=== PATIENT | male | born 1935 | race Asian ===

== ENCOUNTER 2024-03-24 20:09 | Observation (INO) | payer OTHER, SELFPAY ==
[2024-03-24 16:37] VITALS: BP 123/67
[2024-03-24 17:06] LABS: % Basophils 0.1 % (0-2); % Eosinophils 0.3 % (0-6); % Immature Granulocytes 0.8 % (0-0.5); % Lymphocytes 5.4 % (20.5-51.1); % Monocytes 6.2 % (1.7-9.3); % Neutrophils 87.2 % (42.2-75.2); Absolute Immature Granulocytes 0.1 10^3/uL (0-0.05); Absolute Lymphocytes 0.4 10^3/uL (1.2-3.4); Absolute Monocytes 0.5 10^3/uL (0.1-0.6); Absolute Neutrophils 6.8 10^3/uL (1.4-6.5); Hematocrit 37.2 % (39.0-52.0); Hemoglobin 13.1 g/dL (13.0-18.0); Mean Corp Hgb Conc. 35.2 g/dL (33.0-37.0); Mean Corpuscular Hgb 30.1 pg (27.0-31.0); Mean Corpuscular Volume 85.5 fL (80.0-94.0); Mean Platelet Volume 9.2 fL (7.4-10.4); Nucleated Red Blood Cells % 0 % (-); Platelet Count 148 10^3/uL (130-400); Red Blood Cell Count 4.35 10^6/uL (4.70-6.10); Red Cell Dist. Width 12.6 % (11.5-14.5); White Blood Cell Count 7.7 10^3/uL (4.8-10.8)
[2024-03-24 17:09] LABS: ALT (SGPT) 25 U/L (0-50); AST (SGOT) 23 U/L (17-59); Albumin 4.2 g/dl (3.5-5.0); Alkaline Phosphatase 121 U/L (38-126); Blood Urea Nitrogen 16 mg/dl (9-20); Calcium 8.8 mg/dl (8.4-10.2); Chloride 95 mmol/L (98-107); Glucose 224 mg/dl (70-99); Potassium 4.7 mmol/L (3.5-5.1); Sodium 133 mmol/L (135-145); Total Bilirubin 1.7 mg/dl (0.2-1.3); eGFR > 60.00
[2024-03-24 17:26] LABS: Carbon Dioxide 26 mmol/L (22-30)
[2024-03-24 18:22] VITALS: BP 137/53
[2024-03-24 18:49] LABS: COVID-19 Antigen Positive (Negative)
[2024-03-24 19:00] VITALS: BP 128/66
--- NOTE | 2024-03-24 19:10 | ED.GENMED ---
History of Present Illness
General
Chief Complaint: Weakness
Source: patient and family
Exam Limitations: none
Time Seen by Provider: 03/24/24 19:03
History of Present Illness
History of Present Illness:
See MDM
Past History
Past History
ED Past Medical History: NIDDM, Psychiatric (dementia) and Other (cirrhosis, ?hepatitis)
ED Past Surgical History: Other (liver transplant)
Patient has exhibited threatening behavior?: No
PSI?: No
Social History
Tobacco: Non-smoker
Alcohol: Former
Drug: None
Personal: Single
Living: with family
Employment: Retired
Phy Exam
Physical Exam
Physical Exam:
See MDM
Course
Orders/Labs/Results
Orders:
Orders
03/24/24 16:45
Complete Blood Count/With Diff Urgent
Comprehensive Metabolic Panel Urgent
03/24/24 18:28
COVID-19 Antigen Urgent
Source: Nasal Swab
Influenza A+B Rapid Molecular Urgent
SAMEERA Source: Nasal Swab
Specimen Description:
03/24/24 19:10
0.9% Sodium Chloride 1000 ml [Nss] 1,000 ml IV BOLUS
Abnormal Lab Results
03/24/24 03/24/24
16:45 18:28
RBC 4.35 L 10^6/uL
(4.70-6.10)
Hct 37.2 L %
(39.0-52.0)
Abs Immat Gran (auto) 0.1 H 10^3/uL
(0-0.05)
Absolute Neuts (auto) 6.8 H 10^3/uL
(1.4-6.5)
Absolute Lymphs (auto) 0.4 L 10^3/uL
(1.2-3.4)
Immature Gran % 0.8 H %
(0-0.5)
Neutrophils % 87.2 H %
(42.2-75.2)
Lymphocytes % 5.4 L %
(20.5-51.1)
Sodium 133 L mmol/L
(135-145)
Chloride 95 L mmol/L
(98-107)
Glucose 224 H mg/dl
(70-99)
Total Bilirubin 1.7 H mg/dl
(0.2-1.3)
SARS-CoV-2 Antigen Positive A
(Negative)
03/24/24 16:45
03/24/24 16:45
Vital Signs
Initial and Last Documented VS:
Initial Vital Signs
Temp Pulse Resp BP Pulse Ox
98.8 F 93 16 123/67 94
03/24/24 16:37 03/24/24 16:37 03/24/24 16:37 03/24/24 16:37 03/24/24 16:37
Last Documented Vital Signs
Temp Pulse Resp BP Pulse Ox
98.8 F 93 16 123/67 94
03/24/24 16:37 03/24/24 16:37 03/24/24 16:37 03/24/24 16:37 03/24/24 16:37
MDM/Problems Addressed
Differential Diagnosis Includes:
HPI and MDM Narrative:
88-year-old male presenting with generalized weakness and fatigue. This has been ongoing for the past several days. Family concerned because he has been so weak that he is not eating and drinking. They did test yesterday but was negative. On
arrival, patient is generally fatigued. He is unable to even sit himself up for lung exam. He is clinically dry. Will give IV fluids. Patient found to be COVID-positive. He is afebrile and not requiring supplemental oxygen. Lungs otherwise
clear. Will admit based on the fact that he is unable to perform ADLs
Physical exam
General: Weak and frail
HEENT: protecting airway. Dry mucous membranes
Neck: supple
CV: No evidence of cyanosis. Regular rate and
Resp: No accessory muscle use. Lungs clear
Abd: Non-distended
Extremities: No deformities
Neuro: alert
Psych: Flat affect
Skin: Intact
Problems Addressed including Acute and Chronic Conditions affecting care:
1. COVID-positive
Acuity: acute
Prognosis: stable
Details: Patient not requiring supplemental oxygen. Lungs clear
2. Generalized weakness
Acuity: acute
Prognosis: unstable
Details: Likely in the setting of COVID and decreased p.o. intake. Will give IV fluids
3. Hyperglycemia
Acuity: acute
Prognosis: stable
Details: Likely in setting of concurrent infectious etiology. Will give IV fluids. No evidence of DKA
Updates
Given that patient is profoundly weak and unable to perform activities of daily living, will admit
Differential Diagnosis (but not limited to): Pneumonia, COVID, influenza, dehydration, UTI
Testing considered: Chest x-ray lungs clear
Drug therapy (if applicable): OTC meds, please see d/c instruction regarding Rx drugs
Amount and/or Complexity of Data Reviewed
Clinical info obtained from: Patient. Son indicates decreased p.o. intake
External data reviewed: N/A
Labs I independently reviewed (but not limited to): White blood cell count normal, hyperglycemia
Radiology: N/A
Pulse Ox: not hypoxic
EKG independently reviewed: N/A
Cmm Operator: Sinus rhythm
Critical Care: N/A
Risk of Complication:
Social Determinants of health: Good social support
Discussed with other providers: Hospitalist
Escalation of Care includes Admit/Obs: Given profound weakness and the inability to perform ADLs, will admit
Occasional wrong word or 'sound a like' substitutions may have occurred due to the inherent limitations of voice recognition software. Read the chart carefully and recognize, using context, where substitutions have occurred.
*Critical Care Note
Total Time (30-74mins, 75-104mins- exclusive of procedures): Not Applicable
ED Attending Note
-
Portions of this chart may have been created with voice recognition software.� Occasional wrong word or��sound alike� substitutions may have occurred due to the inherent limitations of voice recognition software.
Discharge Plan
Departure
Patient Disposition: Admit
Date of Disposition: 03/24/24
Time of Disposition: 19:19
Admit to: Med/Surg
Presentation/result/management discussed w/ accepting MD/DO: Hospitalist
Discharge Problem:
COVID, Acute dehydration, Weakness
Prescriptions:
No Action
donepezil 10 mg tablet
10 mg PO HS
tamsulosin 0.4 mg capsule
0.4 mg PO BID
tacrolimus 1 mg Capsule
1 mg PO DAILY
Vemlidy 25 mg tablet
25 mg PO DAILY
escitalopram oxalate 5 mg tablet
5 mg PO DAILY
metformin 500 mg Tablet
500 mg PO BID@0800,1700 Qty: 60 0RF
oseltamivir 30 mg Capsule
30 mg PO BID 10 Days Qty: 20 0RF
Rx Instructions:
immunocompromised patient, 10 day course
Referrals:
Bunny Landeros MD [Family Provider] -
Interventions
Interventions:
*Risk Screen - Suicide Last Done: 03/24/24 18:24
*General Assessment Last Done: 03/24/24 18:24
*Neglect/Abuse Screening Last Done: 03/24/24 18:24
ED- Fall Risk Assessment Last Done: 03/24/24 18:24
*ED COVID-19 Vaccine History Last Done: 03/24/24 18:24
ED- Cardiac Assessment Last Done: 03/24/24 18:24
ED- Neurological Assessment Last Done: 03/24/24 18:24
ED- Pulmonary Assessment Last Done: 03/24/24 18:24
Discharge Date and Time
Print Language: SAMI
--- NOTE | 2024-03-24 19:17 | HPS.HSE ---
Family Physician
-
Family Physician: Bunny Landeros
Chief Complaint
-
For cough and weakness
History of Present Illness
88-year-old male who has a past medical history of liver transplantation patient previously been in usual state of health. He is generally active and communicative. Apparently started having nonproductive cough without fevers or chills over the
last 2 to 3 days. Yesterday was tested for COVID at home which was negative. However this morning the patient became very weak. He was unable to tolerate any p.o. He was not sitting up to even try to eat. He was having no nausea or vomiting.
There was no diarrhea. He denies any abdominal pain. He had no chest pain. There was no palpitations lightheadedness or dizziness. Patient has not had anything to eat all day today.
In the emergency department he was afebrile blood pressure was 128/66 pulse 93 and was at 94% on room air. CBC was unremarkable. Chemistries were notable for a sodium of 133 but otherwise unremarkable. T. bili was slightly elevated at 1.7 but
LFTs were otherwise within normal limits. He is COVID test was positive.
Medical History
Past Medical History
Past Medical History: Reports Dementia
Additional Past Medical History:
BPH
Past Surgical History: Reports Other (Liver Transplant)
Social History
Tobacco: Non-smoker
Alcohol: None
Drug: None
Personal:
Living: With Family
Employment: Retired
Family History
Family History: Not pertinent
Allergies / Home Medications
Allergies reflects when Allergies were last updated in [facility].
Home Medications with original date entered in [facility]
Allergy/Medication List:
Allergies
Allergy/AdvReac Type Severity Reaction Status Date / Time
No Known Allergies Allergy Verified 11/30/22 22:55
Home Medications
donepezil 10 mg tablet 10 mg PO HS Neurological Condition 11/26/22
tacrolimus 1 mg capsule, immediate-release 1 mg PO DAILY Autoimmune Disorder 11/26/22
tamsulosin 0.4 mg capsule 0.4 mg PO BID Urinary Issue 11/26/22
tenofovir alafenamide 25 mg tablet (Vemlidy) 25 mg PO DAILY Infection 11/26/22
escitalopram oxalate 5 mg tablet 5 mg PO DAILY Mental Health/Anxiety 06/24/23
fexofenadine 180 mg tablet 180 mg PO QPM Allergies 03/24/24
loperamide 2 mg tablet (Anti-Diarrheal (loperamide)) 2 mg PO DAILY diarrhea 03/24/24
Review of Systems
-
History Source: Patient and Family
Constitutional: Reports Fatigue
EENT: Reports No Symptoms
Respiratory: Reports Cough
Cardiac: Reports No Symptoms
Abdomen/GI: Reports No Symptoms
: Reports No Symptoms
Musculoskeletal: Reports No Symptoms
Skin: Reports No Symptoms
Neurological: Reports No Symptoms
Endocrine: Reports No Symptoms
Hematologic/Lymphatic: Reports No Symptoms
Psych: Reports No Symptoms
Physical Exam
Vital Signs
Vital Signs
Temp Pulse Resp BP Pulse Ox
98.8 F 93 16 128/66 94
03/24/24 16:37 03/24/24 16:37 03/24/24 16:37 03/24/24 19:00 03/24/24 19:00
Physical Exam
General: No Apparent Distress and Poor Appetite
HEENT: NormoCephalic, Anicteric, PERRLA and Other (dry mucus membranes)
Respiratory: Clear
Cardiac: S1/S2 and Regular Rhythm
Breast: Deferred by me
GI: Soft, Non Tender, Non Distended and Normal Bowel Sounds
Rectal: Deferred by Provider
Genito-urinary: Deferred by me
Musculoskeletal: No Clubbing, No Cyanosis and No Edema
Skin: Warm
Neuro: AO x 3
Hematologic/Lymphatic: No Lymphadenopathy
Psych: Calm
Laboratory Results
-
03/24/24 16:45
03/24/24 16:45
Laboratory Results
Total Bilirubin 1.7 mg/dl (0.2-1.3) H 03/24/24 16:45
AST 23 U/L (17-59) 03/24/24 16:45
ALT 25 U/L (0-50) 03/24/24 16:45
Alkaline Phosphatase 121 U/L (38-126) 03/24/24 16:45
Data Reviewed
-
Lab Data: Labs Reviewed by me
Old Records: Reviewed
Impression/Plan
-
IMPRESSION:
88-year-old male with past medical history significant for liver transplantation on immunosuppressants who presents to the emergency department with cough fatigue and weakness and inability to tolerate p.o. Unable to go home due to weakness. Found
to have COVID in the emergency department. Labs otherwise unremarkable.
PLAN:
COVID 19 infection - Patient with weakness and fatigue and poor po intake from COVID 19. High risk patient due to transplant and immunosuppression. No oxygen requirements.
- admit to observation
- start paxlovid
- supportive care with antitussives
- iv fluids NS at 100ml/hr after initial 1 L bolus
- advance diet
- PT eval
Liver Tx
- continue tacrolimus 1mg daily
- continue Vemlidy 25mg po daiy
BPH
- tamsulosin 0.8 hs
DVT PPX - lovenox sq
Full Code
[2024-03-24] MEDS: NSS 1000 IV ×2 (19:28→21:47)
[2024-03-24 20:00] VITALS: BP 126/67
[2024-03-24 20:55] VITALS: BP 123/74; BMI 22.5
[2024-03-24] MEDS: LOVENOX 40 MG SC (21:32)
[2024-03-24] MEDS: MUCINEX PO (22:13)
[2024-03-24 23:20] VITALS: BP 120/74
[2024-03-24] MEDS: PAXLOVID 150-100 MG DOSE PACK 1 DOSE PO (23:59)
[2024-03-25 07:00] VITALS: BP 135/71
[2024-03-25] MEDS: MUCINEX 600 MG PO ×2 (08:38→20:42)
[2024-03-25] MEDS: LEXAPRO 5 MG PO (08:38)
[2024-03-25] MEDS: PAXLOVID 150-100 MG DOSE PACK 1 DOSE PO ×2 (08:38→20:42)
[2024-03-25] MEDS: PROGRAF 1 MG PO (08:38)
[2024-03-25] MEDS: NON-FORMULARY ITEM 25 MG PO (08:39)
[2024-03-25] MEDS: NSS 1000 IV ×2 (08:50→17:33)
[2024-03-25 09:05] LABS: Blood Urea Nitrogen 15 mg/dl (9-20); Calcium 8.1 mg/dl (8.4-10.2); Carbon Dioxide 29 mmol/L (22-30); Chloride 97 mmol/L (98-107); Estimated Creatinine Clearance 43 ml/min; Glucose 176 mg/dl (70-99); Potassium 4.2 mmol/L (3.5-5.1); Sodium 133 mmol/L (135-145); eGFR > 60.00
--- NOTE | 2024-03-25 10:46 | W.PN.HOSP.TC ---
Today's Communication/Plan
-
PT eval
monitor po intake
Ivf in the interim
paxlovid
Assessment / Plan
Assessment / Plan
IMPRESSION:
88-year-old male with past medical history significant for liver transplantation on immunosuppressants who presents to the emergency department with cough fatigue and weakness and inability to tolerate p.o. Unable to go home due to weakness. Found
to have COVID in the emergency department. Labs otherwise unremarkable.
PLAN:
COVID 19 infection - Patient with weakness and fatigue and poor po intake from COVID 19. High risk patient due to transplant and immunosuppression.
- remains on room air for now.
- started paxlovid -complete 5d course.
- supportive care with antitussives
- iv fluids NS for now. DC if tolerating diet.
- advance diet
- PT eval
Liver Tx
- continue tacrolimus 1mg daily
- continue Vemlidy 25mg po daiy
BPH
- tamsulosin 0.8 hs
DVT PPX - lovenox sq
Full Code
Anticipated Discharge: 24 - 48 hours
Subjective/Interval History
-
Date of Service: March 25, 2024
no overnight events
remains on air
no complaints
Objective Data
-
Labs:
Laboratory Results
03/25/24
07:59
Sodium 133 L
Potassium 4.2
Chloride 97 L
Carbon Dioxide 29
BUN 15
Creatinine 1.0
Glucose 176 H
Calcium 8.1 L
Vital Signs:
Vital Signs
Temp Pulse Resp BP Pulse Ox
99 F 72 16 135/71 92
03/25/24 07:00 03/25/24 07:00 03/25/24 07:00 03/25/24 07:00 03/25/24 07:00
I&O
03/24/24 03/25/24 03/26/24
06:59 06:59 06:59
Intake Total 1099 / 1099
Balance 1099
Physical Exam
-
General: No Apparent Distress
HEENT: Normocephalic and Atraumatic
Respiratory: Clear to Auscultation; Negative Wheezes or Rales
Cardiac: Regular Rhythm and S1/S2
GI: Soft, Nontender, Nondistended and Normal Bowel Sounds
Musculoskeletal: No Edema
Neuro: Awake and AO x 3
Psych: Calm
--- NOTE | 2024-03-25 10:51 | CM ---
Addendum entered by Pat Olson, RN 03/25/24 14:39:
CM consult received for VN/homecare. Referral sent for VN via [facility].
Original Note:
Reviewed the chart notes and spoke with the patient's son via telephone due to patient being Covid + with documented dementia. The patient is being admitted under observational status. The [facility] letter was explained to the son and a copy given to
the patient's RN to place in room for further review if needed. The patient's son had no questions with regards to the letter.
The patient resides with his son in a two story home with four steps to enter. The patient is independent with ADLs. No DME/VN/SNF per son. The patient's pharmacy of choice is the [facility]. CM continues to be available to
patient/family and is monitoring medical plan for needs at discharge.
Plan: Discharge plans will depend on the patient's progress. POX current 92% RA.
[2024-03-25 15:00] VITALS: BP 118/70
[2024-03-25] MEDS: CLARITIN 10 MG PO (17:30)
[2024-03-25] MEDS: ARICEPT 10 MG PO (17:30)
[2024-03-25] MEDS: LOVENOX 40 MG SC (20:41)
[2024-03-25 23:16] VITALS: BP 127/77
[2024-03-26] MEDS: NSS 1000 IV (02:16)
[2024-03-26 07:40] VITALS: BP 116/59
[2024-03-26] MEDS: PAXLOVID 150-100 MG DOSE PACK 1 DOSE PO (08:23)
[2024-03-26] MEDS: PROGRAF 1 MG PO (08:23)
[2024-03-26] MEDS: NON-FORMULARY ITEM 25 MG PO (08:23)
[2024-03-26] MEDS: MUCINEX 600 MG PO (08:23)
[2024-03-26] MEDS: LEXAPRO 5 MG PO (08:23)
--- NOTE | 2024-03-26 11:05 | W.PN.HOSP.TC ---
Today's Communication/Plan
-
cont paxlovid
dc home
Assessment / Plan
Assessment / Plan
IMPRESSION:
88-year-old male with past medical history significant for liver transplantation on immunosuppressants who presents to the emergency department with cough fatigue and weakness and inability to tolerate p.o. Unable to go home due to weakness. Found
to have COVID in the emergency department. Labs otherwise unremarkable.
PLAN:
COVID 19 infection - Patient with weakness and fatigue and poor po intake from COVID 19. High risk patient due to transplant and immunosuppression.
- remains on room air for now.
- started paxlovid -complete 5d course. Hold flomax while paxlovid
- supportive care with antitussives
- DC IVF. tolerating diet.
- advance diet
- PT eval
Liver Tx
- continue tacrolimus 1mg daily
- continue Vemlidy 25mg po daiy
BPH
-Hold flomax while paxlovid
DVT PPX - lovenox sq
Full Code
PT/OT-home VN
More than 30 minutes spent in discharge including
Final examination of the patient
Summarizing hospital stay
Instructions for continuing care to all relevant caregivers
Preparation of discharge records, prescriptions, and referral forms
Total time spent (in minutes): 45
update son over the phone. agreed for dc
Anticipated Discharge: Today
Subjective/Interval History
-
Date of Service: March 26, 2024
Tolerating diet
sitting in bed
on room air
feeling alot better
Objective Data
-
Vital Signs:
Vital Signs
Temp Pulse Resp BP Pulse Ox
97.6 F 66 18 116/59 97
03/26/24 07:40 03/26/24 07:40 03/26/24 07:40 03/26/24 07:40 03/26/24 07:40
I&O
03/25/24 03/26/24 03/27/24
06:59 06:59 06:59
Intake Total 1099 / 3119
Balance 1099 / 3119
Physical Exam
-
General: No Apparent Distress and Other (sitting in chair)
HEENT: Normocephalic and Atraumatic
Respiratory: Clear to Auscultation; Negative Wheezes or Rales
Cardiac: Regular Rhythm and S1/S2
GI: Soft, Nontender, Nondistended and Normal Bowel Sounds
Musculoskeletal: No Edema
Neuro: Awake and AO x 3
Psych: Calm
--- NOTE | 2024-03-26 11:15 | W.DCSUMMARY ---
Discharge Summary
Discharge Data
Date of Admission: 03/24/24
Date of Discharge: 03/26/24
-
Pending Results: No
Hospital Course
88-year-old male with past medical history significant for liver transplantation on immunosuppressants who presents to the emergency department with cough fatigue and weakness and inability to tolerate p.o. patient was found to be COVID-positive.
Patient was stable on room air. Patient was started on Paxlovid. Patient was started on IV fluid resuscitation. Flomax was held while on Paxlovid. Patient diet slowly improved. IV fluid was discontinued. Patient was evaluated by physical
therapy and recommended home VN. Patient remained stable on room air and patient was ambulating in room without any difficulty. Patient stated he was feeling better. Patient be discharged home with VN. Patient son was updated on day of
discharge and agree with discharge planning home.
Discharge Plan
-
Patient Disposition: Home with Home Care
Discharge Diagnosis/Procedures: Acute COVID-19 infection
Condition: Fair
Diet: As tolerated
Activity: With assistance and As tolerated
Driving Restrictions: No driving
Other Services: VN
Activity Restrictions/Additional Instructions:
Hold Tamsulosin ( flomax) while on Paxlovid
Referrals:
Bunny Landeros MD [Family Provider] - in less than 1 week
Prescriptions:
New
Paxlovid 150-100 mg tablets,dose pack
See Rx Instructions .ROUTE .COMPLEX Qty: 20 0RF
Rx Instructions:
orally per package directions. Take for additional 6 dose.
Continued
donepezil 10 mg tablet
10 mg PO QPM
tacrolimus 1 mg Capsule
1 mg PO DAILY
Vemlidy 25 mg tablet
25 mg PO DAILY
escitalopram oxalate 5 mg tablet
5 mg PO DAILY
loperamide [Anti-Diarrheal (loperamide)] 2 mg Tablet
2 mg PO DAILY
fexofenadine 180 mg Tablet
180 mg PO QPM
Held
tamsulosin 0.4 mg capsule
0.8 mg PO QPM
Hold Instructions: Resume on 03/30/24. Hold while on Paxlovid
Discharge Orders:
Discharge Patient (As Directed); Ordered 03/26/24
Ordered By: Gen Villaseñor
Discharge Date and Time
Discharge Date/Time: 03/26/24 14:27
Print Language: NIUEAN
--- NOTE | 2024-03-26 12:43 | CM ---
Reviewed the chart notes. Patient for discharge to home today with VN services. CM continues to be available to patient/family and is monitoring medical plan for needs at discharge.
Plan: Discharge to home with VN. Son will provide transportation home.
[2024-03-26 13:40] VITALS: BP 127/67
== END 2024-03-26 14:27 | disposition home health service (06) ==
LOC: 2 NORTH 20:09
PROVIDERS: Emergency Medicine; Physician Assistant; ADMITTING PHYSICIAN Internal Medicine; ATTENDING PHYSICIAN Hospitalist; EMERGENCY PHYSICIAN Student in an Organized Health Care Education/Training Program; FAMILY PHYSICIAN Family Medicine
DX: U07.1 COVID-19 (principal); R53.1 Weakness; Z94.4 Liver transplant status; E11.65 Type 2 diabetes mellitus with hyperglycemia; R53.83 Other fatigue; E86.0 Dehydration; D84.821 Immunodeficiency due to drugs; R05.9 Cough, unspecified; F03.90 Unspecified dementia, unspecified severity, without behavioral disturbance, psychotic disturbance, mood disturbance, and anxiety; N40.0 Benign prostatic hyperplasia without lower urinary tract symptoms; Z79.621 Long term (current) use of calcineurin inhibitor; Z79.624 Long term (current) use of inhibitors of nucleotide synthesis
CPT/HCPCS: 80048; 80053; 83735; 85025; 87502; 87811; 96360; 97162; 99284; G0378

== ENCOUNTER 2024-04-01 06:27 | Inpatient (IN) | payer OTHER, SELFPAY ==
[2024-03-31 20:56] VITALS: BP 137/68
[2024-03-31 21:08] LABS: % Basophils 0.1 % (0-2); % Eosinophils 0.4 % (0-6); % Immature Granulocytes 1.5 % (0-0.5); % Lymphocytes 5.5 % (20.5-51.1); % Monocytes 7.3 % (1.7-9.3); % Neutrophils 85.2 % (42.2-75.2); Absolute Immature Granulocytes 0.1 10^3/uL (0-0.05); Absolute Lymphocytes 0.4 10^3/uL (1.2-3.4); Absolute Monocytes 0.5 10^3/uL (0.1-0.6); Absolute Neutrophils 6.2 10^3/uL (1.4-6.5); Hematocrit 35.8 % (39.0-52.0); Hemoglobin 12.7 g/dL (13.0-18.0); Mean Corp Hgb Conc. 35.5 g/dL (33.0-37.0); Mean Corpuscular Hgb 29.8 pg (27.0-31.0); Mean Platelet Volume 9.4 fL (7.4-10.4); Nucleated Red Blood Cells % 0 % (-); Platelet Count 180 10^3/uL (130-400); Red Blood Cell Count 4.26 10^6/uL (4.70-6.10); Red Cell Dist. Width 12.7 % (11.5-14.5); White Blood Cell Count 7.3 10^3/uL (4.8-10.8)
[2024-03-31 21:22] LABS: ALT (SGPT) 39 U/L (0-50); AST (SGOT) 45 U/L (17-59); Albumin 3.9 g/dl (3.5-5.0); Alkaline Phosphatase 117 U/L (38-126); Blood Urea Nitrogen 21 mg/dl (9-20); Carbon Dioxide 28 mmol/L (22-30); Chloride 101 mmol/L (98-107); Glucose 290 mg/dl (70-99); Potassium 4.5 mmol/L (3.5-5.1); Sodium 139 mmol/L (135-145); Total Bilirubin 0.5 mg/dl (0.2-1.3); Total Protein 6.6 g/dl (6.3-8.2)
[2024-03-31 22:51] VITALS: BP 123/68
[2024-04-01] VITALS (12 sets, daily range): BP systolic 103–143; BP diastolic 64–83; PULSE 71–85; O2SAT 95; BMI 23.6; BMI 22.9
[2024-04-01] MEDS: NSS 1000 IV ×3 (01:17→17:49)
--- NOTE | 2024-04-01 02:04 | ED.GENMED ---
History of Present Illness
General
Chief Complaint: Generalized Pain
Time Seen by Provider: 04/01/24 00:36
History of Present Illness
History of Present Illness:
88-year-old male with history of liver transplant 10 years ago, dementia presenting to the emergency department for increased confusion. Patient arrives with son and [id number] who note that today patient seem very out of it, has been staring
into space, less responsive and has not been eating or drinking. He was recently mated to the hospital on 03/24 for COVID-19. He was discharged on 03/26. He finished his Paxlovid yesterday. He has still been having cough. Upon discharge from the
hospital, she notes that he was feeling better, however had an acute change today. Patient himself is a limited historian, however denies difficulty breathing, chest pain, abdominal pain. Family denies any known history of urinary tract
infections. No report of any fevers. No additional history obtained at this time.
Past History
Past History
ED Past Medical History: NIDDM, Psychiatric (dementia) and Other (cirrhosis, ?hepatitis)
ED Past Surgical History: Other (liver transplant)
Patient has exhibited threatening behavior?: No
PSI?: No
Social History
Tobacco: Non-smoker
Alcohol: Former
Drug: None
Personal: Single
Living: with family
Employment: Retired
Phy Exam
Physical Exam
Physical Exam:
General: Well-appearing, no clinical signs of dehydration, nontoxic and in no acute distress
HEENT: protecting airway
Neck: appears supple
CV: Normal heart rate, regular rhythm
Resp: No accessory muscle use, no increased work of breathing, scant rhonchi to the bases.
Abd: Soft and non-distended, no tenderness to palpation
Extremities: No deformities, no swelling, no erythema
Neuro: alert, no focal neurologic deficit -disoriented to place, chronic
: deferred
Rectal: deferred
Psych: Normal affect
Skin: Intact
Course
Orders/Labs/Results
Orders:
Orders
03/31/24 20:59
Complete Blood Count/With Diff Urgent
Comprehensive Metabolic Panel Urgent
03/31/24 22:46
CR Chest - 2 Views Urgent
Comment:
Reason For Exam: generalized weakness, recent covid infection
04/01/24 00:58
0.9% Sodium Chloride 1000 ml [Nss] 1,000 ml IV BOLUS
04/01/24 00:59
CT Head W/o Iv Contrast Urgent
Comment:
Reason For Exam: change in mental status
04/01/24 02:13
COVID-19 Antigen Urgent
Source: Nasal Swab
04/01/24 02:28
Urinalysis Reflex To Culture Urgent
Date Specimen was Collected: 04/01/24
Time Specimen was Collected: 02:22
Urine Microscopic Reflex Cult Urgent
Urine Culture Urgent
SAMEERA Source: U
Specimen Description:
Date Specimen was Collected: 04/01/24
Time Specimen was Collected: 02:22
Abnormal Lab Results
03/31/24 04/01/24
20:59 02:28
RBC 4.26 L 10^6/uL
(4.70-6.10)
Hgb 12.7 L g/dL
(13.0-18.0)
Hct 35.8 L %
(39.0-52.0)
Abs Immat Gran (auto) 0.1 H 10^3/uL
(0-0.05)
Absolute Lymphs (auto) 0.4 L 10^3/uL
(1.2-3.4)
Immature Gran % 1.5 H %
(0-0.5)
Neutrophils % 85.2 H %
(42.2-75.2)
Lymphocytes % 5.5 L %
(20.5-51.1)
BUN 21 H mg/dl
(9-20)
Creatinine 1.6 H mg/dL
(0.7-1.3)
Glucose 290 H mg/dl
(70-99)
Urine Bacteria (Reflex) Moderate A
(Negative)
Urine Glucose 3+ A
(Negative)
Urine Albumin (Reflex) 1+ A
(Neg - Trace)
03/31/24 20:59
03/31/24 20:59
Vital Signs
Initial and Last Documented VS:
Initial Vital Signs
Temp Pulse Resp BP Pulse Ox
98.1 F 75 16 137/68 95
03/31/24 20:56 03/31/24 20:56 03/31/24 20:56 03/31/24 20:56 03/31/24 20:56
Last Documented Vital Signs
Temp Pulse Resp BP Pulse Ox
98.1 F 75 20 134/80 92
03/31/24 20:56 04/01/24 04:00 04/01/24 04:00 04/01/24 04:00 04/01/24 04:00
MDM/Problems Addressed
MDM/Problems Addressed:
88-year-old male with history of dementia and liver transplant 10 years ago presenting to the emergency department for increased confusion and fatigue. Vital signs are normal.
On exam, patient is well-appearing, no acute distress. Does appear slightly fatigued, however no increased respiratory effort, overall nontoxic. Benign cardiac, pulmonary, abdominal exam. Patient disoriented, however reported to be chronic.
Otherwise no focal neurologic deficits. Labs obtained upon patient's arrival, do show elevated creatinine, consistent with dehydration. Could be contributing to patient's symptoms. Will IV fluids. Will repeat chest x-ray imaging to evaluate for
for superimposed pneumonia. Will check urinalysis to evaluate for possible UTI. Given age and change in mental status, will also obtain CT brain imaging. Will also recheck COVID, assess if patient is still positive
04:30 -CT brain without acute intracranial abnormality. Urine without evidence of infection, however does show bacteria. Will send urine culture. COVID is now negative. Given patient's change in mental status, not eating or drinking with
evidence of dehydration, will admit for continued monitoring and IV fluids.
*Critical Care Note
Total Time (30-74mins, 75-104mins- exclusive of procedures): Not Applicable
ED Attending Note
-
Portions of this chart may have been created with voice recognition software.� Occasional wrong word or��sound alike� substitutions may have occurred due to the inherent limitations of voice recognition software.
Discharge Plan
Departure
Prescriptions:
No Action
donepezil 10 mg tablet
10 mg PO QPM
tamsulosin 0.4 mg capsule
0.8 mg PO QPM
tacrolimus 1 mg Capsule
1 mg PO DAILY
Vemlidy 25 mg tablet
25 mg PO DAILY
escitalopram oxalate 5 mg tablet
5 mg PO DAILY
loperamide [Anti-Diarrheal (loperamide)] 2 mg Tablet
2 mg PO DAILY
fexofenadine 180 mg Tablet
180 mg PO QPM
Paxlovid 150-100 mg tablets,dose pack
See Rx Instructions .ROUTE .COMPLEX Qty: 20 0RF
Rx Instructions:
orally per package directions. Take for additional 6 dose.
Referrals:
Bunny Landeros MD [Family Provider] -
Interventions
Interventions:
*Risk Screen - Suicide Last Done: 04/01/24 00:12
*General Assessment Last Done: 04/01/24 01:18
*Neglect/Abuse Screening Last Done: 04/01/24 00:12
*ED COVID-19 Vaccine History Last Done: 04/01/24 01:18
Discharge Date and Time
Print Language: GERMAN
[2024-04-01 02:33] LABS: COVID-19 Antigen Negative (Negative)
[2024-04-01 02:37] LABS: Urine Albumin 1+ (Neg - Trace); Urine Bilirubin Negative (Negative); Urine Character Clear (Clear); Urine Color Yellow; Urine Glucose 3+ (Negative); Urine Ketone Negative (Negative); Urine Leukocyte Negative (Negative); Urine Nitrite Negative (Negative); Urine Occult Blood Negative (Negative); Urine Urobilinogen Negative (Neg - 1+)
[2024-04-01 02:59] LABS: Urine Amorphous Seen; Urine Hyaline Cast >15 /LPF (0-2); Urine Mucus Many
[2024-04-01 03:00] LABS: Urine Bacteria Moderate (Negative); Urine Red Blood Cell 0-2 /HPF (0-2)
--- NOTE | 2024-04-01 06:14 | HPS.HSE ---
Family Physician
-
Family Physician: Bunny Landeors
Chief Complaint
-
Weakness
History of Present Illness
Patient is an 88y M with PMH significant for cirrhosis s/p liver transplant, prostate cancer, dementia and recent admission for COVID-19 infection who presents to ED for evaluation of increased confusion and weakness. History obtained primarily
from the family / ED staff. Patient was admitted here 03/24 - 03/26 with weakness and COVID-19 positivity. He was started on Paxlovid and discharged to home in improved condition.
Family states that he has gradually declined since that time with increased weakness, confusion, poor appetite, etc.
In the ED, patient is resting comfortably. He offers no complaints.
Medical History
Past Medical History
Past Medical History: Reports Other
Additional Past Medical History:
Cirrhosis / Hep B
Prostate Cancer s/p XRT
Senile Dementia
Past Surgical History: Reports Other
Additional Past Surgical History:
Liver Transplant
Social History
Tobacco: Non-smoker
Alcohol: None
Drug: None
Living: With Family
Family History
Family History: Not pertinent
Allergies / Home Medications
Allergies reflects when Allergies were last updated in [facility].
Home Medications with original date entered in [facility]
Allergy/Medication List:
Allergies
Allergy/AdvReac Type Severity Reaction Status Date / Time
No Known Allergies Allergy Verified 11/30/22 22:55
Home Medications
donepezil 10 mg tablet 10 mg PO QPM Neurological Condition 11/26/22
tacrolimus 1 mg capsule, immediate-release 1 mg PO DAILY Autoimmune Disorder 11/26/22
tamsulosin 0.4 mg capsule 0.8 mg PO QPM Urinary Issue 11/26/22
tenofovir alafenamide 25 mg tablet (Vemlidy) 25 mg PO DAILY Infection 11/26/22
escitalopram oxalate 5 mg tablet 5 mg PO DAILY Mental Health/Anxiety 06/24/23
fexofenadine 180 mg tablet 180 mg PO QPM Allergies 03/24/24
loperamide 2 mg tablet (Anti-Diarrheal (loperamide)) 2 mg PO DAILY diarrhea 03/24/24
nirmatrelvir 150 mg-ritonavir 100 mg tablets in a dose pack (Paxlovid) See Rx Instructions PO .COMPLEX #20 ea 03/26/24
Review of Systems
-
History Source: Patient and Family
A 12 point ROS was completed and negative except as noted: Yes
Constitutional: Reports Fatigue; Denies Fever or Chills
EENT: Denies Sore Throat
Respiratory: Reports Cough; Denies Trouble Breathing
Cardiac: Denies Chest Pain or Palpitations
Abdomen/GI: Reports Anorexia; Denies Abdominal Pain, Nausea, Vomiting or Diarrhea
: Denies Dysuria, Frequency or Flank Pain
Neurological: Reports Weakness; Denies Dizzy or Headache
Physical Exam
Vital Signs
Vital Signs
Temp Pulse Resp BP Pulse Ox
98.1 F 70 22 137/74 94
03/31/24 20:56 04/01/24 06:00 04/01/24 06:00 04/01/24 06:00 04/01/24 06:00
Physical Exam
General: Other (88y M in no acute distress.)
HEENT: Moist mucous membranes
Respiratory: Clear; No Wheezes, Rales or Rhonchi
Cardiac: S1/S2 and Regular Rhythm; No Murmur
GI: Soft, Non Tender, Non Distended and Normal Bowel Sounds
Musculoskeletal: No Clubbing, No Cyanosis and No Edema
Neuro: Awake and Alert
Laboratory Results
-
03/31/24 20:59
03/31/24 20:59
Laboratory Results
Total Bilirubin 0.5 mg/dl (0.2-1.3) 03/31/24 20:59
AST 45 U/L (17-59) 03/31/24 20:59
ALT 39 U/L (0-50) 03/31/24 20:59
Alkaline Phosphatase 117 U/L (38-126) 03/31/24 20:59
Impression/Plan
-
A/P: Patient is an 88y M with PMH significant for dementia, liver transplant and recent COVID-19 infection who returns to ED for evaluation of weakness, confusion and decreased appetite.
BRIT
- Admit for further evaluation and treatment.
- SCr = 1.6 compared to known baseline of 1.0.
- Suspect combination of med effect (Paxlovid + tacrolimus and Vemlidy), decreased PO intake, etc.
- Patient has completed Paxlovid.
- Will hold Vemlidy acutely and resume once renal function is improving.
- IVFs overnight and follow for return to baseline renal function.
Generalized Weakness
- Likely secondary to the above + recent COVID-19 illness.
- PT / OT evaluations.
- Address BRIT as noted above.
- Follow for gradual clinical improvement.
History of Cirrhosis s/p Liver Transplant
History of Hepatitis B
- Stable. Continue tacrolimus.
- Resume Vemlidy once renal function is improving / trending towards baseline.
DM-II
- Patient not on any medications at this time.
- Follow glucose and cover with SSI as needed.
- Update A1C.
History of Prostate Cancer s/p XRT
- Stable. Tamsulosin on hold for recent Paxlovid course.
- Resume upon discharge.
- Bladder scan protocol.
Senile Dementia
- Acute confusion at home today likely secondary to acute infection.
- Risk for acute delirium / agitation during hospital stay.
- Follow for any changes.
DVT Prophylaxis: Subcut Heparin
Code Status: Full
[2024-04-01] MEDS: HEPARIN 5000 UNITS SC ×2 (10:11→21:06)
[2024-04-01] MEDS: LEXAPRO 5 MG PO (10:11)
[2024-04-01] MEDS: PROGRAF 1 MG PO (10:12)
[2024-04-01 10:49] LABS: Glucose - Point of Care 184 mg/dl (70-99)
[2024-04-01] MEDS: NOVOLOG FLEXPEN-LOW RESISTANCE 1 UNITS SC ×2 (11:00→13:52)
[2024-04-01 11:25] LABS: Blood Urea Nitrogen 18 mg/dl (9-20); Calcium 8.5 mg/dl (8.4-10.2); Carbon Dioxide 28 mmol/L (22-30); Chloride 105 mmol/L (98-107); Estimated Creatinine Clearance 33 ml/min; Glucose 194 mg/dl (70-99); Sodium 141 mmol/L (135-145)
[2024-04-01 12:11] LABS: Glucose - Point of Care 197 mg/dl (70-99)
[2024-04-01] MEDS: NOVOLOG FLEXPEN-LOW RESISTANCE SC (17:47)
[2024-04-01] MEDS: ARICEPT 10 MG PO (17:49)
[2024-04-01 17:53] LABS: Glucose - Point of Care 123 mg/dl (70-99)
[2024-04-01 21:29] LABS: Glucose - Point of Care 139 mg/dl (70-99)
[2024-04-02] MEDS: NSS 1000 IV (03:49)
[2024-04-02 05:37] LABS: Hematocrit 30.8 % (39.0-52.0); Hemoglobin 11.1 g/dL (13.0-18.0); Mean Corpuscular Hgb 31.1 pg (27.0-31.0); Mean Corpuscular Volume 86.3 fL (80.0-94.0); Mean Platelet Volume 9.5 fL (7.4-10.4); Platelet Count 170 10^3/uL (130-400); Red Blood Cell Count 3.57 10^6/uL (4.70-6.10); Red Cell Dist. Width 12.4 % (11.5-14.5); White Blood Cell Count 3.4 10^3/uL (4.8-10.8)
[2024-04-02 06:01] LABS: ALT (SGPT) 23 U/L (0-50); AST (SGOT) 19 U/L (17-59); Albumin 2.9 g/dl (3.5-5.0); Alkaline Phosphatase 83 U/L (38-126); Blood Urea Nitrogen 16 mg/dl (9-20); Carbon Dioxide 26 mmol/L (22-30); Chloride 107 mmol/L (98-107); Estimated Creatinine Clearance 36 ml/min; Glucose 164 mg/dl (70-99); Sodium 142 mmol/L (135-145); Total Bilirubin 0.3 mg/dl (0.2-1.3); Total Protein 5.5 g/dl (6.3-8.2); eGFR 58.89
[2024-04-02 07:58] LABS: Glucose - Point of Care 152 mg/dl (70-99)
[2024-04-02 08:28] VITALS: BP 145/73
--- NOTE | 2024-04-02 08:30 | W.PN.HOSP.TC ---
Today's Communication/Plan
-
Plan is to find a bed for the patient in the rehab and then discharge
Assessment / Plan
Assessment / Plan
Impression
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
presented with decreased appetite and increased confusion.
Assessment
#1 acute kidney injury secondary to tacrolimus/Vemlidy?
#2. Newly diagnosed diabetes mellitus
#3. Senile dementia
#4. Liver transplant
#6. Prostate cancer
Plan
1. Acute kidney injury secondary to tacrolimus/Vemlidy?
Patient has been taking immunosuppressants post liver transplant
Presented with increased confusion and decreased appetite
I recently took Paxlovid for COVID treatment, Paxlovid can increase tacrolimus levels that can cause acute kidney injury
Serum creatinine 1.6 at the time of admission on March 31
Patient regimen 1.2 today on April 02, 2024
Check tacrolimus level in blood
Hold IV fluids
Monitor RFT's
Manage accordingly
2. Newly diagnosed diabetes mellitus?
Patient has been having increased blood sugar levels since admission on March 31, 2024
No past medical history of diabetes available
HbA1c 8.7
Observe glucose levels
Give insulin according to sliding scale
#3. Senile dementia
Continue donepezil
Acute confusion episode in the emergency on March 31, 2024 that could be secondary to COVID that is post-COVID encephalopathy
#4. Liver transplant secondary to liver cirrhosis
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
Patient currently is on immunosuppressants including tacrolimus and tenofovir
Once patient's acute kidney injury resolves tenofovir can also be continued
#6. Prostate cancer
treated with radiation therapy
Takes tamsulosin which is currently on hold due to Paxlovid
Bladder scan pending
Can continue tamsulosin once acute kidney injury resolves
No SNF utilization history; Home Health services with [facility] in the past
Will need ambulance transportation
Patient has dementia; ambulated 3-4 steps with RW and assist of 1; PT recommended SNF vs. Home PT; family unable to care for patient in the home and agreeable to SNF; options for facilities identified; preferences are [facility], [facility] and
[facility]; referrals sent via [facility]
CODE STATUS
Full code
DVT prophylaxis
Heparin
Anticipated Discharge: 24 - 48 hours
Subjective/Interval History
-
Date of Service: April 02, 2024
Patient is an 86-year-old male with senile dementia, history of liver transplant for liver cirrhosis and prostate cancer treated with radiation therapy.
He is unable to provide his history but is able to communicate when asked about any discomfort or issues which she denies. Patient was recently admitted from 24 March to 26 March with COVID-19 and completed Paxlovid course on March 31,
2023
He knows his name but is unable to communicate information about when and how he was brought to the hospital
Objective Data
-
Labs:
Laboratory Results
04/02/24
05:13
WBC 3.4 L
Hgb 11.1 L
Hct 30.8 L
Plt Count 170
Sodium 142
Potassium 4.0
Chloride 107
Carbon Dioxide 26
BUN 16
Creatinine 1.2
Glucose 164 H
Calcium 8.0 L
Total Bilirubin 0.3
AST 19
ALT 23
Alkaline Phosphatase 83
Vital Signs:
Vital Signs
Temp Pulse Resp BP Pulse Ox
97.7 F 68 18 145/73 96
04/02/24 08:28 04/02/24 08:28 04/02/24 08:28 04/02/24 08:28 04/02/24 08:28
I&O
04/01/24 04/02/24 04/03/24
06:59 06:59 06:59
Intake Total 1529
Balance 1529
Review of Systems
-
All other systems: Reviewed and negative
Physical Exam
-
General: Well Developed, Well Nourished and Conversant (Can describe any discomfort but does not remember details about his admission or his medical history)
HEENT: Normocephalic and Atraumatic
Respiratory: Clear to Auscultation
Cardiac: Regular Rhythm and S1/S2
GI: Soft, Nontender, Nondistended and Normal Bowel Sounds
Genito-urinary: No Costovertebral Tender
Musculoskeletal: No Clubbing, No Cyanosis and No Edema
Skin: Warm and Dry
Neuro: Awake, No Motor Deficits, No Sensory Deficits and Other (Patient has confused appearance due to his dementia Provides history about active symptoms but cannot provide any information about his medical profile Did not know when and how he was
brought to the hospital)
Hematologic / Lymphatic: No Lymphadenopathy
Psych: Calm
[2024-04-02] MEDS: PROGRAF 1 MG PO (10:27)
[2024-04-02] MEDS: HEPARIN 5000 UNITS SC ×2 (10:29→21:04)
[2024-04-02] MEDS: LEXAPRO 5 MG PO (10:29)
[2024-04-02] MEDS: NOVOLOG FLEXPEN-LOW RESISTANCE 300 UNITS SC (10:30)
--- NOTE | 2024-04-02 10:46 | CM ---
Initial assessment completed with patient's son and [id number] via phone
Pharmacy verified: [facility] [address], [place], [place]
Patient lives with son, [id number] and granddaughter; 3 story home; 5 steps to enter; 12 steps to his bedroom and bathroom; home has powder room on 1st floor
PLOF: per family, patient was independent with ambulation, stairs, and ADLs
No SNF utilization history; Home Health services with [facility] in the past
Will need ambulance transportation
Patient has dementia; ambulated 3-4 steps with RW and assist of 1; PT recommended SNF vs. Home PT; family unable to care for patient in the home and agreeable to SNF; options for facilities identified; preferences are [facility], [facility] and
[facility]; referrals sent via [facility]
Plan: discharge to SNF pending bed availability and approval of insurance Authorization
[2024-04-02 12:12] LABS: Glucose - Point of Care 184 mg/dl (70-99)
[2024-04-02 12:46] VITALS: BP 141/80; PULSE 82; O2SAT 95
[2024-04-02 12:58] LABS: Glycohemoglobin (HgbA1c) 8.7 % (4.0-5.6)
[2024-04-02] MEDS: NOVOLOG FLEXPEN-LOW RESISTANCE 1 UNITS SC (13:07)
--- NOTE | 2024-04-02 13:47 | W.PN.UPDATE ---
Update Note
Progress Note Update
I saw and evaluated the patient. I reviewed the resident�s note and agree with findings and plan as documented in the resident�s note.
Patient is an 88y M with PMH significant for dementia, liver transplant and recent COVID-19 infection who returns to ED for evaluation of weakness, confusion and decreased appetite.
BRIT - Improved
-Possible prerenal in nature
-Paxlovid can also increase tacrolimus level, level check sent and pending
-Got IVF, hold for now
-continue monitoring cr
Generalized Weakness
- Likely secondary to the above + recent COVID-19 illness.
- PT / OT evaluated and recommended snf vs home, family prefers home
History of Cirrhosis s/p Liver Transplant
History of Hepatitis B
- Stable. Continue tacrolimus.
- Safe to resume tenofovir as well.
DM-II
- Patient not on any medications at this time.
- Follow glucose and cover with SSI as needed.
- Update A1C - pending today
History of Prostate Cancer s/p XRT
- Stable. Tamsulosin on hold for recent Paxlovid course.
- Bladder scan protocol.
Senile Dementia
- Acute confusion at home possible with post-covid changes.
- Risk for acute delirium / agitation during hospital stay.
- Follow for any changes.
DVT Prophylaxis: Subcu Heparin
Code Status: Full
Discussed with patient son over the phone
[2024-04-02 15:59] VITALS: BP 142/68
[2024-04-02 17:16] LABS: Glucose - Point of Care 140 mg/dl (70-99)
[2024-04-02] MEDS: NOVOLOG FLEXPEN-LOW RESISTANCE SC (17:28)
[2024-04-02] MEDS: ARICEPT 10 MG PO (19:30)
[2024-04-02 22:01] LABS: Glucose - Point of Care 153 mg/dl (70-99)
[2024-04-02 23:00] VITALS: BP 153/81
[2024-04-03 05:32] LABS: % Basophils 0.3 % (0-2); % Eosinophils 1.6 % (0-6); % Immature Granulocytes 3.5 % (0-0.5); % Lymphocytes 17.3 % (20.5-51.1); % Monocytes 9.2 % (1.7-9.3); % Neutrophils 68.1 % (42.2-75.2); Absolute Eosinophils 0.1 10^3/uL (0-0.7); Absolute Immature Granulocytes 0.1 10^3/uL (0-0.05); Absolute Lymphocytes 0.6 10^3/uL (1.2-3.4); Absolute Monocytes 0.3 10^3/uL (0.1-0.6); Absolute Neutrophils 2.5 10^3/uL (1.4-6.5); Hematocrit 31.4 % (39.0-52.0); Hemoglobin 11.3 g/dL (13.0-18.0); Mean Corpuscular Hgb 30.8 pg (27.0-31.0); Mean Corpuscular Volume 85.6 fL (80.0-94.0); Mean Platelet Volume 9.1 fL (7.4-10.4); Nucleated Red Blood Cells % 0 % (-); Platelet Count 190 10^3/uL (130-400); Red Blood Cell Count 3.67 10^6/uL (4.70-6.10); Red Cell Dist. Width 12.3 % (11.5-14.5); White Blood Cell Count 3.7 10^3/uL (4.8-10.8)
[2024-04-03 05:56] LABS: ALT (SGPT) 22 U/L (0-50); AST (SGOT) 20 U/L (17-59); Albumin 3.2 g/dl (3.5-5.0); Alkaline Phosphatase 80 U/L (38-126); Blood Urea Nitrogen 19 mg/dl (9-20); Calcium 8.6 mg/dl (8.4-10.2); Carbon Dioxide 27 mmol/L (22-30); Chloride 105 mmol/L (98-107); Estimated Creatinine Clearance 33 ml/min; Glucose 153 mg/dl (70-99); Magnesium 1.4 mg/dl (1.6-2.3); Potassium 3.6 mmol/L (3.5-5.1); Sodium 141 mmol/L (135-145); Total Bilirubin 0.4 mg/dl (0.2-1.3); Total Protein 5.9 g/dl (6.3-8.2)
[2024-04-03 07:18] VITALS: BP 150/79
--- NOTE | 2024-04-03 07:32 | W.PN.HOSP.TC ---
Addendum entered and electronically signed by Alan Howe MD 04/03/24 17:22:
I personally performed a history and physical exam of the patient and discussed management with the resident. I reviewed the resident's note and agree with the documented findings and plan of care HPI/CC except changes in my documentation.
88-year-old male admitted with mental status change
CVS: S1-S2 normal
Chest: CTA B/L
Abdomen: Soft, NT / Bowel sounds present
Extremities: No edema, normal pulses
PURCHASING ADMINISTRATOR: Non focal exam
# Acute kidney injury
Unclear if tacrolimus toxicity from recent Paxlovid use. Tacrolimus level pending
Could be post-COVID confusion also or poor oral intake or diarrhea
Creatinine back to baseline
Hold further IV fluids
# Diarrhea- Check Stool Studies
# Recent COVID-19 infection status post Paxlovid
# New diagnosis diabetes mellitus- Hemoglobin A1c 8.7 . will start Prandin.
# Hypomagnesemia-replace magnesium
# Status post liver transplant-on tacrolimus/Vemlidy-LFTs are stable, restart Vemlidy
# Dementia-continue Aricept
# History of prostate cancer treated with radiation therapy-Continue Flomax
# Depression-continue Lexapro
# Ambulatory dysfunction-PT OT. Family requesting rehab
# CODE STATUS-full code
# DVT prophylaxis-subcutaneous heparin
Used language line nurse charge rn and also added patient's son and spoke to him from the room.
Discussed with case management
Original Note:
Today's Communication/Plan
-
Discuss with briefcase sewer about bed availability at a SNF
stool studies
consult gastroenterology for diarrhea
restart tenofovir
add ripaglinide for blood sugar control
plan discharge
update the family
Assessment / Plan
Assessment / Plan
Impression
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
presented with decreased appetite and increased confusion.Patient is on tacrolimus for his liver transplant. Paxlovid can increase levels of tacrolimus causing acute kidney injury
Assessment
#1 acute kidney injury secondary to tacrolimus/Vemlidy?
#2. Newly diagnosed diabetes mellitus
#3. Senile dementia
#4. Liver transplant
#6. Prostate cancer
Plan
1. Acute kidney injury secondary to tacrolimus/Vemlidy?
Patient has been taking immunosuppressants tacrolimus and vemlidy post liver transplant
He recently took Paxlovid for COVID treatment, Paxlovid can increase tacrolimus levels that can cause acute kidney injury
Presented with increased confusion and decreased appetite
Tenofovir and paxlovid held and iv fluids given
Check tacrolimus level in blood
Serum creatinine improving
Hold IV fluids
Monitor RFT's
Manage accordingly
2. Newly diagnosed diabetes mellitus?
Patient has been having increased blood sugar levels since admission on March 31, 2024
No past medical history of diabetes available
HbA1c 8.7
Observe glucose levels
Give insulin according to sliding scale
Metformin 500mg twice daily
#3. Senile dementia
Continue donepezil
Acute confusion episode in the emergency on March 31, 2024 that could be secondary to COVID that is post-COVID encephalopathy
#4. Liver transplant secondary to liver cirrhosis
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
Patient currently is on immunosuppressants including tacrolimus and tenofovir
Once patient's acute kidney injury resolves tenofovir can also be continued
#6. Prostate cancer
treated with radiation therapy
Takes tamsulosin which is currently on hold due to Paxlovid
Bladder scan pending
Can continue tamsulosin once acute kidney injury resolves
Case management consult appreciated
No SNF utilization history; Home Health services with [facility] the past
Will need ambulance transportation
Patient has dementia; ambulated 3-4 steps with RW and assist of 1; PT recommended SNF vs. Home PT; family unable to care for patient in the home and agreeable to SNF; options for facilities identified; preferences are [facility], [facility] and
[facility]; referrals sent via [facility]
CODE STATUS
Full code
DVT prophylaxis
Heparin
Anticipated Discharge: 24 - 48 hours
Subjective/Interval History
-
Date of Service: April 03, 2024
Patient says he feels well and does not feel any pain . one diarrhea episode
Objective Data
-
Labs:
Laboratory Results
04/03/24
05:05
WBC 3.7 L
Hgb 11.3 L
Hct 31.4 L
Plt Count 190
Sodium 141
Potassium 3.6
Chloride 105
Carbon Dioxide 27
BUN 19
Creatinine 1.3
Glucose 153 H
Calcium 8.6
Total Bilirubin 0.4
AST 20
ALT 22
Alkaline Phosphatase 80
Vital Signs:
Vital Signs
Temp Pulse Resp BP Pulse Ox
98.1 F 70 17 150/79 96
04/03/24 07:18 04/03/24 07:18 04/03/24 07:18 04/03/24 07:18 04/03/24 07:18
I&O
04/02/24 04/03/24 04/04/24
06:59 06:59 06:59
Intake Total 1530 / 1530 1080 / 1080
Balance 1530 / 1530 1080 / 1080
Review of Systems
-
All other systems: Reviewed and negative
Physical Exam
-
General: Well Developed, Well Nourished and Conversant
HEENT: Normocephalic and Atraumatic
Respiratory: Clear to Auscultation
Cardiac: Regular Rhythm and S1/S2
GI: Soft, Nontender and Normal Bowel Sounds
Genito-urinary: No Costovertebral Tender
Musculoskeletal: No Clubbing, No Cyanosis and No Edema
Skin: Warm
Neuro: Awake, Alert and Oriented
Hematologic / Lymphatic: No Lymphadenopathy
Psych: Calm
[2024-04-03 07:46] LABS: Glucose - Point of Care 153 mg/dl (70-99)
[2024-04-03 09:05] VITALS: BP 139/83; PULSE 67; O2SAT 98
[2024-04-03] MEDS: HEPARIN 5000 UNITS SC ×2 (09:17→19:59)
[2024-04-03] MEDS: NOVOLOG FLEXPEN-LOW RESISTANCE 1 UNITS SC ×2 (09:17→18:02)
[2024-04-03] MEDS: LEXAPRO 5 MG PO (09:18)
[2024-04-03] MEDS: PROGRAF 1 MG PO (09:18)
[2024-04-03 12:08] LABS: Glucose - Point of Care 148 mg/dl (70-99)
[2024-04-03] MEDS: NOVOLOG FLEXPEN-LOW RESISTANCE SC (12:24)
[2024-04-03] MEDS: MAGNESIUM SULFATE 50 IV (12:59)
[2024-04-03 15:18] VITALS: BP 144/74
[2024-04-03 15:52] LABS: Ammonia 9 umol/L (9-30)
--- NOTE | 2024-04-03 16:11 | CON.GI ---
Addendum entered and electronically signed by Lesli Barbour DO 04/03/24 17:38:
Patient seen and examined independently of MARY. I agree with her note with my additions below
Patient is an 88-year-old male with history of hep B cirrhosis on tenofovir followed at [facility] with OLT 20 years ago on chronic immunosuppression with tacrolimus. Also recent COVID infection status post Paxlovid who came to the emergency room for
confusion and weakness on 04/01/2024 patient had some mild acute kidney injury with a creatinine of 1.6 that improved to 1.3 with IV fluids. His glucose was 290. Normal liver enzymes. He has chronic loose stools and takes loperamide once daily.
The loperamide was stopped prior to the last admission. He also had increased diarrhea with the Paxlovid which is common.
Currently, he is feeling well. He has no complaints and was walking the halls.
-Restart immunosuppression
-Restart tenofovir
-Restart his home 1 Imodium daily which he has been on chronically
-Renal function improving which likely caused some confusion especially in an 88-year-old
-GI will sign off. Please call if we can help with anything
Original Note:
Consultation
-
Date/Time Consultation Requested: 04/03/24 1500
Date/Time Consultation Performed: 04/03/24 1600
Requesting Provider: shanae Hogue MD
Performing Provider: MARY Baez, Lesli Barbour DO
Reason for Consultation: BRIT. confusion
Medical History
Chief Complaint / HPI
History of Present Illness:
Pt is a 88yo with hx hep B cirrhosis (on Vemidy) follow at [facility] with liver transplant 20 years with chronic immunosuppression, NIDDM per family slow increased FBS with PCP follow, prostate CA with prior XRT, dementia, recent covid infection s/p
paxlovid presents to ER for confusion and weakness. On admission noted with ammonia 9, creat 1.6 with improvement to 1.3, glucose 290, and normal LFT's.
In review with family pt with recent covid. He initially did well on return home but then noted with increased weakness with difficult walking last Wednesday. He does admits to some looser stool but very mild and per family had been on Loperamide
that was stopped on admission. He otherwise denies dysphagia, GERD, abdominal pain, constipation or rectal bleeding.
Past Medical History
Past Medical History: Cancer (prostate CA s/p XRT), NIDDM, Psychiatric (dementia ) and Other (cirrhosis, hep B, recent covid infection)
Social History
Tobacco: Non-Smoker
Alcohol: Occasional
Drug: None
Living: With Family
Employment: Retired
Family History
Family History: Other (no family hx hep B, no family hx colon CA or polyps)
Allergies / Home Medications
Allergy/AdvReac Type Severity Reaction Status Date / Time
No Known Allergies Allergy Verified 11/30/22 22:55
�Medication �Instructions �Recorded
donepezil 10 mg tablet 10 mg PO QPM Neurological Condition 11/26/22
tacrolimus 1 mg capsule, 1 mg PO DAILY Autoimmune Disorder 11/26/22
immediate-release
tamsulosin 0.4 mg capsule 0.8 mg PO QPM Urinary Issue 11/26/22
tenofovir alafenamide 25 mg tablet 25 mg PO DAILY Infection 11/26/22
(Vemlidy)
escitalopram oxalate 5 mg tablet 5 mg PO DAILY Mental Health/Anxiety 06/24/23
fexofenadine 180 mg tablet 180 mg PO QPM Allergies 03/24/24
loperamide 2 mg tablet 2 mg PO DAILY diarrhea 03/24/24
(Anti-Diarrheal (loperamide))
Review of Systems
-
History Source: Patient
Constitutional: Reports Fatigue
EENT: Reports No Symptoms
Respiratory: Reports No Symptoms
Cardiac: Reports No Symptoms
Abdomen/GI: Reports Diarrhea (mild loose stool)
: Reports No Symptoms
Musculoskeletal: Reports No Symptoms
Skin: Reports No Symptoms
Neurological: Reports Other (forgetfulness )
Endocrine: Reports No Symptoms
Hematologic/Lymphatic: Reports No Symptoms
Vital Signs
Temp Pulse Resp BP Pulse Ox
98.2 F 72 18 144/74 96
04/03/24 15:18 04/03/24 15:18 04/03/24 15:18 04/03/24 15:18 04/03/24 15:18
Physical Exam
Exam
General: Well Developed, Well Nourished and No Apparent Distress
HEENT: Normocephalic and Anicteric
Respiratory: Clear
Cardiac: Regular Rhythm
GI: Soft, Non Tender and Non Distended
Musculoskeletal: No Clubbing and No Cyanosis
Skin: Warm and Dry
Neuro: Awake, Alert and Other (forget at time per retail bakery manager)
Psych: Calm
Results
WBC 3.7 10^3/uL (4.8-10.8) L 04/03/24 05:05
Hgb 11.3 g/dL (13.0-18.0) L 04/03/24 05:05
Hct 31.4 % (39.0-52.0) L 04/03/24 05:05
MCV 85.6 fL (80.0-94.0) 04/03/24 05:05
Plt Count 190 10^3/uL (130-400) 04/03/24 05:05
Absolute Neuts (auto) 2.5 10^3/uL (1.4-6.5) 04/03/24 05:05
Sodium 141 mmol/L (135-145) 04/03/24 05:05
Potassium 3.6 mmol/L (3.5-5.1) 04/03/24 05:05
Chloride 105 mmol/L (98-107) 04/03/24 05:05
Carbon Dioxide 27 mmol/L (22-30) 04/03/24 05:05
BUN 19 mg/dl (9-20) 04/03/24 05:05
Creatinine 1.3 mg/dL (0.7-1.3) 04/03/24 05:05
Calcium 8.6 mg/dl (8.4-10.2) 04/03/24 05:05
Total Bilirubin 0.4 mg/dl (0.2-1.3) 04/03/24 05:05
AST 20 U/L (17-59) 04/03/24 05:05
ALT 22 U/L (0-50) 04/03/24 05:05
Alkaline Phosphatase 80 U/L (38-126) 04/03/24 05:05
Diagnostic Image Results:
11/2022 US abdomen
Limited exam. Patient was confused and unable to fully cooperate with the exam.
Hepatomegaly, increased echogenicity consistent with fatty change.
Portal and hepatic vessels were visualized and patent. Hepatic artery resistivity index 0.76. Patent.
Prior GI Procedures:
EGD: ? in past
Colonoscopy: in past did not recall details
Assessment / Plan
-
Pt is a 88yo with hx hep B cirrhosis (on Vemidy) follow at [facility] with liver transplant 20 years with chronic immunosuppression, NIDDM per family slow increased FBS with PCP follow, prostate CA with prior XRT, dementia, recent covid infection s/p
paxlovid presents to ER for confusion and weakness. On admission noted with ammonia 9, creat 1.6 with improvement to 1.3, glucose 290, and normal LFT's. He was noted with some looser stool but not diarrhea per pt and staff.
-weakness on admission now improving
-BRIT
-looser stool - chronic per family on daily Loperamide
-hx liver transplant with chronic immunosuppression at [facility] 20 + years ago follows with OP hepatology
-hep B on chronic Vemlidy
-NIDDM- per family grandual onset followed by PCP
-prostate CA
-dementia
Plan:
In review with family pt doing better today ? residual covid infection for weakness vs other
BRIT now improved
pt family report some noted pre DM followed by PCP
would resume Vemlidy-- reviewed with nursing staff for pharmacy verification
cont tacrolimus -- level pending
pt with hx chronic loose stool controlled with Loperamide daily -- will restart today
reviewed with nursing to monitor for any recurrent loose stool if noted check stool studies
appreciate social work input as family asking about discharge and SNF
will need follow up with PCP for DM, and anabaptism for terminal press operator liver follow up
all questions answered call back if we can be of assistance
use of language line for assist with language barrier
-
-
Thank you for consultation and allowing me to participate in the patient's care. Please call the global transportation manager GI physician during the after hours with any questions or concerns.
[2024-04-03 16:49] LABS: Glucose - Point of Care 198 mg/dl (70-99)
[2024-04-03] MEDS: IMODIUM 2 MG PO (18:02)
[2024-04-03] MEDS: PRANDIN 0.5 MG PO (18:03)
[2024-04-03] MEDS: ARICEPT 10 MG PO (18:03)
[2024-04-03] MEDS: NON-FORMULARY ITEM 25 MG PO (19:59)
[2024-04-03 21:27] LABS: Glucose - Point of Care 210 mg/dl (70-99)
[2024-04-03 23:40] VITALS: BP 149/83
[2024-04-04 06:22] LABS: % Basophils 0.5 % (0-2); % Eosinophils 2.4 % (0-6); % Immature Granulocytes 3.4 % (0-0.5); % Lymphocytes 14.5 % (20.5-51.1); % Monocytes 8.7 % (1.7-9.3); % Neutrophils 70.5 % (42.2-75.2); Absolute Eosinophils 0.1 10^3/uL (0-0.7); Absolute Immature Granulocytes 0.1 10^3/uL (0-0.05); Absolute Lymphocytes 0.6 10^3/uL (1.2-3.4); Absolute Monocytes 0.4 10^3/uL (0.1-0.6); Absolute Neutrophils 2.9 10^3/uL (1.4-6.5); Hematocrit 31.6 % (39.0-52.0); Hemoglobin 11.6 g/dL (13.0-18.0); Mean Corp Hgb Conc. 36.7 g/dL (33.0-37.0); Mean Corpuscular Hgb 29.9 pg (27.0-31.0); Mean Corpuscular Volume 81.4 fL (80.0-94.0); Mean Platelet Volume 8.9 fL (7.4-10.4); Nucleated Red Blood Cells % 0 % (-); Platelet Count 207 10^3/uL (130-400); Red Blood Cell Count 3.88 10^6/uL (4.70-6.10); Red Cell Dist. Width 12.3 % (11.5-14.5); White Blood Cell Count 4.1 10^3/uL (4.8-10.8)
[2024-04-04 06:50] LABS: Blood Urea Nitrogen 26 mg/dl (9-20); Calcium 8.6 mg/dl (8.4-10.2); Carbon Dioxide 28 mmol/L (22-30); Chloride 101 mmol/L (98-107); Estimated Creatinine Clearance 33 ml/min; Glucose 159 mg/dl (70-99); Magnesium 1.8 mg/dl (1.6-2.3); Potassium 3.9 mmol/L (3.5-5.1); Sodium 137 mmol/L (135-145)
--- NOTE | 2024-04-04 07:15 | W.DCSUMMARY ---
Documented by User: Leyla Callahan MD, Resident 04/05/24 09:03
Discharge Summary
Discharge Data
Date of Admission: 04/01/24
Date of Discharge: 04/05/24
-
Pending Results: No
Hospital Course
Discharging Physician : Dr Alan Howe Dr, Leyla Callahan
Disposition : senior care facility
Primary care physician : Dr. Bunny Landeros
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
Hospital Course :
Patient recently discharged from [facility] [place] after being managed for COVID-19 with Paxlovid, on 26 March 2024. He was given a 5-day course of Paxlovid for home.
Patient presented to the emergency on April 01, 2024 with acute onset of confusion, weakness and decreased appetite. Patient was unable to provide his history but he was able to communicate any active symptoms. He reported no headache, chest
pain, abdominal pain, vomiting,, diarrhea shortness of breath or any other symptoms.
He was unaware of his arrival in the hospital, when and how he was brought to the hospital. His examination was unremarkable.
Problem#1.BRIT
He had an acute kidney injury most likely secondary to Paxlovid increasing tacrolimus levels in blood . Paxlovid and tenofovir were discontinued, fluids were given and patient gradually improved his creatinine levels.
Problem#2 Most likely Post Covid encephalopathy
Patient has intact short-term memory now so the most likely post COVID encephalopathy has resolved ,as metabolic causes were ruled out based on hospital workup.started on tenofovir.
Problem#3Diabetes mellitus
Patient had consistently high blood sugar levels during his hospital stay but he takes no medications for diabetes. His HbA1c was 8.7 and was given insulin on sliding scale.Patient started on low dose repaglinide to help control blood sugar levels
at home.
Dementia and home care
The long-term memory loss is due to dementia for which he takes donepezil.
He lives with his son, [id number] and grandchild in a 3 story house. PT OT evaluations were done, who suggested home health services with a visiting nurse. Family confirmed that the patient is back to baseline health status and they are ok
with a visiting nurse.
The patient was evaluated for an episode of diarrhea by gastroenterology. As per recommendations of gastroenterology patient can take daily loperamide for chronic diarrhea and he can be re
Important imaging findings :
CT scan head findings:
Mild to moderate age-related parenchymal atrophy. No intra- or extra-axial mass, hemorrhage, or fluid collection. Mild subcortical, deep, and periventricular white matter low-attenuation, compatible with changes of chronic small vessel ischemic
disease. Mild mucosal thickening of the paranasal sinuses. The mastoid air cells are clear.No acute intracranial abnormality.
CHEST X-RAY IMPRESSION:
Subtle increased interstitial markings within the perihilar region of both lungs, linear densities within the left lower lung. This is likely residual scarring from previous pneumonia. Improvement in inflation of both lungs since most recent
radiograph
Discharge Plan
-
Patient Disposition: Home (Routine Discharge)
Discharge Diagnosis/Procedures: Post COVID 19 encephalopathy, BRIT from volume depletion and drug interaction paxlovid with tacrolimus, Diabetes Mellitus
Condition: Fair
Diet: Diabetic, Carb Controlled
Activity: As tolerated and With Walker
Driving Restrictions: As prior to admission
Other Services: VN and PT
Activity Restrictions/Additional Instructions:
Results of tacrolimus level pending at discharge. Follow-up with your primary physician to obtain it from [facility].
Referrals:
Bunny Landeros MD [Family Provider] - in one week
Prescriptions:
New
amlodipine 5 mg Tablet
5 mg PO DAILY Qty: 30 0RF
repaglinide 0.5 mg Tablet
0.5 mg PO MEALS Qty: 90 0RF
Continued
donepezil 10 mg tablet
10 mg PO QPM
tamsulosin 0.4 mg capsule
0.8 mg PO QPM
tacrolimus 1 mg Capsule
1 mg PO DAILY
escitalopram oxalate 5 mg tablet
5 mg PO DAILY
loperamide [Anti-Diarrheal (loperamide)] 2 mg Tablet
2 mg PO DAILY
fexofenadine 180 mg Tablet
180 mg PO QPM
Vemlidy 25 mg tablet
25 mg PO DAILY Qty: 0 0RF
Discontinued
Paxlovid 150-100 mg tablets,dose pack
See Rx Instructions .ROUTE .COMPLEX Qty: 20 0RF
Rx Instructions:
orally per package directions. Take for additional 6 dose.
Discharge Orders:
Discharge Patient (As Directed); Ordered 04/04/24
Ordered By: Leyla Callahan
Discharge Date and Time
Discharge Date/Time: 04/04/24 16:49
Print Language: NEPALI

Documented by User: Alan Howe MD 04/06/24 16:45
Discharge Summary
Discharge Data
Date of Admission: 04/01/24
Date of Discharge: 04/06/24
Discharge Plan
-
Patient Disposition: Home (Routine Discharge)
Discharge Diagnosis/Procedures: Post COVID 19 encephalopathy, BRIT from volume depletion and drug interaction paxlovid with tacrolimus, Diabetes Mellitus
Condition: Fair
Diet: Diabetic, Carb Controlled
Activity: As tolerated and With Walker
Driving Restrictions: As prior to admission
Other Services: VN and PT
Activity Restrictions/Additional Instructions:
Results of tacrolimus level pending at discharge. Follow-up with your primary physician to obtain it from [facility].
Referrals:
Bunny Landeros MD [Family Provider] - in one week
Prescriptions:
New
amlodipine 5 mg Tablet
5 mg PO DAILY Qty: 30 0RF
repaglinide 0.5 mg Tablet
0.5 mg PO MEALS Qty: 90 0RF
Continued
donepezil 10 mg tablet
10 mg PO QPM
tamsulosin 0.4 mg capsule
0.8 mg PO QPM
tacrolimus 1 mg Capsule
1 mg PO DAILY
escitalopram oxalate 5 mg tablet
5 mg PO DAILY
loperamide [Anti-Diarrheal (loperamide)] 2 mg Tablet
2 mg PO DAILY
fexofenadine 180 mg Tablet
180 mg PO QPM
Vemlidy 25 mg tablet
25 mg PO DAILY Qty: 0 0RF
Discontinued
Paxlovid 150-100 mg tablets,dose pack
See Rx Instructions .ROUTE .COMPLEX Qty: 20 0RF
Rx Instructions:
orally per package directions. Take for additional 6 dose.
Discharge Orders:
Discharge Patient (As Directed); Ordered 04/04/24
Ordered By: Leyla Callahan
Discharge Date and Time
Discharge Date/Time: 04/04/24 16:49
Print Language: NEPALI
[2024-04-04 07:32] VITALS: BP 151/87
[2024-04-04 08:22] LABS: Glucose - Point of Care 150 mg/dl (70-99)
[2024-04-04] MEDS: IMODIUM 2 MG PO (08:55)
[2024-04-04] MEDS: HEPARIN 5000 UNITS SC (08:55)
[2024-04-04] MEDS: PRANDIN 0.5 MG PO ×2 (08:55→13:03)
[2024-04-04] MEDS: LEXAPRO 5 MG PO (08:56)
[2024-04-04] MEDS: NON-FORMULARY ITEM 25 MG PO (08:56)
[2024-04-04] MEDS: PROGRAF 1 MG PO (08:56)
[2024-04-04] MEDS: NOVOLOG FLEXPEN-LOW RESISTANCE 1 UNITS SC (08:56)
[2024-04-04 10:01] VITALS: BMI 22.9
[2024-04-04] MEDS: NORVASC 5 MG PO (10:34)
[2024-04-04 10:38] VITALS: BP 145/73; PULSE 65; O2SAT 97
[2024-04-04 12:09] LABS: Glucose - Point of Care 234 mg/dl (70-99)
[2024-04-04] MEDS: NOVOLOG FLEXPEN-LOW RESISTANCE 2 UNITS SC (13:03)
--- NOTE | 2024-04-04 14:41 | W.PN.UPDATE ---
Update Note
Progress Note Update
I personally performed a history and physical exam of the patient and discussed management with the resident. I reviewed the resident's note and agree with the documented findings and plan of care HPI/CC except changes in my documentation.
88-year-old male admitted with mental status change. Patient at baseline
CVS: S1-S2 normal
Chest: CTA B/L
Abdomen: Soft, NT / Bowel sounds present
Extremities: No edema,
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
# Acute kidney injury
Unclear if tacrolimus toxicity from recent Paxlovid use. Tacrolimus level pending
Could be post-COVID confusion also or poor oral intake or diarrhea
Creatinine back to baseline
# Diarrhea-is chronic and no studies needed per GI. Patient was started on loperamide and has not had any further diarrhea.
# Recent COVID-19 infection status post Paxlovid
# New diagnosis diabetes mellitus- Hemoglobin A1c 8.7 . Prandin started.
# Hypomagnesemia-replaced magnesium
# Status post liver transplant-on tacrolimus/Vemlidy-LFTs are stable, continue Vemlidy
# Dementia-continue Aricept
# History of prostate cancer treated with radiation therapy-Continue Flomax
# Depression-continue Lexapro
# Ambulatory dysfunction-PT OT. Home PT
# CODE STATUS-full code
# DVT prophylaxis-subcutaneous heparin
Talked to son in detail yesterday
Discussed with case management
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 Patient states he is feeling good. He is looking forward to going home.
PT cleared him for home.
Discharge coordination time more than 32 minutes
--- NOTE | 2024-04-04 15:04 | W.PN.HOSP.TC ---
Today's Communication/Plan
-
Plan discharge of the patient, after discussing the home health services with the son, and PT/OT
Assessment / Plan
Assessment / Plan
Impression
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
presented with decreased appetite and increased confusion.Patient is on tacrolimus for his liver transplant. Paxlovid can increase levels of tacrolimus causing acute kidney injury
An episode of diarrhea yesterday
Assessment
#1 acute kidney injury secondary to tacrolimus/Vemlidy?
#2. Newly diagnosed diabetes mellitus
#3. Senile dementia
#4. Liver transplant
#6. Prostate cancer
Plan
1. Acute kidney injury secondary to tacrolimus/Vemlidy?
Patient has been taking immunosuppressants tacrolimus and vemlidy post liver transplant
He recently took Paxlovid for COVID treatment, Paxlovid can increase tacrolimus levels that can cause acute kidney injury
Vemlidy held due to potential renal damage, patient had already completed the course of Paxlovid.
For the diarrhea, gastroenterology advised to continue 1 mg loperamide on daily basis. They restarted tenofovir and signed off after optimizing the patient.
Serum creatinine improving
Patient eating regular diet and feels well to go home
2. Newly diagnosed diabetes mellitus?
Patient has been having increased blood sugar levels since admission on March 31, 2024
No past medical history of diabetes available
HbA1c 8.7
Repaglinide 5 mg daily and monitor blood glucose levels
#3. Senile dementia
Continue donepezil
Acute confusion episode in the emergency on March 31, 2024 that could be secondary to COVID that is post-COVID encephalopathy
#4. Liver transplant secondary to liver cirrhosis
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
Patient is most likely immunocompromised as he is on immunosuppressants including tacrolimus and tenofovir
Tenofovir restarted after consultation with gastroenterology for diarrhea episode
#6. Prostate cancer
treated with radiation therapy
Takes tamsulosin which is currently on hold due to Paxlovid
Bladder scan pending
Can continue tamsulosin once acute kidney injury resolves
Case management consult appreciated
After discussion with the physical therapist and occupational therapist, the consensus was made that the patient requires home health services and is not a candidate for rehab. I talked to the son of Mr. Sanchez and explained the scenario who was okay
with the home health services and a visiting nurse.
CODE STATUS
Full code
DVT prophylaxis
Heparin
Anticipated Discharge: Today
Subjective/Interval History
-
Date of Service: April 04, 2024
Patient feels well and has no active issues at the moment
Objective Data
-
Labs:
Laboratory Results
04/04/24
05:43
WBC 4.1 L
Hgb 11.6 L
Hct 31.6 L
Plt Count 207
Sodium 137
Potassium 3.9
Chloride 101
Carbon Dioxide 28
BUN 26 H
Creatinine 1.3
Glucose 159 H
Calcium 8.6
Vital Signs:
Vital Signs
Temp Pulse Resp BP Pulse Ox
97.8 F 66 16 145/73 96
04/04/24 07:32 04/04/24 10:34 04/04/24 07:32 04/04/24 10:34 04/04/24 07:32
I&O
04/03/24 04/04/24 04/05/24
06:59 06:59 06:59
Intake Total 1080 / 1080 600 / 600
Balance 1080 / 1080 600 / 600
Review of Systems
-
All other systems: Reviewed and negative
Physical Exam
-
General: Well Developed, Well Nourished, No Apparent Distress and Comfortable
HEENT: Normocephalic and Atraumatic
Respiratory: Clear to Auscultation
Cardiac: Regular Rhythm and S1/S2
GI: Soft, Nontender and Normal Bowel Sounds
Genito-urinary: No Costovertebral Tender
Musculoskeletal: No Clubbing, No Cyanosis and No Edema
Skin: Warm
Neuro: Awake, Alert and Oriented
Hematologic / Lymphatic: No Lymphadenopathy
Psych: Calm
--- NOTE | 2024-04-04 15:10 | CM ---
MD indicated pt ready for dc.
Spoke with son Anjel this am and afternoon.
Reviewed latest PT OT evals . PT improved to VN at ga.
Anjel said he was on his way to drive his dad home. Offered home care music therapist list . He said he will call [facility] care givers.
Offered VN he declined VN services.
Reviewed IMM emailed copy to [email or web address].
PLAN Home with son Declined VN
--- NOTE | 2024-04-04 15:58 | PN.DE ---
Diabetes Education
- -
Consulted for Diabetes Education
88 year old male with PMH that includes senile dementia. Pt has hx of T2DM, current A1C of 8.7%, has been started on Repaglinide.
Met with pt at bedside to provide diabetes education- monitor instructions and was unsuccessful. Pt is very confused and noted for hx of Dementia.
He is not an ideal candidate for diabetes education at this time given poor cognitive function.
Pt may not need self glucose monitoring if dispo is SNF.
[2024-04-04 16:00] VITALS: BP 121/73
--- NOTE | 2024-04-05 07:52 | PN.CDI ---
CDI
- -
CDI:
Physician Documentation Request
Admit Date: 04/01/24 06:27
Dear Doctor Sindy,
Clinical Indicators:
Patient presented increased confusion; recent COVID 19, treated with Paxlovid.
04/01 ED report, '...who note that today patient seem very out of it, has been staring into space, less responsive and has not been eating or drinking.'
04/03 GI PN, '-Renal function improving which likely caused some confusion especially in an 88-year-old'
04/04 PN, 'Acute kidney injury Unclear if tacrolimus toxicity from recent Paxlovid use. Tacrolimus level pending
Could be post-COVID confusion also or poor oral intake or diarrhea'
04/04 Discharge Summary, '...acute Post Covid encephalopathy has resolved'
Based on the above, could you clarify in the Progress Notes and Discharge Summary which, if any of the following, is the most likely etiology of the confusion/altered mental status.
Acute Metabolic Encephalopathy due to BRIT
Toxic Metabolic Encephalopathy
Encephalopathy due to recent COVID infection only
Other, please specify
Use of terms such as suspected, likely, concern for, or probable (associated with a specific diagnosis that is being evaluated, monitored, or treated as if it exists) are acceptable and can be coded in the inpatient setting, when documented at the
time of discharge.
Thank you,
Anushka Roth RN BSN
CDI Specialist
available via tiger text
Please use your independent medical judgment in providing your response.
--- NOTE | 2024-04-05 08:07 | PN.CDI ---
CDI
- -
CDI:
Physician Documentation Request
Admit Date: 04/01/24 06:27
Dear Doctor Sindy,
Clinical Indicators:
Patient presented increased confusion.
PMH includes liver transplant.
04/04 PN, 'Patient currently is on immunosuppressants including tacrolimus and tenofovir'
Based on the above, could you clarify in the progress notes, the appropriate diagnosis, if significant, that supports the above abnormalities and additional evaluation, monitoring and/or treatment rendered:
Immunocompromised is a valid diagnosis
Immunocompromised is not a valid diagnosis
Other, please specify
Use of terms such as suspected, likely, concern for, or probable (associated with a specific diagnosis that is being evaluated, monitored, or treated as if it exists) are acceptable and can be coded in the inpatient setting, when documented at the
time of discharge.
Thank you,
Anushka Roth RN BSN
CDI Specialist
available via tiger text
Please use your independent medical judgment in providing your response.
--- NOTE | 2024-04-06 16:40 | W.PN.UPDATE ---
Update Note
Progress Note Update
Patient most likely immunocompromised due to being a transplant patient and using tenofovir and tacrolimus
Patient had a toxic metabolic encephalopathy most likely secondary to BRIT or probably could be a sequela of covid
--- NOTE | 2024-04-06 16:46 | W.PN.UPDATE ---
Update Note
Progress Note Update
Patient had TME likely secondary to BRIT
Patient is immunocompromised secondary to his medicines.
--- NOTE | 2024-04-07 16:05 | W.PN.UPDATE ---
Update Note
Progress Note Update
Tacrolimus level came back at on 113.
I called [facility]. They have not seen him since 2021. Spoke to Dr. Nava who is on-call.
She stated that they will contact him to get the labs repeated and if he has symptoms we will advise him to come to the ER.
I confirmed that I do not need to contact him .
== END 2024-04-04 16:49 | disposition home or self-care (01) | DRG 682 ==
LOC: 3 WEST ACU 06:27
PROVIDERS: Emergency Medicine; Hospitalist; ADMITTING PHYSICIAN Hospitalist; ATTENDING PHYSICIAN Hospitalist; CONSULT PHYSICIAN Internal Medicine; EMERGENCY PHYSICIAN Student in an Organized Health Care Education/Training Program; FAMILY PHYSICIAN Family Medicine
DX: N17.9 Acute kidney failure, unspecified (principal); G92.8 Other toxic encephalopathy; Z94.4 Liver transplant status; Z11.52 Encounter for screening for COVID-19; F03.90 Unspecified dementia, unspecified severity, without behavioral disturbance, psychotic disturbance, mood disturbance, and anxiety; C61 Malignant neoplasm of prostate; E11.65 Type 2 diabetes mellitus with hyperglycemia; U09.9 Post COVID-19 condition, unspecified
CPT/HCPCS: 51701; 70450; 71046; 80048; 80053; 80197; 81003; 81015; 82140; 82248; 82962; 83036; 83735; 85025; 85027; 87086; 87811; 96360; 97162; 97166; 97530; 97535; 99285

== ENCOUNTER 2024-04-09 02:44 | Inpatient (IN) | payer OTHER, SELFPAY ==
--- NOTE | 2024-04-08 22:47 | EDRN ---
The patient is unable to answer suicide screening at this time due to language barrier.
[2024-04-08 22:51] VITALS: BP 133/73
[2024-04-08 23:02] VITALS: BP 134/71
[2024-04-08 23:07] VITALS: BMI 20.9
--- NOTE | 2024-04-08 23:29 | ED.GENMED ---
History of Present Illness
General
Chief Complaint: Change in Mental Status
Source: patient and family
Time Seen by Provider: 04/08/24 23:03
History of Present Illness
History of Present Illness:
88-year-old male presents for reevaluation. He was here and discharged from the hospital couple days ago after acute kidney injury and confusion. Prior to the admission he was tested positive for COVID. He took a course of Paxlovid. He has a
history of liver transplant. Lab work was done in the hospital and there was potential that his tacrolimus level was extremely high. The admitting team did call him today to get his blood rechecked which he did earlier today. They noticed that he
is confused. He cannot seem to figure out how to get him dressed which this is quite atypical for him. He does have a history of dementia but is typically very functional. Today they noticed he has been weak and confused. They note new urinary
incontinence.
Past History
Past History
ED Past Medical History: NIDDM, Psychiatric (dementia) and Other (cirrhosis, ?hepatitis)
ED Past Surgical History: Other (liver transplant)
Patient has exhibited threatening behavior?: No
PSI?: No
Social History
Tobacco: Non-smoker
Alcohol: Former
Drug: None
Personal: Single
Living: with family
Employment: Retired
Phy Exam
Physical Exam
Physical Exam:
General: Well-appearing nontoxic male no acute respiratory distress
HEENT: Normocephalic atraumatic
Heart: Regular rate and rhythm no murmurs
Abdomen: Mildly distended soft but tender diffusely
Extremities: No cyanosis
Skin: Warm no rash
Neurologic: Alert oriented to person and place. No drift on exam finger-nose intact
Sepsis
Sepsis Screening
Sepsis Assessment: Sepsis Ruled Out
Sepsis Screen
Sepsis Screen: Sepsis Ruled Out
Date: 04/09/24
Time: 01:36
Course
Orders/Labs/Results
Orders:
Orders
04/08/24 23:25
Urinalysis Reflex To Culture Urgent
Date Specimen was Collected: 04/08/24
Time Specimen was Collected: 23:46
04/08/24 23:26
CR Chest - 2 Views Urgent
Comment:
Reason For Exam: fever
04/08/24 23:38
COVID-19 Antigen Urgent
Source: Nasal Swab
Complete Blood Count/With Diff Urgent
Comprehensive Metabolic Panel Urgent
Influenza A+B Rapid Molecular Urgent
SAMEERA Source: Nasal Swab
Specimen Description:
04/09/24 00:01
CT Abd/pelvis W Iv Cont Urgent
Reason For Exam: abdominal pain
04/09/24 01:33
Cefepime HCl [Maxipime] 1,000 mg IV NOW STA
04/09/24 02:00
*Vancomycin IV Pharmacy to Dose VANCOMYCIN Pharmacy to Dose [VANCOCIN Pharmacy to Dose] 1 each Pharmacy To Prepare [Call Pharmacy To Prepare] 0 ml IV PER PROTOCOL
Abnormal Lab Results
04/08/24 04/09/24
23:38 00:04
RBC 3.76 L 10^6/uL
(4.70-6.10)
Hgb 11.6 L g/dL
(13.0-18.0)
Hct 32.9 L %
(39.0-52.0)
Abs Immat Gran (auto) 0.1 H 10^3/uL
(0-0.05)
Absolute Neuts (auto) 8.0 H 10^3/uL
(1.4-6.5)
Absolute Lymphs (auto) 0.4 L 10^3/uL
(1.2-3.4)
Immature Gran % 0.8 H %
(0-0.5)
Neutrophils % 88.3 H %
(42.2-75.2)
Lymphocytes % 4.6 L %
(20.5-51.1)
Carbon Dioxide 32 H mmol/L
(22-30)
BUN 23 H mg/dl
(9-20)
Glucose 207 H mg/dl
(70-99)
Urine Glucose 2+ A
(Negative)
04/08/24 23:38
04/08/24 23:38
Vital Signs
Initial and Last Documented VS:
Initial Vital Signs
Temp Pulse Resp BP Pulse Ox
100 F 86 24 133/73 93
04/08/24 22:51 04/08/24 22:51 04/08/24 22:51 04/08/24 22:51 04/08/24 22:51
Last Documented Vital Signs
Temp Pulse Resp BP Pulse Ox
99.7 F 85 22 139/76 94
04/09/24 01:00 04/09/24 01:15 04/09/24 01:15 04/09/24 01:00 04/09/24 01:20
MDM/Problems Addressed
Differential Diagnosis Includes:
Confusion weakness. Patient noted to have temperature at triage of 100.0. Question underlying infectious source. Check urine COVID flu labs CT of abdomen.
It is possible the patient's tacrolimus level is high. Question clinical significance currently.
*Critical Care Note
Total Time (30-74mins, 75-104mins- exclusive of procedures): Not Applicable
Update Note
Update Note:
Patient reevaluated. Patient did become hypoxic while here. He went to 88% on room air while awake. He responded to 2 L of nasal oxygen. Chest x-ray suspicious for pneumonia at the base. CT of the abdomen shows no obvious acute finding. COVID
and flu test were negative urinalysis was negative. Given confusion, fever, hypoxia will cover for pneumonia. Vancomycin and cefepime ordered. Will mid to hospital
ED Attending Note
-
Portions of this chart may have been created with voice recognition software.� Occasional wrong word or��sound alike� substitutions may have occurred due to the inherent limitations of voice recognition software.
Discharge Plan
Departure
Patient Disposition: Admit
Date of Disposition: 04/09/24
Time of Disposition: 01:35
Admit to: Telemetry
Presentation/result/management discussed w/ accepting MD/DO: Hospitalist
Discharge Problem:
Altered mental status
Prescriptions:
No Action
donepezil 10 mg tablet
10 mg PO QPM
tamsulosin 0.4 mg capsule
0.8 mg PO QPM
tacrolimus 1 mg Capsule
1 mg PO DAILY
escitalopram oxalate 5 mg tablet
5 mg PO DAILY
loperamide [Anti-Diarrheal (loperamide)] 2 mg Tablet
2 mg PO DAILY
fexofenadine 180 mg Tablet
180 mg PO QPM
amlodipine 5 mg Tablet
5 mg PO DAILY Qty: 30 0RF
repaglinide 0.5 mg Tablet
0.5 mg PO MEALS Qty: 90 0RF
Vemlidy 25 mg tablet
25 mg PO DAILY Qty: 0 0RF
Referrals:
NONE,* [Active] -
Interventions
Interventions:
*Risk Screen - Suicide Last Done: 04/08/24 22:47
*Neglect/Abuse Screening Last Done: 04/08/24 22:51
ED- Fall Risk Assessment Last Done: 04/09/24 00:07
*ED COVID-19 Vaccine History Last Done: 04/09/24 00:10
ED- Pulmonary Assessment Last Done: 04/09/24 00:07
ED- Neurological Assessment Last Done: 04/09/24 00:07
ED- Cardiac Assessment Last Done: 04/09/24 00:07
Discharge Date and Time
Print Language: JAPANESE
[2024-04-08 23:48] LABS: % Basophils 0.2 % (0-2); % Eosinophils 0.7 % (0-6); % Immature Granulocytes 0.8 % (0-0.5); % Lymphocytes 4.6 % (20.5-51.1); % Monocytes 5.4 % (1.7-9.3); % Neutrophils 88.3 % (42.2-75.2); Absolute Eosinophils 0.1 10^3/uL (0-0.7); Absolute Immature Granulocytes 0.1 10^3/uL (0-0.05); Absolute Lymphocytes 0.4 10^3/uL (1.2-3.4); Absolute Monocytes 0.5 10^3/uL (0.1-0.6); Hematocrit 32.9 % (39.0-52.0); Hemoglobin 11.6 g/dL (13.0-18.0); Mean Corp Hgb Conc. 35.3 g/dL (33.0-37.0); Mean Corpuscular Hgb 30.9 pg (27.0-31.0); Mean Corpuscular Volume 87.5 fL (80.0-94.0); Mean Platelet Volume 9.2 fL (7.4-10.4); Nucleated Red Blood Cells % 0 % (-); Platelet Count 205 10^3/uL (130-400); Red Blood Cell Count 3.76 10^6/uL (4.70-6.10); Red Cell Dist. Width 12.5 % (11.5-14.5)
[2024-04-08 23:59] LABS: ALT (SGPT) 25 U/L (0-50); AST (SGOT) 27 U/L (17-59); Albumin 3.9 g/dl (3.5-5.0); Alkaline Phosphatase 87 U/L (38-126); Blood Urea Nitrogen 23 mg/dl (9-20); Carbon Dioxide 32 mmol/L (22-30); Chloride 98 mmol/L (98-107); Estimated Creatinine Clearance 34 ml/min; Glucose 207 mg/dl (70-99); Potassium 4.3 mmol/L (3.5-5.1); Sodium 137 mmol/L (135-145); Total Bilirubin 0.7 mg/dl (0.2-1.3); Total Protein 6.5 g/dl (6.3-8.2)
[2024-04-09] VITALS (10 sets, daily range): BP systolic 116–143; BP diastolic 69–89; BMI 21.4
[2024-04-09 00:04] LABS: COVID-19 Antigen Negative (Negative)
[2024-04-09 00:25] LABS: Urine Albumin Trace (Neg - Trace); Urine Bilirubin Negative (Negative); Urine Character Clear (Clear); Urine Color Yellow; Urine Glucose 2+ (Negative); Urine Ketone Negative (Negative); Urine Leukocyte Negative (Negative); Urine Nitrite Negative (Negative); Urine Occult Blood Negative (Negative); Urine Urobilinogen Negative (Neg - 1+)
--- NOTE | 2024-04-09 02:02 | HPS.HSE ---
Family Physician
-
Family Physician: Bunny Landeros
Chief Complaint
-
Change in mental status and fever
History of Present Illness
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
Patient has a multiple recent hospitalizations. Was initially hospitalized in late February for COVID-19 infection. He had lethargy weakness and did not require oxygen at that time. He was treated on Paxlovid and discharge. Patient then
returned to the ED with weakness dehydration and BRIT. He is tacrolimus level was markedly increased at that time secondary to the Paxlovid. Renal function recovered. Tacrolimus was held. Today's tacrolimus level had come down from over 100 to
2.7.
Family reports that patient has been coughing ever since his COVID-19 infection. He has a nonproductive cough. He is actually improving. They reported that yesterday he did have bilateral ankle edema. He also reported that he has been having
worsening and ambulatory difficulties. He appears to be unsteady on his feet and requires holding onto things to ambulate. He has not returned back to his level of physical activity prior to the COVID infection. Particularly ED noted today he was
confused regarding his usual activities. He was unable to follow directions when told to put on his clothes. He was also shaking. Due to the confusion he was brought to the emergency department. In the ED he was found to be hypoxic to 88% on
room air.
Had a temp of 100, blood pressure was 136/76. On 2 L he was satting 94%. White count was 9 hemoglobin 11.6 and a platelet count of 2 5. His creatinine was 1.3 which is his baseline. Rest of his electrolytes within normal limits. COVID-19 is
negative. Influenza is negative. UA was unremarkable. LFTs are within normal limits. Had a chest x-ray which is equivocal showing no clear infiltrates. Due to complaints of abdominal pain/discomfort the patient also had a CT abd/pelvis showing
some biliary changes probably due to postcholecystectomy, mild dilation of the main pancreatic duct with multiple small cystic lesions within the pancreas. Mild atelectasis at the lung bases.
Medical History
Past Medical History
Past Medical History: Reports Dementia, HTN, NIDDM and Other (s/p Liver Tx )
Additional Past Medical History:
BPH
Past Surgical History: Reports Other (Liver Tx)
Social History
Tobacco: Non-smoker
Alcohol: None
Drug: None
Personal:
Living: With Family
Employment: Retired
Family History
Family History: Not pertinent
Allergies / Home Medications
Allergies reflects when Allergies were last updated in [facility].
Home Medications with original date entered in [facility]
Allergy/Medication List:
Allergies
Allergy/AdvReac Type Severity Reaction Status Date / Time
No Known Allergies Allergy Verified 04/08/24 22:55
Home Medications
donepezil 10 mg tablet 10 mg PO QPM Neurological Condition 11/26/22
tacrolimus 1 mg capsule, immediate-release 1 mg PO DAILY Autoimmune Disorder 11/26/22
tamsulosin 0.4 mg capsule 0.8 mg PO QPM Urinary Issue 11/26/22
escitalopram oxalate 5 mg tablet 5 mg PO DAILY Mental Health/Anxiety 06/24/23
fexofenadine 180 mg tablet 180 mg PO QPM Allergies 03/24/24
loperamide 2 mg tablet (Anti-Diarrheal (loperamide)) 2 mg PO DAILY diarrhea 03/24/24
amlodipine 5 mg tablet 5 mg PO DAILY Blood pressure #30 tabs 04/04/24
repaglinide 0.5 mg tablet 0.5 mg PO MEALS Diabetes #90 tabs 04/04/24
tenofovir alafenamide 25 mg tablet (Vemlidy) 25 mg PO DAILY Liver issues #0 tabs 04/04/24
Review of Systems
-
History Source: Patient
Constitutional: Reports No Symptoms
EENT: Reports No Symptoms
Respiratory: Reports Cough
Cardiac: Reports No Symptoms
Abdomen/GI: Reports No Symptoms
: Reports No Symptoms
Musculoskeletal: Reports Edema
Skin: Reports No Symptoms
Neurological: Reports Other (confusion)
Endocrine: Reports No Symptoms
Hematologic/Lymphatic: Reports No Symptoms
Psych: Reports No Symptoms
Physical Exam
Vital Signs
Vital Signs
Temp Pulse Resp BP Pulse Ox
99.7 F 85 22 139/76 95
04/09/24 01:00 04/09/24 01:15 04/09/24 01:15 04/09/24 01:00 04/09/24 01:50
Physical Exam
General: No Apparent Distress
HEENT: NormoCephalic, Anicteric, Moist mucous membranes, PERRLA and Oxygen
Respiratory: Crackles (Right basal crackles)
Cardiac: S1/S2 and Regular Rhythm
Breast: Deferred by me
GI: Soft, Non Tender, Non Distended and Normal Bowel Sounds
Rectal: Deferred by Provider
Genito-urinary: Clear Urine
Musculoskeletal: No Clubbing, No Cyanosis and No Edema
Skin: Warm
Neuro: Awake, Alert and Oriented (oriented to person)
Hematologic/Lymphatic: No Lymphadenopathy
Psych: Calm
Laboratory Results
-
04/08/24 23:38
04/08/24 23:38
Laboratory Results
Total Bilirubin 0.7 mg/dl (0.2-1.3) 04/08/24 23:38
AST 27 U/L (17-59) 04/08/24 23:38
ALT 25 U/L (0-50) 04/08/24 23:38
Alkaline Phosphatase 87 U/L (38-126) 04/08/24 23:38
Data Reviewed
-
Diagnostic Radiology: Image Personally Visualized and interpreted
CT Scan: Report Reviewed by me
Lab Data: Labs Reviewed by me
Old Records: Reviewed
Impression/Plan
-
IMPRESSION:
88-year-old male with past medical history significant for liver transplantation on immunosuppressants, recent COVID 19 infection complicated by elevated Tac level with paxlovid and mild BRIT now resolved who presents to the emergency department with
cough, confusion and a low grade temp. Found to be hypoxic in ED. Exam shows R LL crackles. Xray and CT do not confirm clear consolidation. Confusion noted at home without focal neurological deficits.
PLAN:
1. Hypoxia - Low grade temps in immunosuppressed patient, hypoxia, cough and confusion. Equivocal consolidation/atelectasis on imaging. Given findings and recent COVID infection, there is concern for post-viral bacterial pneumonia. Satting 95% on
2 L NC. Influenza negative
- admit to med surg
- obtain blood cultures, legionella ag
- check procalcitonin
- Vancomycin and cefepime for now
- supportive care w/ incentive spirometry.
2. Confusion - Episode of confusion today. No focal deficits. Labs unremarkable and no LFT anomalies. U/A is negative. Suspect metabolic. from infection
- treat pna as above
- no real evidence of dehydration so will hold off on additional iv fluids
- continue donepzeil
3. Liver Tx - TAC level reported to me as 2.7 which is below the therapeutic range after being held for elevated levels.
- check level in am, restart 1mg po daily when there is official confirmation of the level.
- continue Vemlidy 25mg po daiy
4. BPH
- tamsulosin 0.8 hs
5. Elevated blood sugar. - On repaglinide 0.5 with meals. No DKA
- insulin sliding scale for now
- check a1c
DVT PPX - lovenox sq
Full Code
[2024-04-09] MEDS: MAXIPIME 1000 MG IV (02:23)
[2024-04-09] MEDS: VANCOCIN 300 MG IV (02:27)
[2024-04-09] MEDS: VANCOCIN 300 ML IV (02:27)
[2024-04-09 05:40] LABS: Glucose - Point of Care 185 mg/dl (70-99)
--- NOTE | 2024-04-09 05:59 | PTCARENOTE ---
Receive pt from ER. Pt alert oriented X2, confused to time, in no distress. Pt pulled over to his bed from ER stretcher. Pt oriented to the room, call freedman within reach. Pt Macedonian minimally speaking, but let his needs known. Low grade fever, T=99,
HR=79, BE=440/75, RR=18, SpO2=96-98% on 3L NC. Pt's blood lfjyc=677. Bed alarm in place for pt safety. Will continue to monitor the pt.
[2024-04-09 07:11] LABS: Glucose - Point of Care 189 mg/dl (70-99)
--- NOTE | 2024-04-09 07:26 | PHA.VAN.IN ---
Assessment
- Assessment
Renal Function: Appears elevated from baseline
Maximum Temperature: 100
Minimum Temperature: 99
Concomitant Antimicrobials: Cefepime
- Previous Dosing Experience
Previous Regimen: Vanc 1000mg IV Q24H
Date of Regimen: 06/27/23
Provided Trough of: 11.3 (Estimated. No level drawn)
Provided AUC of: 506 (Estimated. No level drawn)
Patient's SCR is: Elevated compared to previous dosing experience
Patient's weight is: Similar to previous dosing experience
Plan
- Plan
Initial / Loading Dose: Vanc 1500mg given 04/09 at 0227
Maintenance Regimen: Dose by level
Monitoring: Random level 04/10 AM
Pharmacokinetics Vancomycin I
- -
Patient Age: 88
Patient Sex: Male
Vancomycin Day #: 1
Indication: Pulmonary/Respiratory
Requesting Provider: Sole
Height / Weight:
Height 5 ft 5 in
Actual Weight 58.202 kg
IBW in k.5
Adjusted BW in kg: NA
Pertinent Past Medical History: Hx of liver transplant on tenofovir, tacrolimus; Hx BRIT
- Vital Signs / Lab Results
Temp Pulse Resp BP Pulse Ox
98.9 F 74 18 130/69 96
04/09/24 07:20 04/09/24 07:20 04/09/24 07:20 04/09/24 07:20 04/09/24 07:20
Lab Results - Hematology
04/08/24
23:38
WBC 9.0
Lab Results - Chemistry
04/08/24
23:38
BUN 23 H
Creatinine 1.3
Estimated Creat Clear 34
Albumin 3.9
Lab Results - Urine
04/09/24
00:04
Urine Nitrite (Reflex) Negative
Leukocyte Esterase Rfl Negative
Microbiology Results
04/08/24 23:38 Influenza Types A & B (BISI) - Final
Nasal Swab Negative for Influenza A & B, NAAT
Negative results must be combined with clinical observations
and patient history.
Nucleic Acid Amplification test (NAAT)performed on the
[employer] platform.
[2024-04-09] MEDS: LEXAPRO 5 MG PO (08:27)
[2024-04-09] MEDS: NORVASC 5 MG PO (08:27)
[2024-04-09] MEDS: HEPARIN 5000 UNITS SC ×2 (08:28→17:00)
[2024-04-09] MEDS: NON-FORMULARY ITEM 25 MG PO (08:30)
[2024-04-09 09:07] LABS: Hematocrit 29.5 % (39.0-52.0); Hemoglobin 10.2 g/dL (13.0-18.0); Mean Corp Hgb Conc. 34.6 g/dL (33.0-37.0); Mean Corpuscular Hgb 29.5 pg (27.0-31.0); Mean Corpuscular Volume 85.3 fL (80.0-94.0); Mean Platelet Volume 9.5 fL (7.4-10.4); Platelet Count 209 10^3/uL (130-400); Red Blood Cell Count 3.46 10^6/uL (4.70-6.10); Red Cell Dist. Width 12.7 % (11.5-14.5); White Blood Cell Count 8.2 10^3/uL (4.8-10.8)
[2024-04-09 09:26] LABS: Procalcitonin 0.06 ng/ml (0.0-0.25)
[2024-04-09 10:28] LABS: Blood Urea Nitrogen 19 mg/dl (9-20); Calcium 8.8 mg/dl (8.4-10.2); Carbon Dioxide 29 mmol/L (22-30); Chloride 99 mmol/L (98-107); Estimated Creatinine Clearance 40 ml/min; Glucose 174 mg/dl (70-99); Sodium 136 mmol/L (135-145); eGFR > 60.00
[2024-04-09] MEDS: PROGRAF 1 MG PO ×2 (10:47→20:19)
[2024-04-09] MEDS: MAXIPIME 2000 MG IV (12:30)
[2024-04-09] MEDS: STERILE WATER FOR INJECTION 10 ML IV (12:31)
--- NOTE | 2024-04-09 12:50 | CON.ID ---
Consultation
-
Date/Time Consultation Requested: 04/09/24 0908
Date/Time Consultation Performed: 04/09/24 1255
Requesting Provider: Dr. Alan Howe
Performing Provider: Dr. Estrellita Robertson
Reason for Consultation: Recent COVID, now with change in mental status, fever, weakness
Chief Complaint / Past History
Chief Complaint
BLE ankle swelling, weakness
History of Present Illness
History obtained from daughter at bedside. Mr. Sanchez is a 88-year-old male with cirrhosis history of liver transplant on tacrolimus, chronic hepatitis B on tenofovir, dementia who presented to the hospital April 08 due to weakness, confusion, lower
extremity edema. Patient was recently hospitalized from March 24 to with fever. COVID was positive. He was placed on Paxlovid and discharged to home which he completed the 5-day course of Paxlovid. He returned to the hospital April 01
with weakness, confusion, poor appetite, mild BRIT. There was concern that the Paxlovid may have increased the tacrolimus level. Tacrolimus level sent. BRIT resolved. He was discharged to home. After discharge the tacrolimus level resulted as
high at 113. The renal transplant team recommended repeat tacrolimus level. He presented to the ER yesterday for lab work. Family reported increased weakness, confusion, increased cough. Also with BLE edema. Patient noted to have hypoxic, low
90's, T=100. Repeat tacro 2.7. Vanco, cefepime started and he is admitted. Today, daughter reports patient is better. Mental status improved. B/L ankle edema decreased. He is now off oxygen. Pt has been weak since COVID infection. Also has
lingering cough since COVID. No abd pain. He reports diarrhea today (but no documentation in chart).
Past History
Additional Past Medical History:
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
dementia
BPH
COVID infection 03/24/29 s/p Paxlovid
Prostate CA s/p XRT
Allergy History:
No Known Allergies Allergy (Verified 04/08/24 22:55)
Medications Reviewed: Yes
Current Antibiotics:
Vancomycin
cefepime
Social History
Tobacco: Non-Smoker
Alcohol: Former
Drug: None
Personal:
Living: With Family
Family History
Family History: Not Pertinent
Review of Systems
Review of Systems
General: Change in Appetite; Negative Chills
HEENT: Negative Sinus Problems, Headache or Pharyngitis
Cardiovascular: Edema; Negative Chest Pain
Respiratory: Cough; Negative Dyspnea
Gasteroenterology: Diarrhea; Negative Nausea or Vomiting
Genital / Urological: Negative Dysuria or Flank Pain
Endocrine: Weakness
Skin / Hair / Nails: Negative Rash
Neurological: Negative Headache or Dizziness
All systems: All other systems were reviewed and were negative
Vital Signs
Temp Pulse Resp BP Pulse Ox
98.9 F 74 18 130/69 95
04/09/24 07:20 04/09/24 08:27 04/09/24 07:20 04/09/24 08:27 04/09/24 09:15
Physical Exam
Physical Exam
Constitutional: No Acute Distress and Comfortable
Head: Other (No frontal or maxillary sinus tenderness)
Eyes: No Conjunctival Hemorrhage and Sclera Anicteric
Cardiovascular: Regular Rate and S1/S2
Gastrointestinal: Soft
Genito-Urinary: Negative Muñoz or CVA Tenderness
Extremities: Edema (trace pedal/ankle edema); Negative Erythema
Neurological: Awake and Alert
Lab / Diagnostic Study Results
04/09/24 06:48
04/09/24 06:48
Abs Immat Gran (auto) 0.1 10^3/uL (0-0.05) H 04/08/24 23:38
Absolute Neuts (auto) 8.0 10^3/uL (1.4-6.5) H 04/08/24 23:38
Absolute Lymphs (auto) 0.4 10^3/uL (1.2-3.4) L 04/08/24 23:38
Absolute Monos (auto) 0.5 10^3/uL (0.1-0.6) 04/08/24 23:38
Absolute Basos (auto) 0.0 10^3/uL (0-0.2) 04/08/24 23:38
Immature Gran % 0.8 % (0-0.5) H 04/08/24 23:38
Neutrophils % 88.3 % (42.2-75.2) H 04/08/24 23:38
Lymphocytes % 4.6 % (20.5-51.1) L 04/08/24 23:38
Monocytes % 5.4 % (1.7-9.3) 04/08/24 23:38
Eosinophils % 0.7 % (0-6) 04/08/24 23:38
Basophils % 0.2 % (0-2) 04/08/24 23:38
Procalcitonin 0.06 ng/ml (0.0-0.25) 04/09/24 06:48
Microbiology Results
Micro:
04/09/24 07:25 MRSA Screen - Pending
Nose
04/08/24 23:38 Influenza Types A & B (BISI) - Final
Nasal Swab Negative for Influenza A & B, NAAT
Negative results must be combined with clinical observations
and patient history.
Nucleic Acid Amplification test (NAAT)performed on the
[employer] platform.
04/08/24 CXR: Chronic lung findings with bibasilar opacities, favoring atelectasis however pneumonia cannot be excluded.
04/09/24 CT a/p: There is mild intrahepatic and extra hepatic biliary ductal dilation with the common bile duct measuring 1.3 cm. This may be secondary to reservoir effect in the setting of prior cholecystectomy. Markedly prostatomegaly with mild
circumferential wall thickening of the urinary bladder which may be secondary to chronic outlet obstruction however cystitis could appear similar. Recommend correlation with urinalysis. The pancreas is atrophic with prominence of the main pancreatic
duct. There are numerous cystic lesions along the pancreas with the largest measuring 2.3 cm along the pancreatic head. Differential includes IPMN and pseudocysts. Further evaluation with MRI abdomen is recommended.
Assessment / Plan
# Weakness, confusion
-Infectious etiology ruled out.
- Afebrile. (had low grade temp 100 x 1 resolved. )
- normal wbc.
- UA neg, no pyuria.
- CXR no acute findings. Procalcitonin negative
- Weakness likely due to deconditioned state from recent COVID infection
- Intermittent confusion from dementia vs COVID sequelae
- DC Vanco and cefepime.
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
dementia
BPH
COVID infection 03/24/29 s/p Paxlovid
Prostate CA s/p XRT
Care Review
Plan reviewed with: Physician (Dr. Howe)
--- NOTE | 2024-04-09 14:21 | CON.GI ---
Consultation
-
Date/Time Consultation Requested: 04/09/2024
Date/Time Consultation Performed: 04/09/2024
Performing Provider: Timothy Sanchez
Reason for Consultation: tacrolimus level derangement
Medical History
Chief Complaint / HPI
Chief Complaint: tacrolimus level derangement
History of Present Illness:
Patient is a 88-year-old male with h/o Hep B cirrhosis s/p OLT 20 years ago on chronic immunosuppression (tacrolimus), DM, prostate CA with prior XRT, dementia, and recent COVID infection s/p Paxlovid who p/w AMS and fever. GI is being consulted
for tacrolimus level derangement. Patient was recently admitted with confusion and weakness, after being treated with Paxlovid for his COVID infection in late 02/2024. He was hospitalized for about 3 days with supportive management, clinically
improved and was discharged home. His tacrolimus level which was drawn during his hospitalization prior to his discharge resulted greater than 100. He returned to the ER on 04/08/2024 and had tacrolimus level drawn again around 11:30 PM which
showed trough level of 2.7 (not available to review on [employer]).
Past Medical History
Past Medical History: HTN, NIDDM and Other
Past Surgical History: Other
Social History
Tobacco: Non-Smoker
Alcohol: None
Allergies / Home Medications
Allergy/AdvReac Type Severity Reaction Status Date / Time
No Known Allergies Allergy Verified 04/08/24 22:55
�Medication �Instructions �Recorded
donepezil 10 mg tablet 10 mg PO QPM Neurological Condition 11/26/22
tacrolimus 1 mg capsule, 1 mg PO DAILY Autoimmune Disorder 11/26/22
immediate-release
tamsulosin 0.4 mg capsule 0.8 mg PO QPM Urinary Issue 11/26/22
escitalopram oxalate 5 mg tablet 5 mg PO DAILY Mental Health/Anxiety 06/24/23
fexofenadine 180 mg tablet 180 mg PO QPM Allergies 03/24/24
loperamide 2 mg tablet 2 mg PO DAILY diarrhea 03/24/24
(Anti-Diarrheal (loperamide))
amlodipine 5 mg tablet 5 mg PO DAILY Blood pressure #30 04/04/24
tabs
repaglinide 0.5 mg tablet 0.5 mg PO MEALS Diabetes #90 tabs 04/04/24
tenofovir alafenamide 25 mg tablet 25 mg PO DAILY Liver issues #0 tabs 04/04/24
(Vemlidy)
Review of Systems
Vital Signs
Temp Pulse Resp BP Pulse Ox
98.9 F 74 18 130/69 95
04/09/24 07:20 04/09/24 08:27 04/09/24 07:20 04/09/24 08:27 04/09/24 09:15
Physical Exam
Exam
General: Well Developed and Well Nourished
HEENT: Normocephalic
Respiratory: Clear
Cardiac: S1/S2
GI: Soft, Non Tender, Non Distended, Normal Bowel Sounds and Other (well healed rebel scar from previous OLT present)
Results
WBC 8.2 10^3/uL (4.8-10.8) 04/09/24 06:48
Hgb 10.2 g/dL (13.0-18.0) L 04/09/24 06:48
Hct 29.5 % (39.0-52.0) L 04/09/24 06:48
MCV 85.3 fL (80.0-94.0) 04/09/24 06:48
Plt Count 209 10^3/uL (130-400) 04/09/24 06:48
Absolute Neuts (auto) 8.0 10^3/uL (1.4-6.5) H 04/08/24 23:38
Sodium 136 mmol/L (135-145) 04/09/24 06:48
Potassium 4.0 mmol/L (3.5-5.1) 04/09/24 06:48
Chloride 99 mmol/L (98-107) 04/09/24 06:48
Carbon Dioxide 29 mmol/L (22-30) 04/09/24 06:48
BUN 19 mg/dl (9-20) 04/09/24 06:48
Creatinine 1.1 mg/dL (0.7-1.3) 04/09/24 06:48
Calcium 8.8 mg/dl (8.4-10.2) 04/09/24 06:48
Total Bilirubin 0.7 mg/dl (0.2-1.3) 04/08/24 23:38
AST 27 U/L (17-59) 04/08/24 23:38
ALT 25 U/L (0-50) 04/08/24 23:38
Alkaline Phosphatase 87 U/L (38-126) 04/08/24 23:38
Diagnostic Image Results:
Prior GI Procedures:
EGD:
Colonoscopy:
Assessment / Plan
-
88-year-old male with h/o Hep B cirrhosis s/p OLT 20 years ago on chronic immunosuppression (tacrolimus), DM, prostate CA with prior XRT, dementia, and recent COVID infection s/p Paxlovid who p/w AMS and fever. GI is being consulted for tacrolimus
level derangement.
Impression / Rec:
1. Tacrolimus trough level - as per hospitalist, pt had recent trough level which was > 100 few days ago. I spoke with patient's ygjvimik-pd-hep to elucidate administration of patient's tacrolimus as well as the timeline when his most recent
trough level was drawn. Patient had uninterrupted administration of tacrolimus at least for past 1 week. The reported most recent trough level of 2.7 was from the blood work that was done when he returned to [facility] on 04/08/2024. The estimated
time of blood draw as per the fuxonvgh-vv-hwp was around 11:30 PM. His last tacrolimus on 04/08/2024 was around 10 AM. Thus the reported tacrolimus trough levels of 2.7 most likely reflect the patient's level after his tacrolimus morning dose on
04/08/2024. His MAR was reviewed. He was administered his home dose (1 mg) of tacrolimus at 10:30 AM today. Thus patient should have a repeat tacrolimus level drawn today around 10:30 PM. This along with the last trough level of 2.7 should give
us the most accurate tacrolimus trough levels. Adjustment in his tacrolimus dosing ordered administration can be decided based upon dose to tacrolimus trough levels.
Total Time Spent with Patient (in minutes): 55
-
-
Thank you for consultation and allowing me to participate in the patient's care. Please call the cloud operations engineer GI physician during the after hours with any questions or concerns.
--- NOTE | 2024-04-09 14:45 | CM ---
Addendum entered by Tania Moser 04/09/24 14:52:
Chart reviewed: returned to the ER on 04/08/2024 and had tacrolimus level drawn again around 11:30 PM which showed trough level of 2.7.
GI consulted
Original Note:
Initial assessment completed with patient's mazgeppm-hm-[id number] via phone
Patient was recently discharged from on 04/04; has dementia; re-admitted with mental status change and confusion
Pharmacy verified: [facility] @ [address] [place] [address]
Patient lives with son, [id number] and granddaughter; 3 story home; 5 steps to enter; 12 steps to his bedroom and bathroom; home has powder room on 1st floor
PLOF: patient was independent with ambulation, stairs, and ADLs
No SNF utilization history; Home Health services with [facility] in the past
Will need ambulance transportation
Plan: discharge plan to be determined pending hospital course
--- NOTE | 2024-04-09 15:52 | W.PN.HOSP.TC ---
Today's Communication/Plan
-
Await cultures
PT OT
Tac level at 10.30 PM tonight ( ordered)
Assessment / Plan
Assessment / Plan
88 y/o male Recently admitted with mental status change and was treated for dehydration. He was admitted prior to that with COVID-19 and was discharged on Paxlovid which was held on admission. We had discharge the patient on tacrolimus 1 mg daily
dosage which is his usual dose. Tacrolimus level was faxed to me on 04/07/2024. I called the [facility] with the results as patient was discharged. [facility] contacted the patient. Unclear if tacrolimus was held on 04/08/2024. Patient was called back
for labs yesterday. Reportedly from the lab when I spoke to them level was 2.7 yesterday. Today's results are pending. Again unclear if the result was drawn prior to patient receiving 1 mg this morning. After talking to the lab later yesterday
they have a different lab now processing this. Results get scanned in wednesday .
Patient came to the hospital for evaluation as family felt he was confused. He does have a history of dementia but he could not figure out how to get dressed which is quite not typical for him. He was also weak.
CT scan of the abdomen and pelvis-cholecystectomy, dilatation of CBD 13 mm with mild central biliary dilatation possibly postcholecystectomy change. Mild dilatation of the pancreatic duct. Multiple small cystic lesions within the pancreas mainly
in an sidebranch IPMN or other cystic lesion. Largest lobulated cystic lesion within the pancreatic head 2.4 and 1.5 cm. No hydronephrosis or obstructing calculi. Subcentimeter bilateral renal hypodensities. Bladder is partially distended with
mild bladder wall thickening and trabeculation likely secondary to outlet obstruction. Markedly enlarged prostate. Prostatic seeds. Mild stool in the colon. Moderate vascular calcification. Mild atelectasis at the lung bases. Mild DJD in the
spine
Chest [id number]-oby-xlrujox lung with bibasilar opacities favoring atelectasis, pneumonia cannot be excluded
Late documentation
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
[facility]: S1-S2 normal
Chest: CTA B/L
Abdomen: Soft, NT / Bowel sounds present
Extremities: No edema, normal pulses
CHAIN BUILDER: Non focal exam, Pleasantly demented.
# Mild hypoxia temperature 100
Atelectasis with 88% saturation
Admitted for evaluation
Infectious disease consultation appreciated.
Patient started on vancomycin and cefepime- Stopped By ID
Incentive spirometry
Cultures pending
# Admitted with acute kidney last admission
# Admitted with COVID-19 infection prior to that
# Confusion-baseline dementia
TME- back to baseline. Possible dementia related.
# History of liver transplant
Tacrolimus level from April 01 (likely wrong value ?)
Was held on 04/08/24 per [facility] Level 2.7 on 04/08/24. Again level drawn today am with out giving additional dose.
Spoke to Lab Tac level is 2.7 today, therefore restarted prior dose of 1 mg ,GI evaluation requested for additional recommendation
LFTs are normal
Continue Vemlidy and tacrolimus 1 mg
D/W GI
Usually dose if 1 mg BID per GI , but pt was on 1 mg daily as OP for unclear reasons
(prescribed by his PCP)
Per D/W GI- get a Tac level at 10.30 PM tonight.
# History of prostate cancer with radiation therapy-continue Flomax
# Diabetes-Prandin started last admission
Hemoglobin A1c 8.7
Accu-Cheks and sliding scale coverage
# Dementia-continue Aricept, Lexapro
# Hypertension-continue amlodipine
# Depression-continue Lexapro
# Ambulatory dysfunction-PT OT evaluated the patient and home PT was recommended last time
# Full code
# DVT prophylaxis- CHRISTINA
D/W RN
D/W GI and ID
Anticipated Discharge: 24 - 48 hours
Subjective/Interval History
-
Date of Service: April 09, 2024
Objective Data
-
Labs:
Laboratory Results
04/09/24
06:48
WBC 8.2
Hgb 10.2 L
Hct 29.5 L
Plt Count 209
Sodium 136
Potassium 4.0
Chloride 99
Carbon Dioxide 29
BUN 19
Creatinine 1.1
Glucose 174 H
Calcium 8.8
Vital Signs:
Vital Signs
Temp Pulse Resp BP Pulse Ox
98 F 69 20 116/69 96
04/09/24 15:11 04/09/24 15:11 04/09/24 15:11 04/09/24 15:11 04/09/24 15:11
--- NOTE | 2024-04-09 16:07 | W.PN.UPDATE ---
Update Note
Progress Note Update
Per discussion with GI ,for doctor tacrolimus was changed to 1 mg twice daily. Trough levels to be drawn at 8 AM prior to morning dose on 04/10/2024.
[2024-04-09] MEDS: CLARITIN 10 MG PO (17:03)
[2024-04-09] MEDS: ARICEPT 10 MG PO (17:03)
[2024-04-09] MEDS: FLOMAX 0.8 MG PO (17:03)
[2024-04-09] MEDS: NOVOLOG FLEXPEN-LOW RESISTANCE 1 UNITS SC (18:00)
[2024-04-09 18:04] LABS: Glucose - Point of Care 183 mg/dl (70-99)
[2024-04-09 21:21] LABS: Glucose - Point of Care 240 mg/dl (70-99)
[2024-04-10] MEDS: HEPARIN 5000 UNITS SC ×2 (00:30→09:00)
--- NOTE | 2024-04-10 06:50 | W.PN.HOSP.TC ---
Addendum entered and electronically signed by Beny Granados MD 04/10/24 13:57:
I saw and evaluated the patient. I reviewed the resident�s note and agree with findings and plan as documented in the resident�s note.
Patient offers no acute complaints. He states he feels better.
Gen: NAD, Awake and alert, NCAT
Eyes: EOMI, PERRLA, no scleral icterus.
Neck: supple.
CV: RRR, +S1/S2, no m/r/g.
Resp: CTAB, no rales, wheezes, or rhonchi.
Abd: +BS, soft, NT, ND
Skin: No rashes.
Neuro: CN 2-12 intact, non-focal.
Psych: Normal mood and affect.
Acute confusion:
-Afebrile, no leukocytosis
-No evidence of infection at this time. Off antibiotics as per infectious disease.
-Likely the patient's confusion is related to his underlying dementia.
-Awaiting today's tacrolimus level. Previous level done on admission is documented at 2.7.
-The patient's confusion has improved. He is medically stable for discharge. Case management is aware.
Original Note:
Today's Communication/Plan
-
Contact patient's family to assess change in status
follow tacrolimus levels
beta tarun for essential tremors
Hold norvasc
Assessment / Plan
Assessment / Plan
IMPRESSION
88 y/o male Recently admitted with weakness,confusion and cough. Recently discharged on April 04, 2024 after being diagnosed and treated for acute kidney injury secondary to increased tacrolimus levels. Patient had and repeated tacrolimus levels
on April 08, 2024. There was discrepancy between the results of April 01, 2024 and the recent results so the patient was admitted for the lab work and for symptoms of acute confusion in the emergency. According to the patient's family, the
patient was unable to dress himself which is atypical for the patient. This is patient's third day of admission and according to family the patient is improving.
Tacrolimus levels to be sent today at 8 AM to look for tacrolimus levels prior to dose administration in the morning (04/10)
IMPORTANT IMAGE FINDINGS
CT scan of the abdomen and pelvis-cholecystectomy, dilatation of CBD 13 mm with mild central biliary dilatation possibly postcholecystectomy change. Mild dilatation of the pancreatic duct. Multiple small cystic lesions within the pancreas mainly
in an sidebranch IPMN or other cystic lesion. Largest lobulated cystic lesion within the pancreatic head 2.4 and 1.5 cm. No hydronephrosis or obstructing calculi. Subcentimeter bilateral renal hypodensities. Bladder is partially distended with
mild bladder wall thickening and trabeculation likely secondary to outlet obstruction. Markedly enlarged prostate. Prostatic seeds. Mild stool in the colon. Moderate vascular calcification. Mild atelectasis at the lung bases. Mild DJD in the
spine
Chest a-pbk-ytljotv lung with bibasilar opacities favoring atelectasis, pneumonia cannot be excluded
#BILATERAL HAND TREMORS
Essential tremors?
# Mild hypoxia
At the time of admission patient had a temperature of 100 �F and an oxygen saturation of 88%
Chest x-ray was done that showed bilateral atelectasis but no focal infiltrate
Infectious disease consultation appreciated.
Patient started on vancomycin and cefepime- Stopped By ID
AFEBRILE IN LAST 24 HOURS
COMPLAINS OF MILD COUGH ON AND OFF
Incentive spirometry
Cultures pending
# Confusion-baseline dementia
Patient has history of senile dementia
Patient is able to provide information on any current symptoms that he is experiencing
Patient unable to provide history related to his admission
He knows the time of the day and his name.
# History of liver transplant
Patient has history of liver transplant that was done approximately 13 years ago
On tacrolimus since then
Was recently admitted on April 01 for tacrolimus and Paxlovid related acute kidney injury
Tacrolimus was continued on as advised by gastroenterology
Due to recent tacrolimus levels in the blood, it was discontinued on April 08, 2024 as per tona, family says that the drug was never discontinued
Tacrolimus levels in the emergency of [facility] were 2.7
Patient is currently on tacrolimus twice daily after discussing with gastroenterology
Tacrolimus levels to be repeated today at 8 AM before the morning dose
# History of prostate cancer with radiation therapy-continue Flomax
# Diabetes-Prandin started last admission
Hemoglobin A1c 8.7
Accu-Cheks and sliding scale coverage
# Dementia-continue Aricept, Lexapro
# Hypertension-continue amlodipine
# Depression-continue Lexapro
## Admitted with acute kidney last admission
# Admitted with COVID-19 infection prior to that Ambulatory dysfunction-PT OT evaluated the patient and home PT was recommended last time
# Full code
# DVT prophylaxis- CHRISTINA
Anticipated Discharge: 24 - 48 hours
Subjective/Interval History
-
Date of Service: April 10, 2024
Patient sitting on the edge of the bed, with a diaper in his hand, does not know what to do with and how to put it on. He does note that it is daytime and he knows his name. He does not know who brought him to the hospital. Used a language
cook camp who said that patient was worried about the tremor of his hands that was hindering in his activities.
Objective Data
-
Labs:
Laboratory Results
04/10/24
06:00
WBC Pending
Hgb Pending
Hct Pending
Plt Count Pending
Sodium Pending
Potassium Pending
Chloride Pending
Carbon Dioxide Pending
BUN Pending
Creatinine Pending
Glucose Pending
Calcium Pending
Total Bilirubin Pending
AST Pending
ALT Pending
Alkaline Phosphatase Pending
Vital Signs:
Vital Signs
Temp Pulse Resp BP Pulse Ox
98.2 F 74 19 123/69 93
04/09/24 23:33 04/09/24 23:33 04/09/24 23:33 04/09/24 23:33 04/09/24 23:33
I&O
04/08/24 04/09/24 04/10/24
06:59 06:59 06:59
Intake Total 480 / 480
Output Total 100 / 100
Balance 380 / 380
Review of Systems
-
All other systems: Reviewed and negative
Physical Exam
-
General: Well Developed, Well Nourished, No Apparent Distress, Comfortable and Conversant
HEENT: Normocephalic and Atraumatic
Respiratory: Clear to Auscultation
Cardiac: Regular Rhythm and S1/S2
GI: Soft, Nontender and Normal Bowel Sounds
Genito-urinary: No Costovertebral Tender
Musculoskeletal: No Clubbing, No Cyanosis and Other (intentional tremors)
Skin: Warm and Dry
Neuro: Awake, No Motor Deficits and Other (PLEASANT AND HAS DEMENTIA)
Hematologic / Lymphatic: No Lymphadenopathy
Psych: Calm
[2024-04-10 07:35] VITALS: BP 117/67
[2024-04-10 07:51] LABS: Hematocrit 28.6 % (39.0-52.0); Hemoglobin 10.2 g/dL (13.0-18.0); Mean Corp Hgb Conc. 35.7 g/dL (33.0-37.0); Mean Corpuscular Volume 84.1 fL (80.0-94.0); Mean Platelet Volume 9.1 fL (7.4-10.4); Platelet Count 176 10^3/uL (130-400); Red Cell Dist. Width 12.6 % (11.5-14.5)
[2024-04-10 07:53] LABS: Glucose - Point of Care 201 mg/dl (70-99)
[2024-04-10 08:17] LABS: ALT (SGPT) 18 U/L (0-50); AST (SGOT) 15 U/L (17-59); Albumin 3.4 g/dl (3.5-5.0); Alkaline Phosphatase 86 U/L (38-126); Blood Urea Nitrogen 18 mg/dl (9-20); Calcium 8.9 mg/dl (8.4-10.2); Carbon Dioxide 32 mmol/L (22-30); Chloride 98 mmol/L (98-107); Estimated Creatinine Clearance 40 ml/min; Glucose 182 mg/dl (70-99); Magnesium 1.8 mg/dl (1.6-2.3); Sodium 138 mmol/L (135-145); Total Bilirubin 0.9 mg/dl (0.2-1.3); Total Protein 6.1 g/dl (6.3-8.2); eGFR > 60.00
[2024-04-10] MEDS: NOVOLOG FLEXPEN-LOW RESISTANCE 2 UNITS SC (09:03)
[2024-04-10] MEDS: PROGRAF 1 MG PO (09:04)
[2024-04-10] MEDS: NORVASC 5 MG PO (09:04)
[2024-04-10] MEDS: NON-FORMULARY ITEM 25 MG PO (09:05)
[2024-04-10] MEDS: LEXAPRO 5 MG PO (09:05)
--- NOTE | 2024-04-10 10:24 | W.PN.ID1 ---
Date of Service
Date of Service: April 10, 2024
Today's Communication
Observe off abx.
ID will sign off.
Assessment / Plan
# Weakness, confusion
-Infectious etiology ruled out.
- Afebrile. (had low grade temp 100 x 1 resolved. )
- normal wbc.
- UA neg, no pyuria.
- CXR no acute findings. Procalcitonin negative
- Transient hypoxia resolved
- Weakness likely due to deconditioned state from recent COVID infection (treated with Paxlovid)
- Intermittent confusion from dementia vs COVID sequelae
- Observe off abx.
ID will sign off.
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
dementia
BPH
COVID infection 03/24/29 s/p Paxlovid
Prostate CA s/p XRT
Chief Complaint
-: Other (Weakness)
Subjective / Review of Systems
Resting comfortably
Vital Signs / Physical Exam
Vital Signs
Vital Signs
Temp Pulse Resp BP Pulse Ox
97.8 F 70 16 117/67 93
04/10/24 07:35 04/10/24 07:35 04/10/24 07:35 04/10/24 07:35 04/10/24 09:00
Physical Exam
Constitutional: No Acute Distress
Cardiovascular: Regular Rate and S1/S2
Pulmonary: Clear (anteriorly)
Gastrointestinal: Soft, Non Tender, Non Distended and Normal Bowel Sounds
Genito-Urinary: Negative CVA Tenderness
Objective Data
Lab Data
Lab Results
04/10/24 07:42
04/10/24 07:42
Estimated Creat Clear 40 ml/min 04/10/24 07:42
Total Bilirubin 0.9 mg/dl (0.2-1.3) 04/10/24 07:42
AST 15 U/L (17-59) L 04/10/24 07:42
ALT 18 U/L (0-50) 04/10/24 07:42
Alkaline Phosphatase 86 U/L (38-126) 04/10/24 07:42
Most recent labs reviewed.
Micro Results:
04/09/24 07:25 MRSA Screen - Final
Nose No Methicillin Resistant Staphylococcus aureus isolated.
04/08/24 23:38 Influenza Types A & B (BISI) - Final
Nasal Swab Negative for Influenza A & B, NAAT
Negative results must be combined with clinical observations
and patient history.
Nucleic Acid Amplification test (NAAT)performed on the
APProtect platform.
04/08/24 CXR: Chronic lung findings with bibasilar opacities, favoring atelectasis however pneumonia cannot be excluded.
04/09/24 CT a/p: There is mild intrahepatic and extra hepatic biliary ductal dilation with the common bile duct measuring 1.3 cm. This may be secondary to reservoir effect in the setting of prior cholecystectomy. Markedly prostatomegaly with mild
circumferential wall thickening of the urinary bladder which may be secondary to chronic outlet obstruction however cystitis could appear similar. Recommend correlation with urinalysis. The pancreas is atrophic with prominence of the main pancreatic
duct. There are numerous cystic lesions along the pancreas with the largest measuring 2.3 cm along the pancreatic head. Differential includes IPMN and pseudocysts. Further evaluation with MRI abdomen is recommended.
[2024-04-10 11:40] LABS: Glucose - Point of Care 140 mg/dl (70-99)
[2024-04-10] MEDS: NOVOLOG FLEXPEN-LOW RESISTANCE SC (11:46)
--- NOTE | 2024-04-10 12:54 | W.PN.GI.CBS2 ---
Addendum entered and electronically signed by Timothy Sanchez MD 04/10/24 13:41:
I saw and examined the patient.
The PA's note was reviewed and I agree with the note.
Comment:
Pt received tacrolimus 1mg last night, level drawn this AM before the administration of AM dose. Waiting for results.
Original Note:
Today's Communication / Plan
-
as per plan
Assessment / Plan
-
88-year-old male with h/o Hep B cirrhosis s/p OLT 20 years ago on chronic immunosuppression (tacrolimus), DM, prostate CA with prior XRT, dementia, and recent COVID infection s/p Paxlovid who p/w AMS and fever. GI is being consulted for tacrolimus
level derangement.
Impression / Rec:
1. Tacrolimus trough level - as per hospitalist, pt had recent trough level which was > 100 few days ago. I spoke with patient's rnbqkinp-gi-imn to elucidate administration of patient's tacrolimus as well as the timeline when his most recent
trough level was drawn. Patient had uninterrupted administration of tacrolimus at least for past 1 week. The reported most recent trough level of 2.7 was from the blood work that was done when he returned to [facility] on 04/08/2024. The estimated
time of blood draw as per the qskmjxji-sa-doz was around 11:30 PM. His last tacrolimus on 04/08/2024 was around 10 AM. Thus the reported tacrolimus trough levels of 2.7 most likely reflect the patient's level after his tacrolimus morning dose on
04/08/2024. His MAR was reviewed. He was administered his home dose (1 mg) of tacrolimus at 10:30 AM today. Thus patient should have a repeat tacrolimus level drawn 04/09/24 around 10:30 PM. This along with the last trough level of 2.7 should
give us the most accurate tacrolimus trough levels. Adjustment in his tacrolimus dosing ordered administration can be decided based upon dose to tacrolimus trough levels.
Plan:
-Await repeat tacrolimus trough level/tacrolimus level
-Continues on tacrolimus 1mg po BID.
Subjective
Subjective
Date of Service: April 10, 2024
Patient calm and laying in bed. Denies any pain. Getting ready to eat. Awaiting tacrolimus level. Normal LFTs, no asterixis.
Objective
Data Reviewed
Laboratory Data:
Laboratory Results
04/10/24 07:42
04/10/24 07:42
Laboratory Results
Magnesium 1.8 mg/dl (1.6-2.3) 04/10/24 07:42
Total Bilirubin 0.9 mg/dl (0.2-1.3) 04/10/24 07:42
AST 15 U/L (17-59) L 04/10/24 07:42
ALT 18 U/L (0-50) 04/10/24 07:42
Alkaline Phosphatase 86 U/L (38-126) 04/10/24 07:42
Vital Signs and I&O:
Vital Signs
Temp Pulse Resp BP Pulse Ox
97.8 F 70 16 117/67 93
04/10/24 07:35 04/10/24 07:35 04/10/24 07:35 04/10/24 07:35 04/10/24 09:00
I&O
04/09/24 04/10/24 04/11/24
06:59 06:59 06:59
Intake Total 480 / 480
Output Total 100 / 100
Balance 380 / 380
Physical Exam
Physical Exam
HEENT: Anicteric
Cardiology: Normal Sinus Rhythm
Pulmonary: Clear
GI: Soft, Non Distended, Non Tender and Normal Bowel Sounds
Neuro: Non Focal and Other (no asterixis)
--- NOTE | 2024-04-10 14:02 | W.DCSUMMARY ---
Addendum entered and electronically signed by Beny Granados MD 04/10/24 16:01:
Read, reviewed, and agree. See same day progress note for additional details.
Total time spent on d/c = 33 min. This included today's physical exam, progress note, review of laboratory and diagnostic data, preparation of discharge documents and prescriptions, and discussions about the pt's hospital course and discharge plan
with the patient and other medical billing coordinator involved in the patient's care.
Original Note:
Discharge Summary
Discharge Data
Date of Admission: 04/09/24
Date of Discharge: 04/10/24
-
Pending Results: No
Hospital Course
Discharging Physician : Dr. Beny Granados, Dr. Leyla Callahan
Primary care physician : Dr. Bunny Landeros
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
Chronic Discharge diagnosis : Senile dementia, benign prostatic hyperplasia, prostate cancer treated with radiation therapy, hypertension, lai-[id number]-yswaytyrd diabetes mellitus, liver transplant post chronic hepatitis B liver cirrhosis
Hospital Course :
Patient is a sick 88-year-old male who was admitted to [facility] from -February, tested positive for COVID-19 and was discharged with Paxlovid course of 5 days.
The day after completing his Paxlovid course, patient presented with weakness and confusion to the emergency department on April 01, 2024 and had a serum creatinine of 1.6. The patient was treated as a case of acute kidney injury, Paxlovid was
stopped, tenofovir held and IV rehydration. Within a couple of days the patient was restarted on tenofovir as the patient's serum creatinine stabilized to 1. Tacrolimus was continued throughout as advised by gastroenterology as an
immunosuppressant for liver transplant. The patient was discharged on April 04, 2024 with tacrolimus and tenofovir resumed.
Patient presented again on April 08, 2024 as the tacrolimus levels were received from the sample drawn on April 01, 2024 to be 113. Another blood level was drawn at 11:30 PM in the emergency on April 08, 2024 that came back to be 2.7. Today
on April 10, 2024 the tacrolimus levels before the morning dose were sent and came out to be 3.3.
The gastroenterology reviewed the patient and decided to continue tacrolimus 1 mg twice daily.
Patient also had complaints of cough that was dry and had some swelling of the legs. The infectious disease department was consulted who reviewed the patient and did the whole workup including urine analysis, chest x-ray, COVID testing, influenza
testing, WBC charting, temperature charting, and rule out any infectious etiology of confusion.
The patient is stable and back to baseline from the medical point of view. The confusion that the patient is experiencing is most likely related to post-COVID sequelae and his dementia.
Important imaging findings :
ABDOMEN/PELVIS CT IMPRESSION:
There is mild intrahepatic and extra hepatic biliary ductal dilation with the common bile duct measuring 1.3 cm. This may be secondary to reservoir effect in the setting of prior cholecystectomy.
Markedly prostatomegaly with mild circumferential wall thickening of the urinary bladder which may be secondary to chronic outlet obstruction however cystitis could appear similar. Recommend correlation with urinalysis.
The pancreas is atrophic with prominence of the main pancreatic duct. There are numerous cystic lesions along the pancreas with the largest measuring 2.3 cm along the pancreatic head. Differential includes IPMN and pseudocysts. Further evaluation
with MRI abdomen is recommended.
CHEST X_RAY FINDINGS:
Lungs: Perihilar interstitial prominence with bibasilar opacities. No pleural effusion or pneumothorax.
Heart: Cardiac and mediastinal contours are unremarkable.
Osseous structures: No acute osseous abnormality. Cholecystectomy clips project over the right upper quadrant. Degenerative changes of the bilateral shoulders and thoracic spine
Discharge Plan
-
Patient Disposition: Home with Home Care
Discharge Diagnosis/Procedures: POST COVID SEQUELAE/ESSENTIAL TREMORS
Condition: Fair
Diet: As tolerated
Activity: As tolerated
Driving Restrictions: As prior to admission
Bathing Restrictions: OK to Shower
Other Services: VN
Referrals:
Bunny Landeros MD [Family Provider] -
Prescriptions:
Continued
donepezil 10 mg tablet
10 mg PO QPM
tamsulosin 0.4 mg capsule
0.8 mg PO QPM
tacrolimus 1 mg Capsule
1 mg PO DAILY
escitalopram oxalate 5 mg tablet
5 mg PO DAILY
loperamide [Anti-Diarrheal (loperamide)] 2 mg Tablet
2 mg PO DAILY
fexofenadine 180 mg Tablet
180 mg PO QPM
amlodipine 5 mg Tablet
5 mg PO DAILY Qty: 30 0RF
repaglinide 0.5 mg Tablet
0.5 mg PO MEALS Qty: 90 0RF
Vemlidy 25 mg tablet
25 mg PO DAILY Qty: 0 0RF
Discharge Orders:
Discharge Patient (As Directed); Ordered 04/10/24
Ordered By: Leyla Callahan
Discharge Date and Time
Print Language: PASHTO
[2024-04-10 15:15] VITALS: BP 119/61
--- NOTE | 2024-04-10 15:57 | CM ---
PT evaluated patient . PT said Home with VN.
Pt ambulated to BR with supervision.
LM with son Anjel [phone]. Son called LM Returned call to viridiana Hobbs .
Reviewed PT evals and reviewed MD said he was medically ready for dc
Son stated his father has been at [facility] recently and needs to speak with MD.
Son declined VN at dc.
Last admission son given senior care assistant list . Reminded son of this resource.
Resident and attending [place] text to call son concerning his father dc.
Return text from resident states son will come take pt home.
PLAN Home with son . Son declined VN
== END 2024-04-10 17:02 | disposition home or self-care (01) | DRG 193 ==
LOC: 4 EAST ACU 02:44
PROVIDERS: Hospitalist; Physician Assistant; ADMITTING PHYSICIAN Internal Medicine; ATTENDING PHYSICIAN Internal Medicine; CONSULT PHYSICIAN Internal Medicine Gastroenterology; CONSULT PHYSICIAN Internal Medicine Infectious Disease; EMERGENCY PHYSICIAN Emergency Medicine; FAMILY PHYSICIAN Family Medicine
DX: J18.9 Pneumonia, unspecified organism (principal); J12.82 Pneumonia due to coronavirus disease 2019; B18.1 Chronic viral hepatitis B without delta-agent; D84.821 Immunodeficiency due to drugs; N17.9 Acute kidney failure, unspecified; J98.11 Atelectasis; U09.9 Post COVID-19 condition, unspecified; E11.65 Type 2 diabetes mellitus with hyperglycemia; F03.90 Unspecified dementia, unspecified severity, without behavioral disturbance, psychotic disturbance, mood disturbance, and anxiety; K74.60 Unspecified cirrhosis of liver; G25.0 Essential tremor; I10 Essential (primary) hypertension
CPT/HCPCS: 51798; 71046; 74177; 80048; 80053; 80197; 81003; 82962; 83735; 84145; 85025; 85027; 87070; 87502; 87811; 96365; 96375; 97162; 99285; Q9967

== ENCOUNTER 2024-05-15 17:50 | Emergency (ER) | payer OTHER, SELFPAY ==
[2024-05-15 17:54] VITALS: BP 121/59
[2024-05-15 18:20] LABS: % Basophils 0.6 % (0-2); % Eosinophils 6.5 % (0-6); % Immature Granulocytes 0.3 % (0-0.5); % Lymphocytes 21.1 % (20.5-51.1); % Monocytes 7.3 % (1.7-9.3); % Neutrophils 64.2 % (42.2-75.2); Absolute Eosinophils 0.2 10^3/uL (0-0.7); Absolute Lymphocytes 0.8 10^3/uL (1.2-3.4); Absolute Monocytes 0.3 10^3/uL (0.1-0.6); Absolute Neutrophils 2.3 10^3/uL (1.4-6.5); Hematocrit 32.9 % (39.0-52.0); Hemoglobin 11.1 g/dL (13.0-18.0); Mean Corp Hgb Conc. 33.7 g/dL (33.0-37.0); Mean Corpuscular Hgb 30.9 pg (27.0-31.0); Mean Corpuscular Volume 91.6 fL (80.0-94.0); Mean Platelet Volume 9.1 fL (7.4-10.4); Nucleated Red Blood Cells % 0 % (-); Platelet Count 161 10^3/uL (130-400); Red Blood Cell Count 3.59 10^6/uL (4.70-6.10); Red Cell Dist. Width 13.3 % (11.5-14.5); White Blood Cell Count 3.6 10^3/uL (4.8-10.8)
[2024-05-15 18:31] LABS: ALT (SGPT) 23 U/L (0-50); AST (SGOT) 22 U/L (17-59); Albumin 3.8 g/dl (3.5-5.0); Alkaline Phosphatase 118 U/L (38-126); Blood Urea Nitrogen 20 mg/dl (9-20); Calcium 8.8 mg/dl (8.4-10.2); Carbon Dioxide 33 mmol/L (22-30); Chloride 101 mmol/L (98-107); Glucose 252 mg/dl (70-99); Potassium 4.7 mmol/L (3.5-5.1); Sodium 139 mmol/L (135-145); Total Bilirubin 0.5 mg/dl (0.2-1.3); Total Protein 6.5 g/dl (6.3-8.2); eGFR > 60.00
--- NOTE | 2024-05-15 20:34 | ED.GENMED ---
History of Present Illness
<Jan Tian Jr., PA-C - Last Filed: 05/15/24 22:23>
General
Chief Complaint: Change in Mental Status
Source: patient and family
Exam Limitations: dementia
Time Seen by Provider: 05/15/24 20:17
Nursing documentation reviewed up to this point in time: agreed with
History of Present Illness
History of Present Illness:
88-year-old male past medical history of dementia hypertension cirrhosis presenting to the emergency department today with concerns of confusion abdominal distention and some abdominal pain difficulty urinating over the past day or so. He denies
any specific symptoms but appears very confused on examination
Past History
<Jan Tian Jr., PA-C - Last Filed: 05/15/24 22:23>
Past History
ED Past Medical History: NIDDM, Psychiatric (dementia) and Other (cirrhosis, ?hepatitis)
ED Past Surgical History: Other (liver transplant)
Patient has exhibited threatening behavior?: No
PSI?: No
Social History
Tobacco: Non-smoker
Alcohol: Former
Drug: None
Personal: Single
Living: with family
Employment: Retired
Review of Systems
<Jan Tian Jr., PA-C - Last Filed: 05/15/24 22:23>
Review of Systems
Allergies reviewed?: Yes
All Other Systems: ROS reviewed and negative except as documented in HPI and ROS
Phy Exam
<Jan Tian Jr., PA-C - Last Filed: 05/15/24 22:23>
Physical Exam
Physical Exam:
GENERAL: Alert , in no apparent distress
EYE: pupils equal and reactive
NECK: Supple, no significant adenopathy.
ENT: o/p clr, mmm.
CARDIAC: Regular rate and rhythm .
LUNGS: Clear breath sounds bilaterally, no acute respiratory distress, no wheezes/rales/rhonchi
ABDOMEN: Mildly distended abdomen some vague discomfort throughout the abdomen but no specific focal pain.
NEUROLOGICAL: Alert and oriented, no focal neuro deficits
SKIN: Warm and dry, skin intact.
MUSCULOSKELETAL: No edema, well perfused.
PSYCH: Normal and appropriate interaction.
Course
<Jan Tian Jr., PA-C - Last Filed: 05/15/24 22:23>
Orders/Labs/Results
Orders:
Orders
05/15/24 18:03
Complete Blood Count/With Diff Urgent
Comprehensive Metabolic Panel Urgent
05/15/24 20:33
EKG [Electrocardiogram (*1)] Urgent
Reason for Study: Fatigue / Weakness
CT Abd/Pel (IV only)-DH only Urgent
Comment:
Reason For Exam: abd pain distension
EKG- Treatment ONCE
Straight cath- Treatment ONCE
05/15/24 21:33
0.9% Sodium Chloride 500 ml [Nss] 500 ml IV BOLUS
05/15/24 22:03
Urinalysis Reflex To Culture Urgent
Date Specimen was Collected: 05/15/24
Time Specimen was Collected: 17:57
05/15/24 23:04
Cephalexin Monohydrate [Keflex] 500 mg PO NOW STA
Abnormal Lab Results
05/15/24 05/15/24
18:03 22:03
WBC 3.6 L 10^3/uL
(4.8-10.8)
RBC 3.59 L 10^6/uL
(4.70-6.10)
Hgb 11.1 L g/dL
(13.0-18.0)
Hct 32.9 L %
(39.0-52.0)
Absolute Lymphs (auto) 0.8 L 10^3/uL
(1.2-3.4)
Eosinophils % 6.5 H %
(0-6)
Carbon Dioxide 33 H mmol/L
(22-30)
Glucose 252 H mg/dl
(70-99)
Urine Glucose 2+ A
(Negative)
05/15/24 18:03
05/15/24 18:03
Vital Signs
Initial and Last Documented VS:
Initial Vital Signs
Temp Pulse Resp BP Pulse Ox
98.9 F 63 19 121/59 96
05/15/24 17:54 05/15/24 17:54 05/15/24 17:54 05/15/24 17:54 05/15/24 17:54
Last Documented Vital Signs
Temp Pulse Resp BP Pulse Ox
98.9 F 67 19 118/58 95
05/15/24 17:54 05/15/24 21:12 05/15/24 21:12 05/15/24 21:12 05/15/24 21:12
<Jose Maria Ramirez, DO - Last Filed: 05/15/24 23:05>
Orders/Labs/Results
Orders:
Orders
05/15/24 18:03
Complete Blood Count/With Diff Urgent
Comprehensive Metabolic Panel Urgent
05/15/24 20:33
EKG [Electrocardiogram (*1)] Urgent
Reason for Study: Fatigue / Weakness
CT Abd/Pel (IV only)-DH only Urgent
Comment:
Reason For Exam: abd pain distension
EKG- Treatment ONCE
Straight cath- Treatment ONCE
05/15/24 21:33
0.9% Sodium Chloride 500 ml [Nss] 500 ml IV BOLUS
05/15/24 22:03
Urinalysis Reflex To Culture Urgent
Date Specimen was Collected: 05/15/24
Time Specimen was Collected: 17:57
05/15/24 23:04
Cephalexin Monohydrate [Keflex] 500 mg PO NOW STA
Abnormal Lab Results
05/15/24 05/15/24
18:03 22:03
WBC 3.6 L 10^3/uL
(4.8-10.8)
RBC 3.59 L 10^6/uL
(4.70-6.10)
Hgb 11.1 L g/dL
(13.0-18.0)
Hct 32.9 L %
(39.0-52.0)
Absolute Lymphs (auto) 0.8 L 10^3/uL
(1.2-3.4)
Eosinophils % 6.5 H %
(0-6)
Carbon Dioxide 33 H mmol/L
(22-30)
Glucose 252 H mg/dl
(70-99)
Urine Glucose 2+ A
(Negative)
05/15/24 18:03
05/15/24 18:03
Vital Signs
Initial and Last Documented VS:
Initial Vital Signs
Temp Pulse Resp BP Pulse Ox
98.9 F 63 19 121/59 96
05/15/24 17:54 05/15/24 17:54 05/15/24 17:54 05/15/24 17:54 05/15/24 17:54
Last Documented Vital Signs
Temp Pulse Resp BP Pulse Ox
98.9 F 67 19 118/58 95
05/15/24 17:54 05/15/24 21:12 05/15/24 21:12 05/15/24 21:12 05/15/24 21:12
<Jan Tian Jr., PA-C - Last Filed: 05/15/24 22:23>
MDM/Problems Addressed
MDM/Problems Addressed:
88-year-old male presenting to the emergency department today with concerns of worsening confusion in the setting of chronic dementia has been frequently walking to the bathroom but not able to go to the bathroom while there. Has been having some
vague abdominal discomfort and distention as well. Family denies any significant changes in bowel movements. He does have some additional trouble with urination as well. Here labs showing elevated sugar level but no evidence of DKA. Other labs
unremarkable.
<Jose Maria Ramirez DO - Last Filed: 05/15/24 23:05>
*Critical Care Note
Total Time (30-74mins, 75-104mins- exclusive of procedures): Not Applicable
ED Attending Note
<OLIVER Cruz Jr.-Alana - Last Filed: 05/15/24 22:23>
-
Portions of this chart may have been created with voice recognition software.� Occasional wrong word or��sound alike� substitutions may have occurred due to the inherent limitations of voice recognition software.
<Jose Maria Ramirez DO - Last Filed: 05/15/24 23:05>
ED Attending Note
Patient seen and examined by attending physician: Yes
I performed the substantive portion of visit, reviewed & personally made and approve the management plan that is documented in note by myself or ALICIA.: Yes
ED Attending Note:
Seen with PA examined independently nontoxic male CAT scan noted urine noted culture pending
Discharge Plan
Departure
Patient Disposition: Home (Routine Discharge)
Date of Disposition: 05/15/24
Time of Disposition: 22:56
Patient with high blood pressure during this ER visit?: No
Condition: Good
Covid-19: Not Applicable
Discharge Problem:
Cystitis
Instructions: Altered Mental Status (DC), Urinary Tract Infection, Adult ED
Prescriptions:
New
cephalexin 500 mg capsule
500 mg PO BID 7 Days Qty: 14 0RF
No Action
donepezil 10 mg tablet
10 mg PO QPM
tamsulosin 0.4 mg capsule
0.8 mg PO QPM
tacrolimus 1 mg Capsule
1 mg PO DAILY
escitalopram oxalate 5 mg tablet
5 mg PO DAILY
loperamide [Anti-Diarrheal (loperamide)] 2 mg Tablet
2 mg PO DAILY
fexofenadine 180 mg Tablet
180 mg PO QPM
amlodipine 5 mg Tablet
5 mg PO DAILY Qty: 30 0RF
repaglinide 0.5 mg Tablet
0.5 mg PO MEALS Qty: 90 0RF
Vemlidy 25 mg tablet
25 mg PO DAILY Qty: 0 0RF
Referrals:
Bunny Landeros MD [Family Provider] -
Activity Restrictions/Additional Instructions:
You came to the emergency department today with altered mental status. You may have a urinary tract infection. Please take Keflex twice daily for the neck 7 days and follow-up closely with the primary care doctor within 1 week. Return to the
emergency department for any worsening, new or concerning symptoms.
Interventions
Interventions:
*Risk Screen - Suicide Last Done: 05/15/24 20:22
*General Assessment Last Done: 05/15/24 21:12
*Neglect/Abuse Screening Last Done: 05/15/24 20:22
ED- Fall Risk Assessment Last Done: 05/15/24 21:12
*ED COVID-19 Vaccine History Last Done: 05/15/24 20:22
ED- Neurological Assessment Last Done: 05/15/24 21:12
Discharge Date and Time
Print Language: CENTRAL AFRICAN
[2024-05-15 21:12] VITALS: BP 118/58; BMI 22.5
[2024-05-15 22:35] LABS: Urine Albumin Trace (Neg - Trace); Urine Bilirubin Negative (Negative); Urine Character Clear (Clear); Urine Color Straw; Urine Glucose 2+ (Negative); Urine Ketone Negative (Negative); Urine Leukocyte Negative (Negative); Urine Nitrite Negative (Negative); Urine Occult Blood Negative (Negative); Urine Specific Gravity 1.005 (<1.030); Urine Urobilinogen Negative (Neg - 1+)
[2024-05-15] MEDS: KEFLEX 500 MG PO (23:23)
[2024-05-15 23:28] VITALS: BP 134/68
== END 2024-05-15 23:32 | disposition home or self-care (01) ==
LOC: EMR 17:50
PROVIDERS: Emergency Medicine; EMERGENCY PHYSICIAN Emergency Medicine; FAMILY PHYSICIAN Family Medicine
DX: N30.90 Cystitis, unspecified without hematuria (principal); R41.82 Altered mental status, unspecified; F03.90 Unspecified dementia, unspecified severity, without behavioral disturbance, psychotic disturbance, mood disturbance, and anxiety; I10 Essential (primary) hypertension; E11.9 Type 2 diabetes mellitus without complications; K74.60 Unspecified cirrhosis of liver; Z94.4 Liver transplant status
CPT/HCPCS: 99284; 96360; 74177; 80053; 81003; 85025; 93005; Q9967

== ENCOUNTER 2024-07-09 18:51 | Emergency (ER) | payer OTHER, SELFPAY ==
[2024-07-09 18:59] VITALS: BP 158/87
[2024-07-09 19:22] LABS: % Basophils 0.3 % (0-2); % Eosinophils 2.9 % (0-6); % Immature Granulocytes 1.1 % (0-0.5); % Lymphocytes 11.1 % (20.5-51.1); % Monocytes 6.5 % (1.7-9.3); % Neutrophils 78.1 % (42.2-75.2); Absolute Eosinophils 0.2 10^3/uL (0-0.7); Absolute Immature Granulocytes 0.1 10^3/uL (0-0.05); Absolute Lymphocytes 0.7 10^3/uL (1.2-3.4); Absolute Monocytes 0.4 10^3/uL (0.1-0.6); Absolute Neutrophils 5.2 10^3/uL (1.4-6.5); Hematocrit 38.5 % (39.0-52.0); Mean Corp Hgb Conc. 33.8 g/dL (33.0-37.0); Mean Corpuscular Hgb 29.3 pg (27.0-31.0); Mean Corpuscular Volume 86.7 fL (80.0-94.0); Mean Platelet Volume 8.9 fL (7.4-10.4); Nucleated Red Blood Cells % 0 % (-); Platelet Count 167 10^3/uL (130-400); Red Blood Cell Count 4.44 10^6/uL (4.70-6.10); Red Cell Dist. Width 12.8 % (11.5-14.5); White Blood Cell Count 6.7 10^3/uL (4.8-10.8)
[2024-07-09 19:37] LABS: ALT (SGPT) 31 U/L (0-50); AST (SGOT) 25 U/L (17-59); Albumin 4.1 g/dl (3.5-5.0); Alkaline Phosphatase 124 U/L (38-126); Blood Urea Nitrogen 14 mg/dl (9-20); Calcium 8.9 mg/dl (8.4-10.2); Carbon Dioxide 33 mmol/L (22-30); Chloride 97 mmol/L (98-107); Glucose 275 mg/dl (70-99); Potassium 4.2 mmol/L (3.5-5.1); Sodium 137 mmol/L (135-145); Total Bilirubin 0.6 mg/dl (0.2-1.3); eGFR > 60.00
--- NOTE | 2024-07-09 19:43 | ED.GENMED ---
History of Present Illness
General
Chief Complaint: Change in Mental Status
Source: patient and family (daughter in law at bedside)
Exam Limitations: dementia
Time Seen by Provider: 07/09/24 19:42
History of Present Illness
History of Present Illness:
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 Daughter in law at bedside witnessed the fall.
Around 4 p.m. pt stumbled over a TV stand, fell onto carpeted floor. Denies head injury. Has complained of back pain since, she states.
Pt points to left mid to lower ribs to identify pain. He denies back pain. Points to both lower rib areas 'hurts.'
Family member states he's been 'off' past couple days. He does have dementia and has good days and bad days but seems more confused past couple days.
Past History
Past History
ED Past Medical History: NIDDM, Psychiatric (dementia) and Other (cirrhosis, ?hepatitis)
ED Past Surgical History: Other (liver transplant)
Patient has exhibited threatening behavior?: No
PSI?: No
Social History
Tobacco: Non-smoker
Alcohol: Former
Drug: None
Personal: Single
Living: with family
Employment: Retired
Review of Systems
Review of Systems
Allergies reviewed?: Yes
All Other Systems: ROS reviewed and negative except as documented in HPI and ROS
Constitutional: Denies fever
Respiratory: Denies trouble breathing
Cardiac: Denies chest pain
ABD/GI: Denies abdominal pain
Musculoskeletal: Reports other (pain right mid to lower ribs); Denies neck pain or back pain
Skin: Reports other (well healed mid abdominal scar)
Neurological: Reports no symptoms
Phy Exam
Physical Exam
Physical Exam:
GENERAL: No acute distress. A&Ox3.
CONSTITUTIONAL: Afebrile.
EYES: clear, conjunctivae normal
ENMT: moist mucus membranes, Pharynx nl
RESPIRATORY: Regular respirations, nonlabored, lungs clear.
CARDIOVASCULAR: Regular rate and rhythm, no murmurs, no rubs.
GI: Soft, nontender, normal BS
MUSCULOSKELETAL: Moves with ease. Well perfused. Full ROM to rotation of torso and forward flexion of spine. No spinal bony tenderness. No back ST tenderness. Tender to palpate left mid to lower anterior ribs.
SKIN: Warm, dry, pink
PSYCH: Normal mood and affect. Well kept, interactive and appropriate
NEUROLOGIC: Awake, alert and oriented. No focal neurological deficits
Course
Orders/Labs/Results
Orders:
Orders
07/09/24 19:04
CT Head W/o Iv Contrast Urgent
Comment:
Reason For Exam: FALL; INCREASED CONFUSION +DEMENTIA
07/09/24 19:07
Complete Blood Count/With Diff Urgent
Comprehensive Metabolic Panel Urgent
Glycohemoglobin (HgbA1c) Urgent
07/09/24 19:53
Ribs, Left 3 View W/PA Chest CR [CR Ribs-left 3 Vw W/pa Chest] Urgent
Comment:
Reason For Exam: pain L lower ribs post fall
07/09/24 20:00
Urinalysis Reflex To Culture Urgent
Date Specimen was Collected: 07/09/24
Time Specimen was Collected: 19:59
Urine Microscopic Reflex Cult Urgent
07/09/24 20:43
Add On- LAB Urgent
Tests Added?: A1C
Abnormal Lab Results
07/09/24 07/09/24
19:07 20:00
RBC 4.44 L 10^6/uL
(4.70-6.10)
Hct 38.5 L %
(39.0-52.0)
Abs Immat Gran (auto) 0.1 H 10^3/uL
(0-0.05)
Absolute Lymphs (auto) 0.7 L 10^3/uL
(1.2-3.4)
Immature Gran % 1.1 H %
(0-0.5)
Neutrophils % 78.1 H %
(42.2-75.2)
Lymphocytes % 11.1 L %
(20.5-51.1)
Chloride 97 L mmol/L
(98-107)
Carbon Dioxide 33 H mmol/L
(22-30)
Glucose 275 H mg/dl
(70-99)
Hemoglobin A1c 8.0 H %
(4.0-5.6)
Ur Occult Blood Reflex Trace A
(Negative)
Urine Bacteria (Reflex) Few A
(Negative)
Urine Glucose 3+ A
(Negative)
Urine Albumin (Reflex) 1+ A
(Neg - Trace)
07/09/24 19:07
07/09/24 19:07
Vital Signs
Initial and Last Documented VS:
Initial Vital Signs
Temp Pulse Resp BP Pulse Ox
97.2 F 70 20 158/87 96
07/09/24 18:59 07/09/24 18:59 07/09/24 18:59 07/09/24 18:59 07/09/24 18:59
Last Documented Vital Signs
Temp Pulse Resp BP Pulse Ox
97.2 F 68 17 134/75 95
07/09/24 18:59 07/09/24 20:14 07/09/24 20:14 07/09/24 21:00 07/09/24 21:15
MDM/Problems Addressed
Differential Diagnosis Includes:
rib fracture, contusion
UTI
advancing dementia
MDM/Problems Addressed:
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 Daughter in law at bedside witnessed the fall.
Around 4 p.m. pt stumbled over a TV stand, fell onto carpeted floor. Denies head injury. Has complained of back pain since, she states.
Pt points to left mid to lower ribs to identify pain. He denies back pain. Points to both lower rib areas 'hurts.'
Family member states he's been 'off' past couple days. He does have dementia and has good days and bad days but seems more confused past couple days.
Afebrile
CBC normal
CMP unremarkable save for glucose 275. Family states PCP took him off diabetes medications. Will order A1C and have him f/u with PCP
U/A neg
Ribs: neg for fracture.
OOB and ambulating well. Stable for discharge to care of family
*Critical Care Note
Total Time (30-74mins, 75-104mins- exclusive of procedures): Not Applicable
ED Attending Note
-
Portions of this chart may have been created with voice recognition software.� Occasional wrong word or��sound alike� substitutions may have occurred due to the inherent limitations of voice recognition software.
Discharge Plan
Departure
Patient Disposition: Home (Routine Discharge)
Date of Disposition: 07/09/24
Time of Disposition: 21:14
Patient with high blood pressure during this ER visit?: No
Condition: Fair
Discharge Problem:
Fall from slip, trip, or stumble, Dementia, Bruised ribs
Instructions: Dementia (DC), High blood sugar in adults - ED discharge instructions, Rib fracture or bruised rib - ED discharge instructions
Prescriptions:
No Action
donepezil 10 mg tablet
10 mg PO QPM
tamsulosin 0.4 mg capsule
0.8 mg PO QPM
tacrolimus 1 mg Capsule
1 mg PO DAILY
escitalopram oxalate 5 mg tablet
5 mg PO DAILY
loperamide [Anti-Diarrheal (loperamide)] 2 mg Tablet
2 mg PO DAILY
fexofenadine 180 mg Tablet
180 mg PO QPM
amlodipine 5 mg Tablet
5 mg PO DAILY Qty: 30 0RF
repaglinide 0.5 mg Tablet
0.5 mg PO MEALS Qty: 90 0RF
Vemlidy 25 mg tablet
25 mg PO DAILY Qty: 0 0RF
cephalexin 500 mg capsule
500 mg PO BID 7 Days Qty: 14 0RF
Referrals:
Bunny Landeros MD [Family Provider] - Call in 1-3 days for appt
Activity Restrictions/Additional Instructions:
As we discussed, there is no urine infection, no rib fracture.
There may be some advancing dementia
Blood sugar was 275.
Please discuss findings with your doctor sometime this week.
The Hemoglobin A1C is ordered and your doctor can see the results tomorrow or you can get it on the patient portal.
Interventions
Interventions:
*Risk Screen - Suicide Last Done: 07/09/24 20:01
*General Assessment Last Done: 07/09/24 20:01
*Neglect/Abuse Screening Last Done: 07/09/24 20:01
*ED COVID-19 Vaccine History Last Done: 07/09/24 20:01
*Nursing Disposition Last Done: 07/09/24 21:56
ED-Skin Assessment Last Done: 07/09/24 20:03
ED- Pulmonary Assessment Last Done: 07/09/24 20:03
ED- Neurological Assessment Last Done: 07/09/24 20:03
ED-Musculoskeletal Assessment Last Done: 07/09/24 20:03
ED- Cardiac Assessment Last Done: 07/09/24 20:03
ED Swallowing Screen Last Done: 07/09/24 20:03
Discharge Date and Time
Discharge Date/Time: 07/09/24 21:56
Print Language: MAORI
[2024-07-09 20:00] VITALS: BP 153/83
[2024-07-09 20:09] LABS: Urine Albumin 1+ (Neg - Trace); Urine Bilirubin Negative (Negative); Urine Character Clear (Clear); Urine Color Yellow; Urine Glucose 3+ (Negative); Urine Ketone Negative (Negative); Urine Leukocyte Negative (Negative); Urine Nitrite Negative (Negative); Urine Occult Blood Trace (Negative); Urine Specific Gravity 1.025 (<1.030); Urine Urobilinogen Negative (Neg - 1+)
[2024-07-09 20:28] LABS: Urine Bacteria Few (Negative); Urine Red Blood Cell 0-2 /HPF (0-2); Urine White Cell 0-2 /HPF (0-5)
[2024-07-09 20:50] VITALS: BP 128/78
[2024-07-09 21:00] VITALS: BP 134/75
== END 2024-07-09 21:56 | disposition home or self-care (01) ==
LOC: EMR 18:51
PROVIDERS: Emergency Medicine; Registered Nurse; EMERGENCY PHYSICIAN Student in an Organized Health Care Education/Training Program; FAMILY PHYSICIAN Family Medicine
DX: S20.212A Contusion of left front wall of thorax, initial encounter (principal); W18.09XA Striking against other object with subsequent fall, initial encounter; F03.90 Unspecified dementia, unspecified severity, without behavioral disturbance, psychotic disturbance, mood disturbance, and anxiety; E11.9 Type 2 diabetes mellitus without complications; I10 Essential (primary) hypertension; Z94.4 Liver transplant status; Z85.46 Personal history of malignant neoplasm of prostate
CPT/HCPCS: 99284; 70450; 71101; 80053; 81003; 81015; 83036; 85025

== ENCOUNTER 2024-07-13 16:16 | Emergency (ER) | payer OTHER, SELFPAY ==
[2024-07-13 16:16] VITALS: BMI 21.5
[2024-07-13 16:33] VITALS: BP 152/81
[2024-07-13 17:11] LABS: % Basophils 0.2 % (0-2); % Eosinophils 5.1 % (0-6); % Immature Granulocytes 0.4 % (0-0.5); % Lymphocytes 14.5 % (20.5-51.1); % Monocytes 6.9 % (1.7-9.3); % Neutrophils 72.9 % (42.2-75.2); Absolute Eosinophils 0.2 10^3/uL (0-0.7); Absolute Lymphocytes 0.7 10^3/uL (1.2-3.4); Absolute Monocytes 0.3 10^3/uL (0.1-0.6); Absolute Neutrophils 3.3 10^3/uL (1.4-6.5); Hematocrit 37.5 % (39.0-52.0); Hemoglobin 12.7 g/dL (13.0-18.0); Mean Corp Hgb Conc. 33.9 g/dL (33.0-37.0); Mean Corpuscular Hgb 29.3 pg (27.0-31.0); Mean Corpuscular Volume 86.4 fL (80.0-94.0); Mean Platelet Volume 9.3 fL (7.4-10.4); Nucleated Red Blood Cells % 0 % (-); Platelet Count 160 10^3/uL (130-400); Red Blood Cell Count 4.34 10^6/uL (4.70-6.10); Red Cell Dist. Width 12.7 % (11.5-14.5); White Blood Cell Count 4.5 10^3/uL (4.8-10.8)
[2024-07-13 17:25] LABS: ALT (SGPT) 23 U/L (0-50); AST (SGOT) 23 U/L (17-59); Albumin 4.2 g/dl (3.5-5.0); Alkaline Phosphatase 140 U/L (38-126); Blood Urea Nitrogen 16 mg/dl (9-20); Calcium 9.1 mg/dl (8.4-10.2); Carbon Dioxide 29 mmol/L (22-30); Chloride 98 mmol/L (98-107); Glucose 257 mg/dl (70-99); Potassium 4.3 mmol/L (3.5-5.1); Sodium 136 mmol/L (135-145); Total Bilirubin 0.6 mg/dl (0.2-1.3); Total Protein 7.2 g/dl (6.3-8.2); eGFR > 60.00
--- NOTE | 2024-07-13 21:59 | ED.GENMED ---
History of Present Illness
<Jose Maria Ramirez DO - Last Filed: 07/13/24 22:02>
General
Chief Complaint: Abdominal Symptoms
Source: patient, records and family
Exam Limitations: dementia
Time Seen by Provider: 07/13/24 21:38
History of Present Illness
History of Present Illness:
88-year-old male with distant history of liver transplant at [facility] presents for bruising of his left flank he fell a couple days ago seen in the ER to CAT scan blood work urine chest x-ray discharged home visiting nurse noted some bruising and
swelling of his abdomen referred here for evaluation patient appears to be at his baseline demented confused self is coughing a bit but no fevers
Past History
<Jose Maria Ramirez DO - Last Filed: 07/13/24 22:02>
Past History
ED Past Medical History: NIDDM, Psychiatric (dementia) and Other (cirrhosis, ?hepatitis)
ED Past Surgical History: Other (liver transplant)
Patient has exhibited threatening behavior?: No
PSI?: No
Social History
Tobacco: Non-smoker
Alcohol: Former
Drug: None
Personal: Single
Living: with family
Employment: Retired
Review of Systems
<Jose Maria Ramirez DO - Last Filed: 07/13/24 22:02>
Review of Systems
Unable to obtain full review of systems at this time due to: dementia
Other source history: family
All Other Systems: Not applicable
Skin: Reports other (Bruising in the left lower flank)
Phy Exam
<Jose Maria Ramirez DO - Last Filed: 07/13/24 22:02>
Physical Exam
Physical Exam:
Physical Exam
General: no apparent distress, not acutely ill
Neck: No jaundice
Heart: s1/s2 regular rate and rhythm, no murmur. equal radial pulses.
Lungs: no acute respiratory distress. clear bilaterally
Abdomen: Bruising to left flank
Neuro: Demented moves all extremities
Skin: Described above
Psychiatric: Cooperative
Extremities: no edema.
Course
<Jose Maria Ramirez, DO - Last Filed: 07/13/24 22:02>
Orders/Labs/Results
Orders:
Orders
07/13/24 16:54
Complete Blood Count/With Diff Urgent
Comprehensive Metabolic Panel Urgent
07/13/24 21:57
CT Abd/pelvis W Iv Cont Urgent
Comment:
Reason For Exam: fall left flank bruise
CR Chest - 2 Views Urgent
Comment:
Reason For Exam: cough
Abnormal Lab Results
07/13/24
16:54
WBC 4.5 L 10^3/uL
(4.8-10.8)
RBC 4.34 L 10^6/uL
(4.70-6.10)
Hgb 12.7 L g/dL
(13.0-18.0)
Hct 37.5 L %
(39.0-52.0)
Absolute Lymphs (auto) 0.7 L 10^3/uL
(1.2-3.4)
Lymphocytes % 14.5 L %
(20.5-51.1)
Glucose 257 H mg/dl
(70-99)
Alkaline Phosphatase 140 H U/L
(38-126)
07/13/24 16:54
07/13/24 16:54
Vital Signs
Initial and Last Documented VS:
Initial Vital Signs
Temp Pulse Resp BP Pulse Ox
99.1 F 80 18 152/81 95
07/13/24 16:33 07/13/24 16:33 07/13/24 16:33 07/13/24 16:33 07/13/24 16:33
Last Documented Vital Signs
Temp Pulse Resp BP Pulse Ox
99.1 F 80 18 148/82 97
07/13/24 16:33 07/13/24 16:33 07/13/24 16:33 07/13/24 23:09 07/13/24 23:52
<Nahun Craig PA-C - Last Filed: 07/14/24 00:33>
Orders/Labs/Results
Orders:
Orders
07/13/24 16:54
Complete Blood Count/With Diff Urgent
Comprehensive Metabolic Panel Urgent
07/13/24 21:57
CT Abd/pelvis W Iv Cont Urgent
Comment:
Reason For Exam: fall left flank bruise
CR Chest - 2 Views Urgent
Comment:
Reason For Exam: cough
Abnormal Lab Results
07/13/24
16:54
WBC 4.5 L 10^3/uL
(4.8-10.8)
RBC 4.34 L 10^6/uL
(4.70-6.10)
Hgb 12.7 L g/dL
(13.0-18.0)
Hct 37.5 L %
(39.0-52.0)
Absolute Lymphs (auto) 0.7 L 10^3/uL
(1.2-3.4)
Lymphocytes % 14.5 L %
(20.5-51.1)
Glucose 257 H mg/dl
(70-99)
Alkaline Phosphatase 140 H U/L
(38-126)
07/13/24 16:54
07/13/24 16:54
Vital Signs
Initial and Last Documented VS:
Initial Vital Signs
Temp Pulse Resp BP Pulse Ox
99.1 F 80 18 152/81 95
07/13/24 16:33 07/13/24 16:33 07/13/24 16:33 07/13/24 16:33 07/13/24 16:33
Last Documented Vital Signs
Temp Pulse Resp BP Pulse Ox
99.1 F 80 18 148/82 97
07/13/24 16:33 07/13/24 16:33 07/13/24 16:33 07/13/24 23:09 07/13/24 23:52
<Jose Maria Ramirez DO - Last Filed: 07/13/24 22:02>
MDM/Problems Addressed
Differential Diagnosis Includes:
Bruising from fall retroperitoneal bleed contusion cough pneumonia Ha
MDM/Problems Addressed:
Fall bruising
Chronic conditions affecting care:
Liver transplant
Acute Exacerbation and/or Progression of Chronic Illness:
Liver trans
<Jose Maria Ramirez DO - Last Filed: 07/13/24 22:02>
*Radiology
Radiology exam reviewed: radiology read reviewed
*Pulse Oximetry
Patient hypoxic: no
*Critical Care Note
Total Time (30-74mins, 75-104mins- exclusive of procedures): Not Applicable
<Nahun Craig PA-C - Last Filed: 07/14/24 00:33>
Patient Management
Escalation/DeEscalation of care consider admission/obs:
Patient received in signout pending CT scan results. There is a small amount of subcutaneous fat stranding and free fluid over the left flank which correlates with the area of patient's ecchymosis. No acute intra-abdominal injury. Chronic
findings noted. Patient remains hemodynamically stable, stating continuously he wants to be discharged home. Family requesting case management consult as they feel patient needs more care that they are not able to provide on their own. Will order
case management consult for them to contact the family in the morning.
<Jose Maria Ramirez DO - Last Filed: 07/13/24 22:02>
Update Note
Update Note:
Update labs are noted labs from a couple days ago are noted, will check CT scan of the abdomen rule rule out retroperitoneal bleed, also chest x-ray due to cough
ED Attending Note
<Jose Maria Ramirez, DO - Last Filed: 07/13/24 22:02>
-
Portions of this chart may have been created with voice recognition software.� Occasional wrong word or��sound alike� substitutions may have occurred due to the inherent limitations of voice recognition software.
Discharge Plan
Departure
Patient Disposition: Home (Routine Discharge)
Date of Disposition: 07/14/24
Time of Disposition: 00:05
Patient with high blood pressure during this ER visit?: Yes
Discharge Problem:
Accidental fall, Superficial bruising of abdominal wall
Instructions: Fall Prevention for Older Adults
Prescriptions:
No Action
donepezil 10 mg tablet
10 mg PO QPM
tamsulosin 0.4 mg capsule
0.8 mg PO QPM
tacrolimus 1 mg Capsule
1 mg PO DAILY
escitalopram oxalate 5 mg tablet
5 mg PO DAILY
loperamide [Anti-Diarrheal (loperamide)] 2 mg Tablet
2 mg PO DAILY
fexofenadine 180 mg Tablet
180 mg PO QPM
amlodipine 5 mg Tablet
5 mg PO DAILY Qty: 30 0RF
repaglinide 0.5 mg Tablet
0.5 mg PO MEALS Qty: 90 0RF
Vemlidy 25 mg tablet
25 mg PO DAILY Qty: 0 0RF
cephalexin 500 mg capsule
500 mg PO BID 7 Days Qty: 14 0RF
Referrals:
Bunny Landeros MD [Family Provider] -
Interventions
Interventions:
*Risk Screen - Suicide Last Done: 07/13/24 16:33
*General Assessment Last Done: 07/13/24 16:33
*ED COVID-19 Vaccine History Last Done: 07/13/24 16:33
*Nursing Disposition Last Done: 07/14/24 00:26
VU-Lilwju-Nbrsthqvwq Assessment Last Done: 07/13/24 22:41
Discharge Date and Time
Discharge Date/Time: 07/14/24 00:27
Print Language: YAKUT
[2024-07-13 23:09] VITALS: BP 148/82
--- NOTE | 2024-07-14 12:40 | CM ---
CM was consulted to discuss additional home care options. CM left message on patient's daughter's phone. CM will await call back.
== END 2024-07-14 00:27 | disposition home or self-care (01) ==
LOC: EMR 16:16
PROVIDERS: Emergency Medicine; EMERGENCY PHYSICIAN Emergency Medicine; FAMILY PHYSICIAN Family Medicine
DX: S30.1XXA Contusion of abdominal wall, initial encounter (principal); W19.XXXA Unspecified fall, initial encounter; F03.90 Unspecified dementia, unspecified severity, without behavioral disturbance, psychotic disturbance, mood disturbance, and anxiety; E11.9 Type 2 diabetes mellitus without complications; Z94.4 Liver transplant status
CPT/HCPCS: 99284; 71046; 74177; 80053; 85025; Q9967

== ENCOUNTER 2024-07-30 01:24 | Observation (INO) | payer OTHER, SELFPAY ==
[2024-07-29 20:11] VITALS: BP 166/84
[2024-07-29 20:47] LABS: % Basophils 0.5 % (0-2); % Eosinophils 5.4 % (0-6); % Immature Granulocytes 0.5 % (0-0.5); % Lymphocytes 16.3 % (20.5-51.1); % Monocytes 7.5 % (1.7-9.3); % Neutrophils 69.8 % (42.2-75.2); Absolute Eosinophils 0.2 10^3/uL (0-0.7); Absolute Lymphocytes 0.7 10^3/uL (1.2-3.4); Absolute Monocytes 0.3 10^3/uL (0.1-0.6); Absolute Neutrophils 2.9 10^3/uL (1.4-6.5); Hematocrit 35.9 % (39.0-52.0); Hemoglobin 12.2 g/dL (13.0-18.0); Mean Corpuscular Hgb 29.4 pg (27.0-31.0); Mean Corpuscular Volume 86.5 fL (80.0-94.0); Nucleated Red Blood Cells % 0 % (-); Platelet Count 174 10^3/uL (130-400); Red Blood Cell Count 4.15 10^6/uL (4.70-6.10); Red Cell Dist. Width 12.8 % (11.5-14.5); White Blood Cell Count 4.1 10^3/uL (4.8-10.8)
[2024-07-29 21:00] LABS: ALT (SGPT) 19 U/L (0-50); AST (SGOT) 21 U/L (17-59); Albumin 4.2 g/dl (3.5-5.0); Alkaline Phosphatase 193 U/L (38-126); Blood Urea Nitrogen 13 mg/dl (9-20); Carbon Dioxide 33 mmol/L (22-30); Chloride 98 mmol/L (98-107); Glucose 158 mg/dl (70-99); Potassium 3.9 mmol/L (3.5-5.1); Sodium 136 mmol/L (135-145); Total Bilirubin 1.1 mg/dl (0.2-1.3); Total Protein 6.8 g/dl (6.3-8.2); eGFR > 60.00
[2024-07-29 21:16] LABS: Urine Albumin 2+ (Neg - Trace); Urine Bilirubin Negative (Negative); Urine Character Clear (Clear); Urine Color Yellow; Urine Glucose 1+ (Negative); Urine Ketone Negative (Negative); Urine Leukocyte Negative (Negative); Urine Nitrite Negative (Negative); Urine Occult Blood 1+ (Negative); Urine Specific Gravity 1.015 (<1.030); Urine Urobilinogen Negative (Neg - 1+)
[2024-07-29 21:36] LABS: Urine White Cell 0-2 /HPF (0-5)
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
[2024-07-29 22:00] VITALS: BP 124/69
[2024-07-29 23:00] VITALS: BP 157/90
[2024-07-30] VITALS: BP 140/81
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
--- NOTE | 2024-07-30 00:53 | EDRN ---
Family left Vemlidy for pt as they said the pharmacy here does not have it. Called pharmacy and was asked to tube it down to them however tube system is out of service. control technician brought something up to ED, this RN handed the bottle of Vemlidy
(original bottle with pt's information on it from [facility]) to pharmacy helper who will take it back down with her to pharmacy.
[2024-07-30 01:00] VITALS: BP 145/84
--- NOTE | 2024-07-30 01:19 | EDRN ---
Pt awake, walking around room. Pt asked for time, explained to pt time of day and where he is multiple times. Pt smiling, cooperative. Pt kept repeating 'I woke up and this was not my house.' Explained to pt he will be sleeping in ED bed
tonight, showed pt the bathroom. Pt does not want lights turned off.
--- NOTE | 2024-07-30 01:50 | EDRN ---
Pt came out to nurse's station and conversed with this RN. Pt remains confused, pleasant. Discussed when and why he came in again, what time of day it is 'I woke up I lost my house.' pt repeated. Pt used the restroom. Pt has been exploring room,
looking in linen cabinet and is now holding the call freedman to his ear like a telephone while waving at staff.
[2024-07-30] MEDS: ATIVAN 0.5 MG PO ×2 (02:10→21:07)
[2024-07-30] MEDS: ARICEPT 10 MG PO ×2 (02:10→21:07)
[2024-07-30 06:00] VITALS: BMI 22.9
[2024-07-30 08:24] LABS: Glucose - Point of Care 156 mg/dl (70-99)
[2024-07-30] MEDS: LEXAPRO 5 MG PO (08:29)
[2024-07-30] MEDS: NON-FORMULARY ITEM 25 MG PO (08:29)
[2024-07-30] MEDS: PROGRAF 1 MG PO (08:29)
[2024-07-30] MEDS: NOVOLOG FLEXPEN-LOW RESISTANCE 1 UNITS SC (10:00)
[2024-07-30 10:11] VITALS: BP 163/81
--- NOTE | 2024-07-30 11:35 | CM ---
ED CM consult for SNF placement
Conference call with son/Anjel and DIL/Areli
Pt is Cantonese speaking and with dementia
AxO to person and place
Pt ambulates independently with no ADs
He requires supervision and coaxing and cueing to complete all ADLs
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
Pt has income stream and approx $50k in funds
Pt's dtr/Mona is POA and resides in [place]
PCP- Bunny Landeros
Rx- [facility]
[facility] verbally reviewed- copy left bedside and on ED chart
LTC planning discussed with family regarding SNF vs memory care as well
PT eval completed- pt at [facility]/sup in [facility]
SNF would likely be private pay as anticipated auth denial due to current level of functioning
[place] [employer] info provided for waiver vs [employer] services
[facility] info also provided
SNF resources also provided
Family plans to take pt home with them as they consider LTC options and finances
Encouraged to increase private duty throughout process
Discharge Disposition- declined SNF placement, home with family and private duty
--- NOTE | 2024-07-30 13:57 | W.PN.UPDATE ---
Update Note
Progress Note Update
Seen and examined independent of overnight physician.
Patient currently watching TV. Denies any complaints. Overnight events noted. Patient was pleasantly confused and was walking around. Additional history obtained by calling patient's son Anjel and patient [id number]. Per family patient at
home with episodes of severe behavioral disturbances with agitation. Patient sleeping only few hours at nighttime. Remains with intermittent cycles of calmness and/or agitations at times. Family is looking for further assistance with medical
management and chemical restraints if possible.
General: cachetic, watching tv.
HEENT: NormoCephalic, Anicteric, Moist mucous membranes and Atraumatic
Respiratory: Clear
Cardiac: S1/S2 and Regular Rhythm
GI: Soft, Non Tender, Non Distended and Normal Bowel Sounds
Musculoskeletal: No Clubbing, No Cyanosis and No Edema
Skin: Warm
Neuro: Alert, Oriented (oriented to person only), Nonfocal/grossly intact and Cranial Nerves Intact
Hematologic/Lymphatic: No Lymphadenopathy
Psych: Calm
Family agreed for patient to be started on antipsychotropic medication. Patient home medication list reviewed and already on donepezil and SSRIs. Family agreed for patient to be started on Risperdal for now. Monitor for any behavioral
disturbances overnight. Afebrile. CBC and BMP within normal limits. No signs of active infection for now. Monitor mentation with Risperdal. If with persistent severe agitation may need psych input. Family to also look into long-term care.
Currently patient does not qualify for SNF.
Patient with history of liver transplant continue home medication regimen.
Discussed care with patient son and [id number] over the phone in details.
[2024-07-30] MEDS: NOVOLOG FLEXPEN-LOW RESISTANCE SC (15:33)
[2024-07-30 15:44] VITALS: BP 148/78
[2024-07-30 16:29] LABS: Glucose - Point of Care 250 mg/dl (70-99)
[2024-07-30] MEDS: NOVOLOG FLEXPEN-LOW RESISTANCE 3 UNITS SC (16:45)
[2024-07-30] MEDS: LOVENOX SC (18:32)
[2024-07-30] MEDS: RISPERDAL 0.5 MG PO (18:39)
--- NOTE | 2024-07-30 20:30 | PTCARENOTE ---
Patient received from ED AAOX1 oriented to self, patient primary language mandarin per patient. Patient medicated per AUG, assessment documented in flowsheet. Patient has no IV at this time.
[2024-07-30] MEDS: FLOMAX 0.8 MG PO (21:07)
[2024-07-30 21:24] LABS: Glucose - Point of Care 168 mg/dl (70-99)
[2024-07-30 23:50] VITALS: BP 111/79
[2024-07-31 07:00] VITALS: BP 123/78
[2024-07-31 07:26] LABS: Glucose - Point of Care 146 mg/dl (70-99)
[2024-07-31] MEDS: NOVOLOG FLEXPEN-LOW RESISTANCE SC ×2 (08:11→11:53)
[2024-07-31] MEDS: PROGRAF 1 MG PO (09:23)
[2024-07-31] MEDS: LEXAPRO 5 MG PO (09:23)
[2024-07-31] MEDS: NON-FORMULARY ITEM 25 MG PO (09:24)
[2024-07-31 09:56] VITALS: BP 143/74; PULSE 61; O2SAT 93
[2024-07-31 11:40] LABS: Glucose - Point of Care 147 mg/dl (70-99)
[2024-07-31 15:00] VITALS: BP 135/68
[2024-07-31 15:34] LABS: TSH 1.81 uIU/ml (0.47-4.68)
[2024-07-31 16:10] LABS: Folate 10.7 ng/ml (2.76-20); Vitamin B12 244 pg/ml (239-931)
--- NOTE | 2024-07-31 16:33 | W.PN.HOSP.TC ---
Today's Communication/Plan
-
discharge planning in 24 hr if mentation remains stable
Assessment / Plan
Assessment / Plan
R/o Toxic metabolic encephalopathy
History of senile dementia
- Patient with subacute worsening agitation and combativeness since his recent hospitalizations. Calm and cooperative in ED. Family suspects sundowning but unable to care for him at home.
- labs ok, no indication for fluids, abx
- no particular symptoms of weakness, lethargy, to suggest covid/flu
- suspect related to dementia. continue donepezil, continue escitalopram
- quetiapine 25 hs prn agitation
- Clinically likely patient have agitation with senile dementia.
History of Cirrhosis s/p Liver Transplant
History of Hepatitis B
- Continue tacrolimus/tenofovir
History of Prostate Cancer s/p XRT
BPH
- continue tamsulosin
NIDDM
- sliding scale insulin for now
DVT PPX - lovenox sq
Code status - full code
Anticipated Discharge: Within 24 hours
Subjective/Interval History
-
Date of Service: July 31, 2024
Denies of problems overnight
no other issues
Objective Data
-
Vital Signs:
Vital Signs
Temp Pulse Resp BP Pulse Ox
97.5 F 71 18 135/68 97
07/31/24 15:00 07/31/24 15:00 07/31/24 15:00 07/31/24 15:00 07/31/24 15:00
I&O
07/30/24 07/31/24 08/01/24
06:59 06:59 06:59
Intake Total 240 / 240
Balance 240 / 240
Review of Systems
-
Respiratory: Reports No Symptoms
Cardiac: Reports No Symptoms
Abdomen/GI: Reports No Symptoms
Physical Exam
-
General: No Apparent Distress and Comfortable
HEENT: Negative Oxygen
Respiratory: Clear to Auscultation
Cardiac: Regular Rhythm and S1/S2; Negative Murmur or Rub
GI: Soft, Nontender and Nondistended
Musculoskeletal: No Edema
Neuro: Awake, Alert, Oriented, No Motor Deficits and Nonfocal/Grossly Intact
Psych: Calm
[2024-07-31] MEDS: RISPERDAL 0.5 MG PO ×2 (17:25→23:19)
[2024-07-31] MEDS: LOVENOX 40 MG SC (17:26)
[2024-07-31 17:29] LABS: Glucose - Point of Care 283 mg/dl (70-99)
[2024-07-31] MEDS: NOVOLOG FLEXPEN-LOW RESISTANCE 3 UNITS SC (17:31)
[2024-07-31 21:52] LABS: Glucose - Point of Care 111 mg/dl (70-99)
[2024-07-31] MEDS: ARICEPT PO ×2 (21:56→22:41)
[2024-07-31] MEDS: FLOMAX PO ×2 (21:56→22:42)
[2024-07-31] MEDS: ATIVAN PO ×2 (21:56→22:42)
[2024-07-31] MEDS: ATIVAN 0.5 MG PO (23:02)
--- NOTE | 2024-07-31 23:27 | PTCARENOTE ---
Addendum entered by Sailaja Curry RN 08/01/24 03:13:
Pt continues of having periods of agitation and attempting to leave. Pt remains high fall risk. Refuses to stay in room, and remains on Gillian chair.
Original Note:
Pt AAOx1. Pt became agitated and anxious. Pt was paranoid that some one will come to shoot him. Pt attempting to elope, leaving room every 5 min. Pt has a hard time understanding that he is in the hospital. Family member was called to help him feel
more comfortable, but refused to talk to them and was unsuccessful to calm down. Pt refused Meds at first and only took his Ativan after 2 attempts. Pt was also able to take his Risperdal. Pt is a high risk for fall. Multiple attempt were tried to
prevent pt from leaving, but became agitated. Gillian chair was order for safety.
[2024-07-31 23:50] VITALS: BP 152/84
[2024-08-01 07:00] VITALS: BP 157/92
[2024-08-01 07:49] LABS: Glucose - Point of Care 163 mg/dl (70-99)
[2024-08-01] MEDS: LEXAPRO 5 MG PO (08:09)
[2024-08-01] MEDS: PROGRAF 1 MG PO (08:09)
[2024-08-01] MEDS: NON-FORMULARY ITEM 25 MG PO (08:11)
[2024-08-01] MEDS: NOVOLOG FLEXPEN-LOW RESISTANCE 1 UNITS SC (08:12)
--- NOTE | 2024-08-01 09:57 | CM ---
Addendum entered by Sarah Butler 08/01/24 12:57:
Plan: Home with private caregivers from [facility] discussed with son increasing private duty services, son also asking about medication for agitation at home. Patient's son has declined visiting nurses in home.
Original Note:
audio/visual manager reviewed patient's chart and spoke with patient's son Anjel today, per son they plan on taking patient home at discharge, they are interested in any medications that would help with keeping patient calm, they have private duty
caregivers, from [facility] and plan on resuming caregivers at home, rn field case manager offered visiting nurses and patient's family declined visiting nurses.
Plan; Home with family and private caregivers.
[2024-08-01 10:34] VITALS: BP 142/71; PULSE 77; O2SAT 96
[2024-08-01] MEDS: RISPERDAL M-TAB (ORALLY DISINTEGRATING) 0.5 MG PO (10:47)
[2024-08-01 11:49] LABS: Glucose - Point of Care 293 mg/dl (70-99)
--- NOTE | 2024-08-01 12:02 | PTCARENOTE ---
rn flow dental coordinator- Patient cleared for discharge. Called instructions to patients's son who states that he will come and piack patient up at [phone].
[2024-08-01] MEDS: NOVOLOG FLEXPEN-LOW RESISTANCE 5 UNITS SC (13:09)
[2024-08-01 14:42] VITALS: BP 141/77
--- NOTE | 2024-08-01 15:00 | W.PN.HOSP.TC ---
Today's Communication/Plan
-
d.c home
Assessment / Plan
Assessment / Plan
Toxic metabolic encephalopathy - Ruled out
History of senile dementia w behavioral issues
- Patient with subacute worsening agitation and combativeness since his recent hospitalizations. Calm and cooperative in ED. Family suspects sundowning but unable to care for him at home.
- labs ok, no indication for fluids, abx
- no particular symptoms of weakness, lethargy, to suggest covid/flu
- suspect related to dementia. continue donepezil, continue escitalopram
- quetiapine 25 hs prn agitation
- Clinically likely patient have agitation with senile dementia.
History of Cirrhosis s/p Liver Transplant
History of Hepatitis B
- Continue tacrolimus/tenofovir
History of Prostate Cancer s/p XRT
BPH
- continue tamsulosin
NIDDM
- sliding scale insulin for now
DVT PPX - lovenox sq
Code status - full code
More than 30 minutes spent in discharge including
Final examination of the patient
Summarizing hospital stay
Instructions for continuing care to all relevant caregivers
Preparation of discharge records, prescriptions, and referral forms
Total time spent (in minutes): 38 mins
Anticipated Discharge: Today
Subjective/Interval History
-
Date of Service: August 01, 2024
Patient was wandering on the other patient room yesterday, currently in Gillian chair
No reported agitation
Objective Data
-
Labs:
Laboratory Results
08/01/24
06:00
WBC Cancelled
Hgb Cancelled
Hct Cancelled
Plt Count Cancelled
Sodium Cancelled
Potassium Cancelled
Chloride Cancelled
Carbon Dioxide Cancelled
BUN Cancelled
Creatinine Cancelled
Glucose Cancelled
Calcium Cancelled
Vital Signs:
Vital Signs
Temp Pulse Resp BP Pulse Ox
97.6 F 71 18 141/77 99
08/01/24 14:42 08/01/24 14:42 08/01/24 14:42 08/01/24 14:42 08/01/24 14:42
I&O
07/31/24 08/01/24 08/02/24
06:59 06:59 06:59
Intake Total 240 / 240 1260 / 1260
Balance 240 / 240 1260 / 1260
Review of Systems
-
Respiratory: Reports No Symptoms
Cardiac: Reports No Symptoms
Abdomen/GI: Reports No Symptoms
Physical Exam
-
General: No Apparent Distress and Comfortable
HEENT: Negative Oxygen
Respiratory: Clear to Auscultation
Cardiac: Regular Rhythm and S1/S2; Negative Murmur or Rub
GI: Soft, Nontender and Nondistended
Musculoskeletal: No Edema
Neuro: Awake, Alert, Oriented, No Motor Deficits and Nonfocal/Grossly Intact
Psych: Calm
--- NOTE | 2024-08-02 18:48 | W.DCSUMMARY ---
Discharge Summary
Discharge Data
Date of Admission: 07/30/24
Date of Discharge: 08/01/24
-
Pending Results: No
Hospital Course
Discharging Physician : Dr Radu Pablo
Disposition : Home
Primary care physician : Dr Bunny Landeros
Principal Discharge diagnosis :
Senile dementia with behavioral problems
Chronic Discharge diagnosis :
History of hepatitis B
History of cirrhosis
History of liver transplant
History of prostate cancer status post radiation
Benign prostatic hyperplasia
Dtz-smnzwlo-amniarwim diabetes mellitus
Hospital Course :
Patient is a 89-year-old male with no mentioned past medical history was brought in by family after patient was noted to having episodes of agitation. Patient has known to have some cognitive impairment although was felt to be more agitated.
Initially patient was admitted under observation for ruling out any causes of acute encephalopathy. No lab abnormality found. No other clinical signs suggestive of any ongoing secondary reason explaining behavioral changes. Patient was started on
symptomatic care with antipsychotic medication and was monitored in the hospital for 48 hours. Patient had significant improvement in behavior after this . patient was discharged home with home care/private caregiver at this point.
Important imaging findings :
None
Procedure findings :
None
Discharge Plan
-
Patient Disposition: Home with Home Care
Discharge Diagnosis/Procedures: Dementia, Behavioral problem
Condition: Fair
Diet: Regular
Activity: As tolerated
Driving Restrictions: No driving
Bathing Restrictions: OK to Shower
Referrals:
Bunny Landeros MD [Family Provider] - in one week
Prescriptions:
New
risperidone 0.5 mg tablet,disintegrating
0.5 mg PO TIDPRN PRN (Reason: Agitation) Qty: 20 0RF
risperidone [Risperdal] 0.5 mg tablet
0.5 mg PO HS Qty: 30 0RF
Continued
donepezil 10 mg tablet
10 mg PO HS
tamsulosin 0.4 mg capsule
0.8 mg PO HS
tacrolimus 1 mg Capsule
1 mg PO DAILY
escitalopram oxalate 5 mg tablet
5 mg PO DAILY
loperamide [Anti-Diarrheal (loperamide)] 2 mg Tablet
2 - 4 mg PO DAILY
Vemlidy 25 mg tablet
25 mg PO DAILY Qty: 0 0RF
lorazepam 0.5 mg Tablet
0.5 mg PO HS
Discharge Orders:
Discharge Patient (As Directed); Ordered 08/01/24
Ordered By: Radu Pablo
Discharge Date and Time
Discharge Date/Time: 08/01/24 14:53
Print Language: MALTESE
== END 2024-08-01 14:53 | disposition home health service (06) ==
LOC: 4 WEST ACU 01:24
PROVIDERS: ADMITTING PHYSICIAN Internal Medicine; ATTENDING PHYSICIAN Hospitalist; EMERGENCY PHYSICIAN Student in an Organized Health Care Education/Training Program; FAMILY PHYSICIAN Family Medicine
DX: R41.82 Altered mental status, unspecified (principal); E11.9 Type 2 diabetes mellitus without complications; F03.911 Unspecified dementia, unspecified severity, with agitation; F03.918 Unspecified dementia, unspecified severity, with other behavioral disturbance; I10 Essential (primary) hypertension; N40.0 Benign prostatic hyperplasia without lower urinary tract symptoms; Z94.4 Liver transplant status; Z79.621 Long term (current) use of calcineurin inhibitor; Z79.624 Long term (current) use of inhibitors of nucleotide synthesis; Z92.3 Personal history of irradiation; Z85.46 Personal history of malignant neoplasm of prostate; Z86.19 Personal history of other infectious and parasitic diseases
CPT/HCPCS: 80053; 81003; 81015; 82607; 82746; 82962; 84439; 84443; 85025; 87798; 97166; 97530; 99284; G0378

== ENCOUNTER 2024-08-11 23:55 | Observation (INO) | payer OTHER, SELFPAY ==
[2024-08-11 18:08] VITALS: BP 124/70
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
[2024-08-11 19:44] LABS: % Basophils 0.5 % (0-2); % Eosinophils 5.5 % (0-6); % Immature Granulocytes 0.8 % (0-0.5); % Lymphocytes 15.5 % (20.5-51.1); % Monocytes 9.8 % (1.7-9.3); % Neutrophils 67.9 % (42.2-75.2); Absolute Eosinophils 0.2 10^3/uL (0-0.7); Absolute Lymphocytes 0.6 10^3/uL (1.2-3.4); Absolute Monocytes 0.4 10^3/uL (0.1-0.6); Absolute Neutrophils 2.7 10^3/uL (1.4-6.5); Hematocrit 35.5 % (39.0-52.0); Hemoglobin 12.2 g/dL (13.0-18.0); Mean Corp Hgb Conc. 34.4 g/dL (33.0-37.0); Mean Corpuscular Hgb 29.3 pg (27.0-31.0); Mean Corpuscular Volume 85.3 fL (80.0-94.0); Mean Platelet Volume 9.2 fL (7.4-10.4); Nucleated Red Blood Cells % 0 % (-); Platelet Count 133 10^3/uL (130-400); Red Blood Cell Count 4.16 10^6/uL (4.70-6.10)
[2024-08-11 19:58] LABS: Lactic Acid 1.4 mmol/L (0.7-2.0)
[2024-08-11 20:02] LABS: COVID-19 Antigen Negative (Negative)
[2024-08-11 20:37] LABS: ALT (SGPT) 48 U/L (0-50); AST (SGOT) 53 U/L (17-59); Albumin 3.7 g/dl (3.5-5.0); Alkaline Phosphatase 160 U/L (38-126); Ammonia 10 umol/L (9-30); Blood Urea Nitrogen 14 mg/dl (9-20); Calcium 8.7 mg/dl (8.4-10.2); Carbon Dioxide 30 mmol/L (22-30); Chloride 99 mmol/L (98-107); Glucose 156 mg/dl (70-99); Lipase 79 U/L (23-300); Potassium 4.2 mmol/L (3.5-5.1); Sodium 134 mmol/L (135-145); Total Bilirubin 0.9 mg/dl (0.2-1.3); Total Protein 6.6 g/dl (6.3-8.2); eGFR > 60.00
[2024-08-11 22:02] LABS: Urine Albumin 2+ (Neg - Trace); Urine Bilirubin Negative (Negative); Urine Character Clear (Clear); Urine Color Yellow; Urine Glucose 2+ (Negative); Urine Ketone Negative (Negative); Urine Leukocyte Negative (Negative); Urine Nitrite Negative (Negative); Urine Occult Blood 1+ (Negative); Urine Urobilinogen Negative (Neg - 1+)
[2024-08-11 22:34] LABS: Urine Red Blood Cell 0-2 /HPF (0-2); Urine Squamous Cell 0-2 /LPF (Few); Urine White Cell 0-2 /HPF (0-5)
[2024-08-11 22:37] VITALS: BP 133/68
[2024-08-11 23:00] VITALS: BP 126/76
[2024-08-11 23:12] VITALS: BP 133/68
--- NOTE | 2024-08-11 23:35 | HPS.HSE ---
Family Physician
-
Family Physician: Bunny Landeros
Chief Complaint
-
Combativeness at home
History of Present Illness
This is a 89-year-old male with past medical history of liver transplant on tenofovir and tacrolimus, hypertension, dementia, BPH presenting to the emergency department for evaluation of ongoing mental status decrease in the setting of his
underlying dementia.
Patient unable to provide history. Family not available at the time of my evaluation. Per records patient currently lives with son and daughter. He was actually admitted recently with combativeness and dementia. At the time this was thought to
be secondary to agitation and was started on risperidone as needed and at bedtime. Since discharge he has continued to remain combative. Yesterday he was yelling and throwing things at family members. Refused taking medications. Family members
are did not feel comfortable taking him home and wants possible placement.
On my evaluation the patient was resting comfortably in bed. Due to language barrier and dementia unable to provide much history. He did not appear agitated at this time.
In the ED was afebrile, blood pressures 183/60 with a pulse of 67. Respiratory rate was 14 and he was satting 94% on room air. UA was negative. CT of the head showed no acute changes. CBC was unremarkable. Electrolytes BUN/creatinine were also
unremarkable.
Medical History
Past Medical History
Past Medical History: Reports Dementia and Other (End-stage liver disease status post transplant)
Additional Past Medical History:
BPH
Past Surgical History: Reports Other (Liver transplant)
Social History
Tobacco: Non-smoker
Alcohol: None
Drug: None
Personal: Single
Living: With Family
Employment: Retired
Family History
Family History: Not pertinent
Allergies / Home Medications
Allergies reflects when Allergies were last updated in [employer].
Home Medications with original date entered in [employer]
Allergy/Medication List:
Allergies
Allergy/AdvReac Type Severity Reaction Status Date / Time
No Known Allergies Allergy Verified 08/11/24 18:10
Home Medications
donepezil 10 mg tablet 10 mg PO HS Neurological Condition 11/26/22
tacrolimus 1 mg capsule, immediate-release 1 mg PO DAILY Autoimmune Disorder 11/26/22
tamsulosin 0.4 mg capsule 0.8 mg PO HS Urinary Issue 11/26/22
escitalopram oxalate 5 mg tablet 5 mg PO DAILY Mental Health/Anxiety 06/24/23
loperamide 2 mg tablet (Anti-Diarrheal (loperamide)) 2 mg PO DAILY diarrhea 03/24/24
tenofovir alafenamide 25 mg tablet (Vemlidy) 25 mg PO DAILY Liver issues #0 tabs 04/04/24
lorazepam 0.5 mg tablet 0.5 mg PO HS Mental Health/Anxiety 07/29/24
repaglinide 0.5 mg tablet 0.5 mg PO BID 08/11/24
risperidone 1 mg disintegrating tablet 1 mg PO HS 08/11/24
trazodone 50 mg tablet 50 mg PO HS 08/11/24
Review of Systems
-
Unable to obtain full review of systems at this time due to: Dementia
Physical Exam
Vital Signs
Vital Signs
Temp Pulse Resp BP Pulse Ox
98.3 F 67 14 133/68 94
08/11/24 18:08 08/11/24 23:12 08/11/24 23:12 08/11/24 23:12 08/11/24 23:12
Physical Exam
General: Well Developed, No Apparent Distress and Comfortable
HEENT: NormoCephalic, Anicteric, Moist mucous membranes and Atraumatic
Respiratory: Clear
Cardiac: S1/S2 and Regular Rhythm
Breast: Deferred by me
GI: Soft, Non Tender, Non Distended and Normal Bowel Sounds
Genito-urinary: Deferred by me
Musculoskeletal: No Clubbing, No Cyanosis and No Edema
Skin: Warm
Neuro: Awake, Oriented (oriented to person only) and Nonfocal/grossly intact
Hematologic/Lymphatic: No Lymphadenopathy
Psych: Calm
Laboratory Results
-
08/11/24 19:28
08/11/24 20:18
Laboratory Results
Lactic Acid 1.4 mmol/L (0.7-2.0) 08/11/24 19:28
Total Bilirubin 0.9 mg/dl (0.2-1.3) 08/11/24 20:18
AST 53 U/L (17-59) 08/11/24 20:18
ALT 48 U/L (0-50) 08/11/24 20:18
Alkaline Phosphatase 160 U/L (38-126) H 08/11/24 20:18
Lipase 79 U/L (23-300) 08/11/24 20:18
Data Reviewed
-
CT Scan: Report Reviewed by me
Lab Data: Labs Reviewed by me
Old Records: Reviewed
Impression/Plan
-
IMPRESSION:
88 y.o with h/o hep cirrhosis s/p Liver Tx, senile dementia, hypertension, NIDDM, BPH who presents to ED with intermittent agitation and combativeness at home. Admitted for similar complaint recently and placed on risperidone. Now refuses to take
medications, combative and throwing things at family. block saw operator unwilling to take him home due safety concerns and prefers placement. His w/u in ED was negative for toxic process or infection and reassuring. CT of the head normal.
PLAN:
AMS - Seems to be developing dementia with psychosis/agitation. Still eating and drinking ok but more combative
- admit to med/surg observation
- labs ok, no indication for fluids, abx
- continue donepizil, continue escitalopram
- continue risperidone
- PT evaluation
- case management for SNF
Liver Transplant
- continue tacrolimus 1mg po daily
- continue Vemlidy
BPH
- continue tamsulosin
NIDDM
- sliding scale insulin for now
DVT PPX - lovenox sq
Code status - full code
[2024-08-12] VITALS: BP 126/69
[2024-08-12 00:50] VITALS: BP 131/68; BMI 21.7
--- NOTE | 2024-08-12 02:17 | PTCARENOTE ---
Receive pt from ER. Pt alert oriented X1. He knows he is in the hospital, but unable to give a name. Confused to time, but calm and cooperative. Wants to sleep. Pt walks X1 from the stretcher to bed. Pt oriented to the room, call freedman within reach
and bed alarm in place. VSS (T=97.7, HR=72, RR=18, BY=498/68, SpO2=95% on RA). Will keep monitoring the pt.
[2024-08-12 07:30] VITALS: BP 141/76
[2024-08-12] MEDS: LEXAPRO 5 MG PO (09:04)
[2024-08-12] MEDS: PROGRAF 1 MG PO (09:04)
[2024-08-12] MEDS: FLUSH (NSS) 1 FLUSH IV (09:06)
[2024-08-12 11:50] LABS: Glucose - Point of Care 253 mg/dl (70-99)
--- NOTE | 2024-08-12 12:02 | W.PN.HOSP.TC ---
Today's Communication/Plan
-
Monitor vital signs see plan
Discussed with son over the phone, patient is calm here. Will start low-dose risperidone during the day as majority of patient's agitation is during the day
Continue with risperidone as needed and also at night
Continue donepezil
Continue with liver transplant meds
PT/OT
Assessment / Plan
Assessment / Plan
General: No Apparent Distress and Comfortable
HEENT: Negative Oxygen
Respiratory: Clear to Auscultation
Cardiac: Regular Rhythm and S1/S2; Negative Murmur or Rub
GI: Soft, Nontender and Nondistended
Musculoskeletal: No Edema
Neuro: Awake
Psych: Calm
Change in mental status likely worsening dementia with psychosis/agitation
History of senile dementia
Calm in the hospital
Continue donepezil, escitalopram
Continue risperidone at night and as needed
PT/OT
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
Mild hyponatremia
Monitor
History of Cirrhosis s/p Liver Transplant
History of Hepatitis B
- Continue tacrolimus/tenofovir
BPH
- continue tamsulosin
Hyponatremia
Monitor
History of prostate cancer status post XRT
NIDDM
- sliding scale insulin for now
accuchecks
DVT PPX - lovenox sq
Code status - full code
Anticipated Discharge: Within 24 hours
Subjective/Interval History
-
Date of Service: August 12, 2024
no pain
Objective Data
-
Vital Signs:
Vital Signs
Temp Pulse Resp BP Pulse Ox
97.7 F 66 18 141/76 98
08/12/24 07:30 08/12/24 07:30 08/12/24 07:30 08/12/24 07:30 08/12/24 09:00
I&O
02/08/12/24 08/13/24
06:59 06:59 06:59
Output Total 250 / 250
Balance -250 / -250
[2024-08-12] MEDS: NOVOLOG FLEXPEN-LOW RESISTANCE 3 UNITS SC (12:39)
[2024-08-12] MEDS: RISPERDAL M-TAB (ORALLY DISINTEGRATING) 0.25 MG PO (12:47)
[2024-08-12] MEDS: NON-FORMULARY ITEM 25 MG PO (13:26)
[2024-08-12 15:20] VITALS: BP 119/68
--- NOTE | 2024-08-12 15:21 | CM ---
Patient seen at bedside, Pt is Cantonese speaking and with dementia. CM called to patient son and participated with conference call with son/Anjel and DIL/Areli. Per patient daughter in law, patient ambulates independently with no ADL's. Patient
has private aides with [facility] 10-4pm 5 days week and she is stated that patient has not been eating or taking medications at home. Patient does require supervison and cueing to complete ADL's. Patient family requesting that patient be in SNF
placement for medication management and Psych assessment. CM sent tt to physician requesting assessment. Patient daughter Mona is poa and resides in [place] but son and daughter in law are primary caregivers. Patient PCP is dr. Landeros and he uses the
[facility] in [place]. Patient daughter in law reviewed [employer]/[place] form via phone and provided email of [email or web address] for CM to send the form. Family has been looking into adult day programs but patient has refused to get on bus or take medication.
Patient family is still planning to take patient home when he is calm. CM also reviewed a place for mom and information provided. CM will continue to follow for discharge planning needs.
Plan; assessment/medical treatment plan in process. SNF vs geripsych pending physician assessments
[2024-08-12 16:52] LABS: Glucose - Point of Care 137 mg/dl (70-99)
[2024-08-12] MEDS: NOVOLOG FLEXPEN-LOW RESISTANCE SC (17:22)
[2024-08-12] MEDS: LOVENOX 40 MG SC (17:24)
[2024-08-12 21:36] LABS: Glucose - Point of Care 231 mg/dl (70-99)
[2024-08-12] MEDS: FLOMAX 0.8 MG PO (21:56)
[2024-08-12] MEDS: ATIVAN 0.5 MG PO (21:56)
[2024-08-12] MEDS: ARICEPT 10 MG PO (21:56)
[2024-08-12] MEDS: RISPERDAL 0.5 MG PO (21:57)
[2024-08-12 23:54] VITALS: BP 104/57
[2024-08-13 07:38] LABS: % Basophils 1.1 % (0-2); % Eosinophils 7.2 % (0-6); % Immature Granulocytes 1.4 % (0-0.5); % Lymphocytes 24.9 % (20.5-51.1); % Monocytes 9.4 % (1.7-9.3); Absolute Eosinophils 0.3 10^3/uL (0-0.7); Absolute Immature Granulocytes 0.1 10^3/uL (0-0.05); Absolute Lymphocytes 0.9 10^3/uL (1.2-3.4); Absolute Monocytes 0.3 10^3/uL (0.1-0.6); Mean Corp Hgb Conc. 34.3 g/dL (33.0-37.0); Mean Corpuscular Hgb 29.6 pg (27.0-31.0); Mean Corpuscular Volume 86.2 fL (80.0-94.0); Mean Platelet Volume 9.6 fL (7.4-10.4); Nucleated Red Blood Cells % 0 % (-); Platelet Count 146 10^3/uL (130-400); Red Blood Cell Count 4.06 10^6/uL (4.70-6.10); White Blood Cell Count 3.6 10^3/uL (4.8-10.8)
[2024-08-13 07:55] VITALS: BP 119/63
[2024-08-13 07:56] LABS: ALT (SGPT) 48 U/L (0-50); AST (SGOT) 32 U/L (17-59); Albumin 3.7 g/dl (3.5-5.0); Alkaline Phosphatase 181 U/L (38-126); Blood Urea Nitrogen 17 mg/dl (9-20); Calcium 8.5 mg/dl (8.4-10.2); Carbon Dioxide 32 mmol/L (22-30); Chloride 99 mmol/L (98-107); Estimated Creatinine Clearance 38 ml/min; Glucose 152 mg/dl (70-99); Potassium 4.5 mmol/L (3.5-5.1); Sodium 136 mmol/L (135-145); Total Bilirubin 1.1 mg/dl (0.2-1.3); Total Protein 6.3 g/dl (6.3-8.2); eGFR > 60.00
[2024-08-13 08:23] LABS: Glucose - Point of Care 157 mg/dl (70-99)
[2024-08-13] MEDS: NOVOLOG FLEXPEN-LOW RESISTANCE 1 UNITS SC (09:05)
[2024-08-13] MEDS: PROGRAF 1 MG PO (09:06)
[2024-08-13] MEDS: RISPERDAL M-TAB (ORALLY DISINTEGRATING) 0.25 MG PO (09:06)
[2024-08-13] MEDS: NON-FORMULARY ITEM 25 MG PO (09:06)
[2024-08-13] MEDS: LEXAPRO 5 MG PO (09:06)
[2024-08-13] MEDS: FLUSH (NSS) 1 FLUSH IV (09:06)
--- NOTE | 2024-08-13 09:50 | CS.PSYCHR ---
Consult Summary - Psychiatry
-
Psychiatry consult for dementia with behavioral disturbances. Question for placement [facility] vs SNF vs return home. 89 yo [place] male with dementia admitted 08/11 for combative behaviors at home. Patient was recently admitted at with similar
presentation (07/30-08/01 discharged with Seroquel 25mg HS PRN). Per chart, visiting nurse was unable to care for him. He was started on Risperdal by PCP recently. Currently on 0.25mg AM and 0.5mg HS. Also takes Ativan 0.5mg HS and Lexapro 5mg daily.
Spoke with patient's daughter who confirms psychiatric medications have been managed by PCP. She states recently he had recommended increase in Risperdal to 1mg HS which in combination with Ativan did help him sleep. She does not think Lexapro has
done much for him and we discussed stopping it to minimize polypharmacy. Per nursing patient has been compliant with medications and slept overnight. He has not be a behavioral problem thus far on the medical floor.
Qtc 440 on 08/12.
Social- lives with son and daughter
PMH- dementia, liver transplant, HTN, BPH
A/P- 89 yo male with dementia with behavioral disturbances. Stop Lexapro. Continue remainder of psychiatric medication regimen for now and monitor behavior. I do not think patient would benefit from [facility]-psych. It would be to his benefit to
determine optimal medication regimen while medically monitored. Psychiatry will follow.
--- NOTE | 2024-08-13 10:13 | CM ---
Patient seen at bedside. Patient is sleeping. Patient PT/OT recommendation is for SNF. Psych to assess patient. CM will continue to follow for discharge planning needs.
Plan; home with [facility]/aides and family vs SNF.
--- NOTE | 2024-08-13 10:55 | W.PN.HOSP.TC ---
Today's Communication/Plan
-
Monitor vital signs
see plan
Psychiatry consulted
Continue to monitor behavioral changes
Continue with current medications
Assessment / Plan
Assessment / Plan
General: No Apparent Distress and Comfortable
HEENT: Negative Oxygen
Respiratory: Clear to Auscultation
Cardiac: Regular Rhythm and S1/S2; Negative Murmur or Rub
GI: Soft, Nontender and Nondistended
Musculoskeletal: No Edema
Neuro: Awake
Psych: Calm
Change in mental status likely worsening dementia with psychosis/agitation
History of senile dementia
Calm in the hospital so far; psychiatry consulted for titration of his medications
Continue donepezil
Continue risperidone at night and as needed. added low dose risperidone in the morning
PT/OT
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
Mild hyponatremia
Resolved
History of Cirrhosis s/p Liver Transplant
History of Hepatitis B
- Continue tacrolimus/tenofovir
BPH
- continue tamsulosin
History of prostate cancer status post XRT
NIDDM
- sliding scale insulin for now
accuchecks
DVT PPX - lovenox sq
Discussed with son 08/12
Code status - full code
Anticipated Discharge: Within 24 hours
Subjective/Interval History
-
Date of Service: August 13, 2024
Pleasant this morning
Objective Data
-
Labs:
Laboratory Results
08/13/24 08/13/24
06:47 06:48
WBC 3.6 L
Hgb 12.0 L
Hct 35.0 L
Plt Count 146
Sodium 136
Potassium 4.5
Chloride 99
Carbon Dioxide 32 H
BUN 17
Creatinine 1.1
Glucose 152 H
Calcium 8.5
Total Bilirubin 1.1
AST 32
ALT 48
Alkaline Phosphatase 181 H
Vital Signs:
Vital Signs
Temp Pulse Resp BP Pulse Ox
98.2 F 59 14 119/63 91
08/13/24 07:55 08/13/24 07:55 08/13/24 07:55 08/13/24 07:55 08/13/24 07:55
I&O
08/12/24 08/13/24 08/14/24
06:59 06:59 06:59
Output Total 250 / 250 550 / 550
Balance -250 / -250 -550 / -550
[2024-08-13 12:46] LABS: Glucose - Point of Care 141 mg/dl (70-99)
[2024-08-13] MEDS: NOVOLOG FLEXPEN-LOW RESISTANCE SC (13:02)
[2024-08-13 15:55] VITALS: BP 118/71
[2024-08-13] MEDS: RISPERDAL M-TAB (ORALLY DISINTEGRATING) 0.5 MG PO (16:36)
[2024-08-13 17:37] LABS: Glucose - Point of Care 285 mg/dl (70-99)
[2024-08-13] MEDS: NOVOLOG FLEXPEN-LOW RESISTANCE 3 UNITS SC (17:54)
[2024-08-13] MEDS: LOVENOX 40 MG SC (17:55)
--- NOTE | 2024-08-13 17:58 | PTCARENOTE ---
Pt with increased agitation late this afternoon, attempting to get up without assist, saying he is going home, attempted re-orientation, toileting, pain assessment, offering food/fluid without affect. Administered Risperdal 0.5mg po at 1635 with
affect, will monitor.
[2024-08-13] MEDS: RISPERDAL 0.5 MG PO (20:10)
[2024-08-13] MEDS: FLOMAX 0.8 MG PO (20:11)
[2024-08-13] MEDS: ARICEPT 10 MG PO (20:11)
[2024-08-13] MEDS: ATIVAN 0.5 MG PO (20:11)
[2024-08-13 21:53] LABS: Glucose - Point of Care 181 mg/dl (70-99)
[2024-08-13 23:55] VITALS: BP 115/69
[2024-08-14] MEDS: RISPERDAL M-TAB (ORALLY DISINTEGRATING) 0.5 MG PO (01:41)
[2024-08-14] MEDS: SEROQUEL 25 MG PO (03:22)
[2024-08-14 07:46] LABS: % Basophils 0.6 % (0-2); % Eosinophils 9.3 % (0-6); % Immature Granulocytes 0.6 % (0-0.5); % Lymphocytes 23.4 % (20.5-51.1); % Monocytes 9.6 % (1.7-9.3); % Neutrophils 56.5 % (42.2-75.2); Absolute Eosinophils 0.3 10^3/uL (0-0.7); Absolute Lymphocytes 0.8 10^3/uL (1.2-3.4); Absolute Monocytes 0.3 10^3/uL (0.1-0.6); Hematocrit 35.8 % (39.0-52.0); Hemoglobin 12.2 g/dL (13.0-18.0); Mean Corp Hgb Conc. 34.1 g/dL (33.0-37.0); Mean Corpuscular Hgb 28.8 pg (27.0-31.0); Mean Corpuscular Volume 84.6 fL (80.0-94.0); Mean Platelet Volume 9.5 fL (7.4-10.4); Nucleated Red Blood Cells % 0 % (-); Platelet Count 142 10^3/uL (130-400); Red Blood Cell Count 4.23 10^6/uL (4.70-6.10); Red Cell Dist. Width 12.9 % (11.5-14.5); White Blood Cell Count 3.6 10^3/uL (4.8-10.8)
[2024-08-14 08:01] LABS: ALT (SGPT) 36 U/L (0-50); AST (SGOT) 20 U/L (17-59); Albumin 3.8 g/dl (3.5-5.0); Alkaline Phosphatase 178 U/L (38-126); Blood Urea Nitrogen 22 mg/dl (9-20); Calcium 8.8 mg/dl (8.4-10.2); Carbon Dioxide 30 mmol/L (22-30); Chloride 101 mmol/L (98-107); Estimated Creatinine Clearance 42 ml/min; Glucose 157 mg/dl (70-99); Potassium 4.3 mmol/L (3.5-5.1); Sodium 136 mmol/L (135-145); Total Bilirubin 1.1 mg/dl (0.2-1.3); Total Protein 6.4 g/dl (6.3-8.2); eGFR > 60.00
[2024-08-14 08:10] VITALS: BP 147/79
[2024-08-14] MEDS: RISPERDAL M-TAB (ORALLY DISINTEGRATING) 0.25 MG PO (08:58)
[2024-08-14] MEDS: PROGRAF 1 MG PO (08:58)
[2024-08-14] MEDS: NON-FORMULARY ITEM 25 MG PO (08:59)
[2024-08-14] MEDS: NOVOLOG FLEXPEN-LOW RESISTANCE SC ×2 (09:04→17:06)
[2024-08-14 09:06] LABS: Glucose - Point of Care 148 mg/dl (70-99)
--- NOTE | 2024-08-14 09:09 | W.PN.HOSP.TC ---
Today's Communication/Plan
-
Psychiatry follow-up
PT/OT
Assessment / Plan
Assessment / Plan
General: No Apparent Distress and Comfortable
HEENT: Negative Oxygen
Respiratory: Clear to Auscultation
Cardiac: Regular Rhythm and S1/S2; Negative Murmur or Rub
GI: Soft, Nontender and Nondistended
Musculoskeletal: No Edema
Neuro: Awake
Psych: Calm
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
History of senile dementia
Calm in the hospital so far; psychiatry consulted for titration of his medications
Continue donepezil
Continue risperidone at night and as needed. added low dose risperidone in the morning
PT/OT
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
Mild hyponatremia
Resolved
History of Cirrhosis s/p Liver Transplant
History of Hepatitis B
- Continue tacrolimus/tenofovir
Chronic leukopenia -stable.
BPH
- continue tamsulosin
History of prostate cancer status post XRT
DM2 without hyperglycemia -glucose 157 this morning.
- sliding scale insulin for now
accuchecks
DVT PPX - lovenox sq
Code status - full code
Dispo -Home versus SNF pending PT input.
Updated daughter Areli on the phone. Plan ultimately is to take him home from the hospital when medically stable. Awaiting psychiatry input.
Anticipated Discharge: Today
Subjective/Interval History
-
Date of Service: August 14, 2024
Patient seen and examined. No complaints.
Objective Data
-
Labs:
Laboratory Results
08/14/24
07:15
WBC 3.6 L
Hgb 12.2 L
Hct 35.8 L
Plt Count 142
Sodium 136
Potassium 4.3
Chloride 101
Carbon Dioxide 30
BUN 22 H
Creatinine 1.0
Glucose 157 H
Calcium 8.8
Total Bilirubin 1.1
AST 20
ALT 36
Alkaline Phosphatase 178 H
Vital Signs:
Vital Signs
Temp Pulse Resp BP Pulse Ox
98 F 64 18 147/79 96
08/14/24 08:10 08/14/24 08:10 08/14/24 08:10 08/14/24 08:10 08/14/24 08:10
I&O
08/13/24 08/14/24 08/15/24
06:59 06:59 06:59
Intake Total 600 / 600
Output Total 550 / 550 275 / 275
Balance -550 / -550 325 / 325
Review of Systems
-
Unable to obtain full review of systems at this time due to: Dementia and Language Barrier
--- NOTE | 2024-08-14 10:05 | CM ---
Chart reviewed for d/c planning. Per chart, disposition ongoing w/ current determination of SNF vs [facility] psych vs home w/ family.
Psych assessed pt, pt would not benefit from [facility] psych per evaluation. Therapy recommending skilled rehab.
CM discussed w/ family. Spoke w/ pt's son, Anjel, and [id number] regarding plan. Family shared they ultimately would like for pt to come home and do not want pt in a LTC facility. Family agreeable to rehab despite hospitalist having concerns of
pt's behaviors worsening in rehab. CM informed family w/ pt having behaviors at home, some facilities may have some concerns of behaviors while reviewing for admission. Family agreeable to CM sending referrals in [place] and surrounding areas.
CM sent multiple referrals in [facility] for review.
Pt will need insurance auth prior to d/c
Pt will need ambulance at d/c
Plan: SNF; pending accepting facility and auth
[2024-08-14] MEDS: NOVOLOG FLEXPEN-LOW RESISTANCE 1 UNITS SC (12:25)
[2024-08-14 12:40] LABS: Glucose - Point of Care 177 mg/dl (70-99)
--- NOTE | 2024-08-14 12:59 | W.PN.UPDATE ---
Update Note
Progress Note Update
Pt seen, resting in bed, alert, calm, pleasant, speaks very little [place]. Offers no complaints. Reviewed with nursing staff, no agitation, has been pleasant.
Imp: Dementia with behavior disturbance, appears stable
Rec: would continue current med regimen
will follow peripherally
[2024-08-14 16:04] VITALS: BP 124/79
[2024-08-14 16:16] VITALS: BP 148/78; PULSE 61; O2SAT 96
[2024-08-14 16:57] LABS: Glucose - Point of Care 145 mg/dl (70-99)
[2024-08-14] MEDS: LOVENOX 40 MG SC (17:05)
[2024-08-14] MEDS: FLOMAX 0.8 MG PO (21:20)
[2024-08-14] MEDS: ARICEPT 10 MG PO (21:20)
[2024-08-14] MEDS: ATIVAN 0.5 MG PO (21:20)
[2024-08-14] MEDS: RISPERDAL 0.5 MG PO (21:20)
[2024-08-14 22:06] LABS: Glucose - Point of Care 172 mg/dl (70-99)
[2024-08-15 00:02] VITALS: BP 114/70
[2024-08-15 07:50] VITALS: BP 112/67
[2024-08-15 08:54] LABS: Glucose - Point of Care 155 mg/dl (70-99)
--- NOTE | 2024-08-15 08:55 | W.PN.HOSP.TC ---
Today's Communication/Plan
-
Discharge planning
Assessment / Plan
Assessment / Plan
General: No Apparent Distress and Comfortable
HEENT: Negative Oxygen
Respiratory: Clear to Auscultation
Cardiac: Regular Rhythm and S1/S2; Negative Murmur or Rub
GI: Soft, Nontender and Nondistended
Musculoskeletal: No Edema
Neuro: Awake
Psych: Calm
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
History of senile dementia
Calm in the hospital so far; psychiatry consulted for titration of his medications
Continue donepezil
Continue risperidone at night and as needed. added low dose risperidone in the morning
PT/OT
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
Mild hyponatremia
Resolved
History of Cirrhosis s/p Liver Transplant
History of Hepatitis B
- Continue tacrolimus/tenofovir
Chronic leukopenia -stable.
BPH
- continue tamsulosin
History of prostate cancer status post XRT
DM2 without hyperglycemia -glucose 157 this morning.
- sliding scale insulin for now
accuchecks
DVT PPX - lovenox sq
Code status - full code
Dispo -medically stable for SNF, discharge when bed available.
Anticipated Discharge: Within 24 hours
Subjective/Interval History
-
Date of Service: August 15, 2024
Patient seen and examined. No complaints.
Objective Data
-
Vital Signs:
Vital Signs
Temp Pulse Resp BP Pulse Ox
97.4 F 67 18 114/70 95
08/15/24 00:02 08/15/24 00:02 08/15/24 00:02 08/15/24 00:02 08/15/24 00:02
I&O
08/14/24 08/15/24 08/16/24
06:59 06:59 06:59
Intake Total 600 / 600 240 / 240
Output Total 275 / 275
Balance 325 / 325 240 / 240
Review of Systems
-
Unable to obtain full review of systems at this time due to: Dementia and Language Barrier
[2024-08-15] MEDS: PROGRAF 1 MG PO (09:18)
[2024-08-15] MEDS: NON-FORMULARY ITEM 25 MG PO (09:18)
[2024-08-15] MEDS: RISPERDAL M-TAB (ORALLY DISINTEGRATING) 0.25 MG PO (09:18)
[2024-08-15] MEDS: NOVOLOG FLEXPEN-LOW RESISTANCE 1 UNITS SC (09:19)
--- NOTE | 2024-08-15 11:02 | W.PN.UPDATE ---
Update Note
Progress Note Update
Patient seen at bedside, chart reviewed, discussed with staff. Patient is resting in bed. No acute issues overnight. He has remained calm. Discharge planning in the works. Seems to be tolerating medications.
Impression/Recommendations: Dementia with behavior disturbance - Continue Risperdal 0.5mg HS and 0.25mg in AM, Ativan 0.5mg HS. Caution for oversedation. Psych will sign off, reconsult with any new or immediate concerns.
[2024-08-15 12:24] LABS: Glucose - Point of Care 276 mg/dl (70-99)
[2024-08-15] MEDS: NOVOLOG FLEXPEN-LOW RESISTANCE 3 UNITS SC (12:47)
--- NOTE | 2024-08-15 13:51 | W.DS.TRANS ---
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
-
Discharge Instructions:
Discharge Diagnosis/Procedures Delirium, dementia, hyponatremia
Diet Regular
Activity As tolerated
Driving Restrictions As prior to admission
Bathing Restrictions None
Instructions:
Stand-Alone Forms:
Changes to Home Medications: No
Discharge Medications:
DC Medications w/original date entered in [facility]
donepezil 10 mg tablet 10 mg PO HS Neurological Condition 11/26/22
tacrolimus 1 mg capsule, immediate-release 1 mg PO DAILY Autoimmune Disorder 11/26/22
tamsulosin 0.4 mg capsule 0.8 mg PO HS Urinary Issue 11/26/22
escitalopram oxalate 5 mg tablet 5 mg PO DAILY Mental Health/Anxiety 06/24/23
loperamide 2 mg tablet (Anti-Diarrheal (loperamide)) 2 mg PO DAILY diarrhea 03/24/24
tenofovir alafenamide 25 mg tablet (Vemlidy) 25 mg PO DAILY Liver issues #0 tabs 04/04/24
repaglinide 0.5 mg tablet 0.5 mg PO BID 08/11/24
lorazepam 0.5 mg tablet 0.5 mg PO HS Mental Health/Anxiety #3 tabs 08/15/24
risperidone 0.5 mg disintegrating tablet 0.25 mg (1/2 x 0.5 mg) PO DAILY #0 tabs 08/15/24
risperidone 0.5 mg disintegrating tablet 0.5 mg PO TIDPRN PRN Agitation #0 tabs 08/15/24
risperidone 0.5 mg tablet 0.5 mg PO HS #0 tabs 08/15/24
Home Medication Changes
Pending Results: No
--- NOTE | 2024-08-15 14:14 | CM ---
Addendum entered by Farida Hawthorne 08/15/24 16:16:
Received call from [employer]. Auth has been approved beginning today, 08/15 NRD 08/21
Approved auth ref # [id number]. Facility to call [phone] for updates
Updated [facility] w/ auth info, able to take pt tomorrow morning. Requested 10 am transport time
Updated hospitalist, agreeable for d/c tomorrow
Pt will need ambulance transport
[facility]
Report: [phone]

Plan: [facility] tomorrow. Ambulance transport requested for 10 am
Original Note:
[facility] admissions able to accept pt today. Discussed w/ pt's son, Anjel, who is agreeable considering limited beds and some facilities not being able to support pt due to his dementia w/ behavioral disturbances.
CM called [phone], spoke w/ Jovita to initiate auth. Per Jovita, will forward to biomedical engineering technologist as pt walked 50 feet. CM will await call back for determination
Pending ref # [id number]
[2024-08-15 15:50] VITALS: BP 113/56
[2024-08-15 17:38] LABS: Glucose - Point of Care 66 mg/dl (70-99)
[2024-08-15] MEDS: NOVOLOG FLEXPEN-LOW RESISTANCE SC (17:41)
[2024-08-15] MEDS: LOVENOX 40 MG SC (18:33)
[2024-08-15 18:47] LABS: Glucose - Point of Care 133 mg/dl (70-99)
[2024-08-15 21:46] LABS: Glucose - Point of Care 159 mg/dl (70-99)
[2024-08-15] MEDS: ARICEPT 10 MG PO (22:31)
[2024-08-15] MEDS: FLOMAX 0.8 MG PO (22:31)
[2024-08-15] MEDS: RISPERDAL 0.5 MG PO (22:31)
[2024-08-15] MEDS: ATIVAN 0.5 MG PO (22:31)
[2024-08-15 23:11] VITALS: BP 115/67
[2024-08-15 23:56] LABS: Glucose - Point of Care 167 mg/dl (70-99)
--- NOTE | 2024-08-16 02:53 | DOWNTIME ---
There was a [employer] Client Senior Infrastructure Architect Downtime on 08/16/2024 from 0100 to 08/16/2023 at 0235 . Downtime documentation of patient's care, including medication administrations, has been reconciled in the electronic record per guidelines. Refer to the
patient's paper chart under the miscellaneous tab to see printed paper medication records and downtime forms.
[2024-08-16 03:11] LABS: Glucose - Point of Care 169 mg/dl (70-99)
[2024-08-16 07:47] LABS: Glucose - Point of Care 164 mg/dl (70-99)
[2024-08-16] MEDS: NOVOLOG FLEXPEN-LOW RESISTANCE 1 UNITS SC (07:47)
[2024-08-16] MEDS: RISPERDAL M-TAB (ORALLY DISINTEGRATING) 0.25 MG PO (07:48)
[2024-08-16] MEDS: PROGRAF 1 MG PO (07:48)
[2024-08-16] MEDS: NON-FORMULARY ITEM 25 MG PO (07:49)
[2024-08-16 07:50] VITALS: BP 126/70
--- NOTE | 2024-08-16 08:45 | CM ---
Pt will d/c to SNF today. Ambulance transport scheduled for 12 noon. Confirmed w/ [facility].
Updated pt's son, Anjel, on d/c to SNF today, agreeable.
IMM reviewed, copy on chart
[facility]
Report: [phone]

Plan: [facility] today via ambulance (12 pm transport time)
--- NOTE | 2024-08-16 09:02 | W.PN.HOSP.TC ---
Today's Communication/Plan
-
Discharge
Assessment / Plan
Assessment / Plan
General: No Apparent Distress and Comfortable
HEENT: Negative Oxygen
Respiratory: Clear to Auscultation
Cardiac: Regular Rhythm and S1/S2; Negative Murmur or Rub
GI: Soft, Nontender and Nondistended
Musculoskeletal: No Edema
Neuro: Awake
Psych: Calm
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
History of senile dementia
Calm in the hospital so far; psychiatry consulted for titration of his medications
Continue donepezil
Continue risperidone at night and as needed. added low dose risperidone in the morning
PT/OT
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
Mild hyponatremia
Resolved
History of Cirrhosis s/p Liver Transplant
History of Hepatitis B
- Continue tacrolimus/tenofovir
Chronic leukopenia -stable.
BPH
- continue tamsulosin
History of prostate cancer status post XRT
DM2 without hyperglycemia -glucose 157 this morning.
- sliding scale insulin for now
accuchecks
DVT PPX - lovenox sq
Code status - full code
Dispo -medically stable for SNF, discharge when bed available.
Anticipated Discharge: Today
Subjective/Interval History
-
Date of Service: August 16, 2024
Patient seen and examined. No complaints.
Objective Data
-
Vital Signs:
Vital Signs
Temp Pulse Resp BP Pulse Ox
97.6 F 75 20 126/70 96
08/16/24 07:50 08/16/24 07:50 08/16/24 07:50 08/16/24 07:50 08/16/24 08:00
I&O
08/15/24 08/16/24 08/17/24
06:59 06:59 06:59
Intake Total 240 / 240 120 / 120
Balance 240 / 240 120 / 120
Review of Systems
-
Unable to obtain full review of systems at this time due to: Language Barrier
[2024-08-16 11:05] VITALS: BP 117/64
[2024-08-16 12:11] LABS: Glucose - Point of Care 301 mg/dl (70-99)
[2024-08-16] MEDS: NOVOLOG FLEXPEN-LOW RESISTANCE 4 UNITS SC (12:51)
== END 2024-08-16 13:35 ==
LOC: 4 EAST ACU 23:55
PROVIDERS: Emergency Medicine; Internal Medicine; ADMITTING PHYSICIAN Internal Medicine; ATTENDING PHYSICIAN Hospitalist; EMERGENCY PHYSICIAN Emergency Medicine; FAMILY PHYSICIAN Family Medicine; OTHER PHYSICIAN Psychiatry & Neurology Psychiatry
DX: F03.911 Unspecified dementia, unspecified severity, with agitation (principal); F05 Delirium due to known physiological condition; R41.82 Altered mental status, unspecified; F03.918 Unspecified dementia, unspecified severity, with other behavioral disturbance; F03.92 Unspecified dementia, unspecified severity, with psychotic disturbance; I10 Essential (primary) hypertension; E11.9 Type 2 diabetes mellitus without complications; D72.819 Decreased white blood cell count, unspecified; E87.1 Hypo-osmolality and hyponatremia; R05.9 Cough, unspecified; N40.0 Benign prostatic hyperplasia without lower urinary tract symptoms; Z94.4 Liver transplant status; Z79.621 Long term (current) use of calcineurin inhibitor; Z79.624 Long term (current) use of inhibitors of nucleotide synthesis; Z60.3 Acculturation difficulty; Z79.899 Other long term (current) drug therapy; Z11.52 Encounter for screening for COVID-19; Z86.19 Personal history of other infectious and parasitic diseases; Z92.3 Personal history of irradiation; Z85.46 Personal history of malignant neoplasm of prostate
CPT/HCPCS: 70450; 71046; 80053; 81003; 81015; 82140; 82962; 83605; 83690; 85025; 87502; 87811; 97116; 97162; 97166; 97530; 99285; G0378